=== PATIENT | female | born 1995 | race African-American/Black ===

== ENCOUNTER 2021-09-08 13:31 | Outpatient (CLI) | payer OTHER, SELFPAY ==
--- NOTE | ~2021-09-08 | XR_ITS ---
XR abdomen/kub 1V DATE: 09/08/2021 13:53 INDICATION: Abdominal pain. Constipation. TECHNIQUE: AP projection, 2 views COMPARISON: None FINDINGS: No bowel obstruction, visceromegaly or any significant abnormal calcification is noted. IMPRESSION: Negative Reviewed, dictated and finalized at [facility]. Reviewed, dictated and finalized at location A. IMPRESSION: Negative
== END 2021-09-08 13:32 | disposition home or self-care (01) ==
PROVIDERS: PCP Nurse Practitioner Family; Visit Provider Nurse Practitioner Family
DX: K59.00 Constipation, unspecified (principal)
CPT/HCPCS: 74018

== ENCOUNTER 2021-12-13 11:56 | Emergency (ER) | payer OTHER, SELFPAY ==
[2021-12-13 12:01] VITALS: BP 127/110; PULSE 150; RESP 32; TEMP 36.5; O2SAT 99
[2021-12-13 12:06] VITALS: BP 127/110; PULSE 150; RESP 32; TEMP 36.5; O2SAT 99
--- NOTE | 2021-12-13 12:37 | ED.GENADULT ---
HPI - General Adult General Chief complaint: Abdominal Pain Stated complaint: VOMITING/ABD PAIN/SOB/TIRED Time Seen by Provider: 12/13/21 12:22 Source: patient Mode of arrival: ambulatory Limitations: no limitations History of Present Illness HPI narrative: Patient presents today complaining of pain to her abdominal muscles after vomiting 3 x 2 days ago. Also complains of fatigue. States she is no longer nauseated and has not been vomiting since the 3 episodes 2 days ago. She has been taking fluids normally and voiding normal amounts. She has not really tried much food since the vomiting episodes. She has tried some ibuprofen for her abdominal muscle pain, without much relief. She denies that she has any additional pains. Pain increases when she moves or take deep breaths. Denies fever. Reports some constipation for the last couple of days, but has been taking Dulcolax with some small results this morning. Related Data Home Medications Medication Instructions Recorded Confirmed hydrochlorothiazide 25 mg tablet 1 tablet PO DAILY 12/13/21 12/13/21 norethindrone (contraceptive) 0.35 1 tablet PO DAILY 12/13/21 12/13/21 mg tablet Allergies Allergy/AdvReac Type Severity Reaction Status Date / Time No Known Allergies Allergy Verified 12/13/21 12:05 Review of Systems Review of Systems: CONSTITUTIONAL: Denies body aches, fever, chills, or sweats.+ Fatigue EYES: Denies visual changes, redness, or discharge. ENT: Denies rhinorrhea, congestion, sore throat, or otalgia. CARDIOVASCULAR: Denies chest pain, palpitations, or edema. RESPIRATORY: Denies cough or dyspnea. GASTROINTESTINAL: Denies abdominal pain, nausea, vomiting, or diarrhea.+ Abdominal muscle pain GENITOURINARY: Denies dysuria or hematuria. SKIN: Denies rash, itching, or wounds. MUSCULOSKELETAL: Denies back pain, joint pain, or myalgia. NEUROLOGIC: Denies headache, numbness, tingling, or weakness. PSYCH: Denies depression or anxiety. PMFSH Comments At time of signature, I have reviewed and agree with nursing past medical, surgical, social and family history unless otherwise noted. Please see nursing chart for further information. There is no relevant family history pertinent to the presenting complaint Exam Narrative: GENERAL: Mildly ill-appearing, well-nourished, and in mild pain distress with movement only HEAD: Normocephalic, atraumatic. EYES: EOMI. No redness or drainage. Conjunctivae normal. ENT: Mucous membranes pink and moist. NECK: Normal AROM. Supple. No lymphadenopathy. CHEST: No respiratory distress. Clear to auscultation. HEART: Regular rate and rhythm. No murmur appreciated. Normal peripheral pulses. ABDOMEN: Soft, nondistended, normal active bowel sounds.+generalized abdominal tenderness. No rebound or guarding. Pt localizes her most severe discomfort in the bilateral waist. Pain in abdomen with inspiration EXTREMITIES: Normal range of motion. No edema. SKIN: Warm, dry, no rash. Capillary refill normal. Normal skin turgor. NEURO: No focal deficits. Alert and oriented x3. Gait steady. PSYCH: Normal affect. No signs of depression or anxiety. Course Course Emergency Course: 1315- Patient states abdominal pain has improved after toradol. VS repeated by RN. HR continues to be elevated at 142. Now adds that she is very thirsty but has been drinking plenty. Level of Care: Express Care Visit Vital Signs Vital signs: Vital Signs Temperature 97.7 F 12/13/21 12:01 Pulse Rate 150 H 12/13/21 12:01 Respiratory Rate 32 H 12/13/21 12:01 Blood Pressure 127/110 H 12/13/21 12:01 Pulse Oximetry 99 12/13/21 12:01 Oxygen Delivery Room Air 12/13/21 12:01 Temperature 97.7 F 12/13/21 12:06 Pulse Rate 142 H 12/13/21 13:04 Respiratory Rate 18 12/13/21 13:04 Blood Pressure 145/97 H 12/13/21 13:04 Pulse Oximetry 99 12/13/21 13:04 Oxygen Delivery Room Air 12/13/21 13:04 Reviewed. Pt has been instructed to fo
[2021-12-13] MEDS: KETOROLAC (*BKC) 60 MG/2 ML VIAL IM (12:41)
[2021-12-13 13:04] VITALS: BP 145/97; PULSE 142; RESP 18; O2SAT 99
--- NOTE | 2021-12-13 13:13 | ECG_ITS ---
Measurements Intervals [place] Rate: 136 P: 30 [place]: 173 QRS: 80 QRSD: 86 T: -23 QT: 330 QTc: 498 Interpretive Statements SINUS TACHYCARDIA ST-T WAVE ABNORMALITY IN INFERIOR LEADS- CONSIDER ISCHEMIA ABNORMAL ECG Electronically Signed On 12-13-2021 17:20:24 CDT by Pavan Lang D.O.
[2021-12-13 14:23] LABS: Glucose Point of Care 233 mg/dl (65-105)
== END 2021-12-13 13:39 | disposition short-term general hospital (02) ==
PROVIDERS: Emergency Provider Nurse Practitioner; PCP Nurse Practitioner Family
DX: R10.9 Unspecified abdominal pain (principal); R00.0 Tachycardia, unspecified
CPT/HCPCS: 82948; 93005; 96372; 99213; G0463; J1885

== ENCOUNTER 2021-12-13 13:53 | Inpatient (IN) | payer OTHER, SELFPAY ==
[2021-12-13] VITALS (8 sets, daily range): BP systolic 112–167; BP diastolic 66–124; PULSE 114–142; RESP 16–38; TEMP 36.4; O2SAT 97–100
--- NOTE | ~2021-12-13 | US_ITS ---
US abdomen limited DATE: 12/16/2021 09:12 INDICATION: Pancreatitis. Evaluate for gallstones. TECHNIQUE: Real-time imaging of liver, pancreas, gallbladder COMPARISON: 12/15/2021 CT abdomen pelvis FINDINGS: No hepatic space-occupying mass lesion is evident. Normal hepatopedal portal venous flow di rection. Common bile duct measures 3.9 mm, normal. There is prominent shadowing from the gallbladder contents consistent with cholelithiasis. The pancreas is largely obscured. IMPRESSION: Cholelithiasis Reviewed, dictated and finalized at [facility]. Reviewed, dictated and finalized at location [facility]. IMPRESSION: Cholelithiasis
--- NOTE | ~2021-12-13 | CT_ITS ---
EXAMINATION: CT abdomen pelvis w con DATE: 12/13/2021 15:57 INDICATION: diffuse abd most noted in epigastric and RUQ TECHNIQUE: Computed tomography (CT) of the abdomen and pelvis was performed with 100 mL Omnipaque-300 intravenous contrast. Automated exposure control and iterative reconstruction technique were employe d. The dose-length product was 1677.92 mGy-cm. COMPARISON: None. FINDINGS: Lower thorax: Bibasilar atelectasis. Liver: Steatosis. Biliary/Gallbladder: Normal size gallbladder, without stone. Mucosal hyperemia extending into the ext rahepatic ducts, likely reactive. No bile duct dilation. Pancreas: Edematous pancreas, with lack of enhancement involving the majority of the pancreatic body and a large peripancreatic fluid collection that extends into the mesentery, lesser sac, alison hepati s, perihepatic and perisplenic spaces, left pararenal space, left paracolic gutter, and deep pelvic s pace. The splenic vein, confluence, and proximal portal vein are narrowed, without definite thrombus. Spleen: Normal. Adrenals:No mass. Kidneys: No mass, stone, or hydronephrosis. GI tract: No small or large bowel dilation. Normal appendix. Mesentery/Peritoneum: No free air or mass. Fluid as described above. Retroperitoneum: No mass. Fluid as described above. Pelvis: Pelvic organs are within normal limits. Fluid as described above. Soft Tissues: Soft tissues and body wall unremarkable. Bones: No acute osseous finding. IMPRESSION: Severe acute necrotizing pancreatitis. Reviewed, dictated and finalized at location [facility].
--- NOTE | ~2021-12-13 | CT_ITS ---
EXAMINATION: CT abdomen pelvis w con DATE: 12/15/2021 09:44 INDICATION: Pancreatitis TECHNIQUE: Computed tomography (CT) of the abdomen and pelvis was performed with 100 mL Omnipaque-300 intravenous contrast. Automated exposure control and iterative reconstruction technique were employe d. The dose-length product was 1561.21 mGy-cm. COMPARISON: None FINDINGS: Small bilateral posterior layering pleural effusions with associated compressive atelectasis in the b ilateral lower lobes. Cardiomegaly. No pericardial effusion. Liver, gallbladder, spleen, bilateral ad renal glands and kidneys are normal. Again seen is diffuse pancreatic edema with geographic region of absent parenchymal enhancement at the tail of the pancreas consistent with necrotic pancreatitis. Pe rsistent still nonorganized appearing acute peripancreatic fluid collection no evident abscesses, pse udocyst or walled off necrosis. Prominent likely reactive periportal lymphadenopathy. No evident thro mbosis of the splenic, superior mesenteric or portal veins. Additional small amount of ascites in the abdomen and pelvis. Bladder, uterus and bilateral adnexa are normal. There is edematous wall thicken ing of the splenic flexure and descending colon most likely reactive related to the adjacent acute pa ncreatitis although differential includes other nonspecific colitis. No bowel obstruction. Normal brianda endix. Bones are unremarkable. IMPRESSION: 1. No significant interval change in acute necrotic pancreatitis with radionecrosis at the body of th e pancreas and surrounding nonorganized appearing acute peripancreatic fluid collection. 2. Wall thickening at the splenic flexure and descending colon most likely reactive related to the ad jacent pancreatitis although differential would include other nonspecific colitis which could be infe ctious, inflammatory or ischemic etiology. 3. Small amount of more diffuse ascites and small bilateral pleural effusions. 4. Mild cardiomegaly. Reviewed, dictated and finalized at location A. IMPRESSION: 1. No significant interval change in acute necrotic pancreatitis with radionecr osis at the body of the pancreas and surrounding nonorganized appearing acute p eripancreatic fluid collection. 2. Wall thickening at the splenic flexure and descending colon most likely reac tive related to the adjacent pancreatitis although differential would include o ther nonspecific colitis which could be infectious, inflammatory or ischemic et iology. 3. Small amount of more diffuse ascites and small bilateral pleural effusions. 4. Mild cardiomegaly.
--- NOTE | ~2021-12-13 | CT_ITS ---
EXAMINATION: CTA chest PE protocol DATE: 12/14/2021 22:52 INDICATION: Shortness of breath TECHNIQUE: Computed tomography angiography (CTA) of the chest was performed with 100 mL Omnipaque-350 intravenous contrast timed to evaluate the pulmonary arteries. Coronal maximum intensity projection 3D-reconstructions were created by the technologist. The dose-length product (DLP) was 757.84 mGy-cm. Automated exposure control and iterative reconstruction technique were employed. COMPARISON: None. FINDINGS: The pulmonary arteries are well-opacified. No pulmonary embolism is identified. Respiratory motion artifact slightly limits the exam. There are small pleural effusions. There is passive depend ent atelectasis in the lungs. Areas of patchy airspace opacity are noted in the upper lobes. No pneum othorax. Cardiomegaly is noted. No pathologically enlarged thoracic lymph nodes are identified. There is a small volume of ascites in the upper abdomen. IMPRESSION: 1. No pulmonary embolus identified. 2. Small pleural effusions with atelectasis versus pneumonia in the lower lobes. 3. Cardiomegaly. Reviewed, dictated and finalized at location B. IMPRESSION: 1. No pulmonary embolus identified. 2. Small pleural effusions with atelectasis versus pneumonia in the lower lobes . 3. Cardiomegaly.
--- NOTE | ~2021-12-13 | XR_ITS ---
EXAMINATION: XR chest PICC line INDICATION: PICC insertion TECHNIQUE: Portable AP chest at 1156 hours COMPARISON: CT, 12/14/2021 FINDINGS: A right upper extremity PICC is followed to the midsuperior vena cava. There are small pleu ral effusions. Bibasilar airspace opacities persist without significant change. No pneumothorax is id entified. Cardiomegaly is noted. IMPRESSION: 1. Right upper extremity followed to the midsuperior vena cava. 2. Small pleural effusions. 3. Bibasilar airspace opacities, consistent with atelectasis versus pneumonia. Reviewed, dictated and finalized at location B.
--- NOTE | 2021-12-13 14:16 | ED.ABDPAIN ---
HPI - Abdominal Pain General Chief Complaint: Abdominal Pain <Kody Evans MD - Last Filed: 12/16/21 07:01> Stated Complaint: abd pain, fast HR <Kody Evans MD - Last Filed: 12/16/21 07:01> Time Seen by Provider: 12/13/21 14:04 <Kody Evans MD - Last Filed: 12/16/21 07:01> Source: patient <Kody Evans MD - Last Filed: 12/16/21 07:01> History of Present Illness HPI narrative: Patient presents with abdominal pain nausea vomiting and tachycardia. Patient ports she has had diffuse abdominal pain mostly in the epigastric area for the past few days associate with nausea and vomiting. She thought her abdominal pain is related to her vomiting is just muscle soreness. Denies any diarrhea or fevers. She denies any blood or bile in her excretions. She denies any urinary symptoms she does report increased thirst. She initially presented to an urgent care and was found to have a heart rate of the 150s so she came to the ER for further evaluation. <Kody Evans MD - Last Filed: 12/16/21 07:01> Related Data Home Medications: Home Medications Medication Instructions Recorded Confirmed hydrochlorothiazide 25 mg tablet 1 tablet PO DAILY 12/13/21 12/15/21 norethindrone (contraceptive) 0.35 1 tablet PO DAILY 12/13/21 12/15/21 mg tablet <Kody Evans MD - Last Filed: 12/16/21 07:01> Allergies/Adverse Reactions: Allergies Allergy/AdvReac Type Severity Reaction Status Date / Time No Known Allergies Allergy Verified 12/13/21 12:05 <Kody Evans MD - Last Filed: 12/16/21 07:01> Review of Systems Review of Systems: CONSTITUTIONAL: Denies fever, chills, or sweats. EYES: Denies visual changes, redness, or discharge. ENT: Denies rhinorrhea, congestion, sore throat, or otalgia. CARDIOVASCULAR: Denies chest pain, palpitations, or edema. RESPIRATORY: Denies cough or dyspnea. GASTROINTESTINAL: Abdominal pain with nausea and vomiting GENITOURINARY: Denies dysuria or hematuria. SKIN: Denies rash or itching. MUSCULOSKELETAL: Denies back pain, joint pain, or myalgia. NEUROLOGIC: Denies headache, numbness, dizziness, or weakness. PSYCHIATRIC: Denies anxiety or depression. <Kody Evans MD - Last Filed: 12/16/21 07:01> All systems reviewed & are unremarkable except as noted in HPI and below <Kody Evans MD - Last Filed: 12/16/21 07:01> PMFSH Past Medical History Medical History: Medical History Hypertension <Kody Evans MD - Last Filed: 12/16/21 07:01> Family History Family History: Family History Mother Heart disease Renal failure Hypertension Grandparent Hypertension History of TIAs <Kody Evans MD - Last Filed: 12/16/21 07:01> Social History Social History: Social History (Updated 12/15/21 @ 11:00 by SILAS Mcgill) Social History: Patient currently lives with her mother and her grandmother. She has no pets. Her mother Anita will be her surrogate. She wishes to be a full code. Smoking status: Never smoker Alcohol intake: never Substance use: current Substance use type: marijuana Other substance usage details: marijuana not often once every 2 months Last use: 11/09/21 Living arrangements: with family Additional living arrangements comments: Lives with her mother and grandmother Occupation/Education: occupation Additional occupation/education comments: [employer] in [place] Gender identity (if verbalized by the patient): Female Sexual Orientation (if Verbalized by the Patient): Straight or Heterosexual Spiritual care concerns: No Agree to blood products: Yes <Kody Evans MD - Last Filed: 12/16/21 07:01> Exam Narrative: GENERAL: Well-appearing, well-nourished, and in no acute distress. HEAD: Normocephalic, atraumatic. EYES: PERRLA and EOMI.
[2021-12-13] MEDS: SODIUM CHLORIDE 0.9% IV 1,000 ML 999 ML IV CONT ×3 (14:18→21:28)
[2021-12-13] MEDS: ONDANSETRON INJ 4 MG/2 ML VIAL IV PUSH (14:19)
[2021-12-13 14:25] LABS: Hematocrit 47.9 % (37.0-47.0); Hemoglobin 15.5 g/dL (12.0-15.0); Mean Corpuscular HGB Conc 32.4 g/dl (32-36); Mean Corpuscular Hemoglobin 25.8 pg (26-34); Mean Corpuscular Volume 79.7 fl (80-100); Mean Platelet Volume 9.6 fl (7.4-10.4); Platelet Count Result 392 k/mm3 (150-375); Red Blood Count 6.01 M/mm3 (4.2-5.4); Red Cell Distribution Width 13.7 % (11.5-14.5); White Blood Count 31.8 K/mm3 (4.5-10.0)
[2021-12-13 14:39] LABS: Alanine Aminotransferase 40 U/L (6-35); Albumin Level 3.9 g/dL (3.5-5.1); Alkaline Phosphatase 112 U/L (38-126); Anion Gap 11 mmol/L (8-16); Aspartate Amino Transferase 40 U/L (14-36); Bilirubin,Total 1.8 mg/dL (0.2-1.3); Blood Urea Nitrogen 16 mg/dL (7-17); Calcium 8.2 mg/dL (8.4-10.2); Carbon Dioxide 25 mmol/L (22-30); Chloride 95 mmol/L (98-107); Estimated CRCL calculation 75 ml/min; Estimated Glomerular Filt Rate > 60; Glucose 203 mg/dL (65-110); Potassium 2.7 mmol/L (3.4-5.0); Sodium 131 mmol/L (137-145)
[2021-12-13 14:40] LABS: Beta-Hydroxybutyrate/Acetoacetate 0.26 mmol/L (0.02-0.27)
--- NOTE | 2021-12-13 14:41 | ECG_ITS ---
Measurements Intervals [place] Rate: 112 P: 7 [place]: 130 QRS: 56 QRSD: 82 T: -19 QT: 353 QTc: 484 Interpretive Statements SINUS TACHYCARDIA BORDERLINE ST-T WAVE ABNORMALITY- INFERIOR LEADS BASELINE ARTIFACT- V6 ABNORMAL ECG Electronically Signed On 12-13-2021 17:24:29 CDT by Pavan Lang D.O.
[2021-12-13 15:00] LABS: Lipase 5444 U/L (23-300)
[2021-12-13 15:09] LABS: Band Neutrophils Percent 7 % (0-6); Lymphocytes Absolute Manual 1.27 K/mm3 (1.1-4.5); Monocytes Absolute Manual 3.18 K/mm3 (0.1-0.90); Monocytes Percent Manual 10 % (3-9); Neutrophils Absolute Manual 27.34 K/mm3 (1.7-7.2); Neutrophils Percent Manual 79 % (46-73); Total Cells Counted 100
[2021-12-13 15:10] LABS: Stomatocytes 1+ (NORMAL)
[2021-12-13] MEDS: KCL 20 MEQ/SW 100 ML 100 ML 50 MEQ IVPB (15:27)
[2021-12-13] MEDS: KETOROLAC 15 MG/ML VIAL (*BKC) IV PUSH (15:27)
[2021-12-13 16:14] LABS: SARS-CoV-2 RNA PCR Negative
[2021-12-13 16:16] LABS: Triglycerides 80 mg/dL (<150)
[2021-12-13] MEDS: SODIUM CHLORIDE 0.9% IV 2,000 ML 999 ML IV CONT (16:50)
[2021-12-13 16:54] LABS: Appearance Urine Slightly Cloudy (Clear); Bilirubin Urine 1+ (Negative); Color Urine Yellow (Yellow); Glucose Urine UA Negative (Negative); Ketones Urine Negative (Negative); Leukocyte Esterase Ur Negative LEU/UL (Negative); Nitrate Urine Negative (Negative); Protein Urine 2+ mg/dL (Negative); Specific Grav Ur 1.025 (1.001-1.035)
[2021-12-13 16:59] LABS: Add Urine Microscopic? YES; Blood Urine Trace-Intact (Negative); Mucus Urine Few /lpf; Squamous Epithelial Cell Urine Many /hpf (Few)
[2021-12-13 17:34] LABS: Magnesium 1.7 mg/dL (1.6-2.3); Phosphorus 3.7 mg/dL (2.5-4.5)
[2021-12-13] MEDS: MORPHINE SULFATE (*CRX) 4 MG/ML INJ IV PUSH (19:00)
[2021-12-13 20:20] LABS: Lactic Acid Reflex 2.3 mmol/L (0.7-2.0)
[2021-12-13 23:08] LABS: Reflex Lactic Acid Yes or No Add Lactic
[2021-12-14] VITALS (78 sets, daily range): BP systolic 120–153; BP diastolic 57–91; PULSE 87–135; RESP 12–46; TEMP 37–38.7; O2SAT 92–100
[2021-12-14] MEDS: SODIUM CHLORIDE 0.9% IV 1,000 ML 125 ML IV CONT ×3 (00:14→18:07)
[2021-12-14 00:40] LABS: Lactic Acid 1.6 mmol/L (0.7-2.0)
--- NOTE | 2021-12-14 00:51 | PC.NURSE ---
Spoke with Janki from [facility] transfer center. No beds at this time, will call back in 12 hours with update.
--- NOTE | 2021-12-14 05:24 | PC.NURSE ---
RN and EDP tech attempted morning lab draw, no success. This RN called phlebotomy who states they will come when available.
[2021-12-14] MEDS: hydroCHLOROthiazide 25 MG TABLET PO (13:34)
--- NOTE | 2021-12-14 15:42 | ECG_ITS ---
Measurements Intervals [place] Rate: 111 P: 6 [place]: 139 QRS: 36 QRSD: 103 T: 22 QT: 262 QTc: 356 Interpretive Statements SINUS TACHYCARDIA NONSPECIFIC T-WAVE ABNORMALITY- ANT/INF LEADS ABNORMAL ECG Electronically Signed On 12-16-2021 15:44:35 CDT by Pavan aLng D.O.
--- NOTE | 2021-12-14 15:47 | PC.NURSE ---
Nick Setter spoke with [facility] transfer center. still no beds available at this time. pt updated. no requests at this time. pt resting comfortably in hospital stretcher.
[2021-12-14 18:25] LABS: Basophils Percent Auto 0.2 % (0.2-1.2); Eosinophils Percent Auto 0.1 % (0-4.4); Hematocrit 35.4 % (37.0-47.0); Hemoglobin 11.4 g/dL (12.0-15.0); Immature Granulocyte Absolute 0.27 K/mm3 (0.00-0.031); Immature Granulocyte Percent A 1.4 % (0-0.5); Lymphocytes Absolute Auto 1.66 K/mm3 (0.9-3.2); Lymphocytes Percent Auto 8.4 % (18.3-44.2); Mean Corpuscular HGB Conc 32.2 g/dl (32-36); Mean Corpuscular Hemoglobin 26.2 pg (26-34); Mean Corpuscular Volume 81.4 fl (80-100); Mean Platelet Volume 9.7 fl (7.4-10.4); Monocytes Absolute Auto 1.1 K/mm3 (0.1-0.6); Monocytes Percent Auto 5.7 % (2.6-8.5); Neutrophils Absolute Auto 16.6 K/mm3 (1.3-6.7); Neutrophils Percent Auto 84.2 % (45.5-73.1); Platelet Count Result 244 k/mm3 (150-375); Red Blood Count 4.35 M/mm3 (4.2-5.4); Red Cell Distribution Width 13.9 % (11.5-14.5); White Blood Count 19.7 K/mm3 (4.5-10.0)
--- NOTE | 2021-12-14 18:32 | PC.NURSE ---
called u access line [phone], no bed yet.
[2021-12-14 18:49] LABS: Alanine Aminotransferase 25 U/L (6-35); Albumin Level 3.2 g/dL (3.5-5.1); Alkaline Phosphatase 85 U/L (38-126); Anion Gap 6 mmol/L (8-16); Aspartate Amino Transferase 28 U/L (14-36); Blood Urea Nitrogen 11 mg/dL (7-17); Calcium 7.4 mg/dL (8.4-10.2); Carbon Dioxide 26 mmol/L (22-30); Chloride 103 mmol/L (98-107); Estimated CRCL calculation 109 ml/min; Estimated Glomerular Filt Rate > 60; Glucose 103 mg/dL (65-110); Lipase 1353 U/L (23-300); Potassium 2.7 mmol/L (3.4-5.0); Sodium 135 mmol/L (137-145)
[2021-12-14] MEDS: KCL 40 MEQ/WATER 100 ML 100 ML 25 ML IVPB (19:50)
--- NOTE | 2021-12-14 22:25 | PC.NURSE ---
called [facility] transfer center to check on bed status. No bed available yet.
[2021-12-15] VITALS (37 sets, daily range): BP systolic 122–147; BP diastolic 69–83; PULSE 84–138; RESP 14–42; TEMP 36.8–38.3; O2SAT 90–100; BMI 47.3
[2021-12-15] MEDS: ONDANSETRON INJ 4 MG/2 ML VIAL IV PUSH ×2 (00:32→11:17)
[2021-12-15] MEDS: SODIUM CHLORIDE 0.9% IV 1,000 ML 125 ML IV CONT (05:18)
--- NOTE | 2021-12-15 05:28 | PC.NURSE ---
Spoke with [facility] transfer center. They are still working on getting a bed for this patient.
[2021-12-15 06:15] LABS: Hematocrit 33.9 % (37.0-47.0); Hemoglobin 10.7 g/dL (12.0-15.0); Mean Corpuscular HGB Conc 31.6 g/dl (32-36); Mean Corpuscular Hemoglobin 25.8 pg (26-34); Mean Corpuscular Volume 81.7 fl (80-100); Mean Platelet Volume 9.7 fl (7.4-10.4); Platelet Count Result 248 k/mm3 (150-375); Red Blood Count 4.15 M/mm3 (4.2-5.4); Red Cell Distribution Width 14.1 % (11.5-14.5); White Blood Count 20.1 K/mm3 (4.5-10.0)
[2021-12-15 06:30] LABS: Alanine Aminotransferase 22 U/L (6-35); Albumin Level 3.3 g/dL (3.5-5.1); Alkaline Phosphatase 84 U/L (38-126); Anion Gap 7 mmol/L (8-16); Aspartate Amino Transferase 28 U/L (14-36); Bilirubin,Total 0.8 mg/dL (0.2-1.3); Blood Urea Nitrogen 7 mg/dL (7-17); Calcium 7.5 mg/dL (8.4-10.2); Carbon Dioxide 25 mmol/L (22-30); Chloride 103 mmol/L (98-107); Estimated CRCL calculation 123 ml/min; Estimated Glomerular Filt Rate > 60; Glucose 98 mg/dL (65-110); Lipase 496 U/L (23-300); Potassium 2.6 mmol/L (3.4-5.0); Sodium 135 mmol/L (137-145)
--- NOTE | 2021-12-15 07:24 | PC.NURSE ---
Assumed care of pt. at this time. Report from BOBBI Blanton
--- NOTE | 2021-12-15 07:38 | PC.NURSE ---
Bed status check at [facility] Per Tianna at [facility] - No ICU beds waiting on discharges and transfers will update
[2021-12-15] MEDS: POTASSIUM CHLORIDE INJ 40 MEQ in SODIUM CHLORIDE 0.9% IV 500 ML 130 MEQ IVPB ×2 (07:56→15:51)
[2021-12-15] MEDS: LACTATED RINGERS 1,000 ML 150 ML IV CONT (07:57)
[2021-12-15] MEDS: MORPHINE SULFATE (*CRX) 4 MG/ML INJ IV PUSH (08:01)
[2021-12-15 08:47] LABS: Band Neutrophils Percent 13 % (0-6); Hypochromasia 1+ (NORMAL); Monocytes Percent Manual 4 % (3-9); Neutrophils Absolute Manual 18.69 K/mm3 (1.7-7.2); Neutrophils Percent Manual 80 % (46-73); Platelet Estimate Adequate (Adequate); Total Cells Counted 100
[2021-12-15 08:48] LABS: Anisocytosis 1+ (NORMAL)
[2021-12-15] MEDS: hydroCHLOROthiazide 25 MG TABLET PO (09:26)
[2021-12-15] MEDS: PIPERACILLIN/TAZOBACTAM SOD 4.5 GM in SODIUM CHLORIDE 0.9% IV 100 ML 200 ML IVPB (10:18)
--- NOTE | 2021-12-15 10:51 | PM.IMHP ---
H&P: HPI History of Present Illness Date/Time: 12/15/21 10:00 Chief Complaint: Abdominal pain accompanied with nausea and vomiting Narrative: Patient is a 26-year-old female with a past medical history of hypertension who presented to the ED with abdominal pain for the past few days. Patient stated that on Tuesday night she started to have abdominal pain and felt like she to use the bathroom however she then started to vomit. It is on Tuesday she was really weak and short of breath and could not stand and was trying to take a shower she was unable to function at that time. She did take 2 Dulcolax at home trying to have bowel movement thinking that would solve her pain however which is causing have diarrhea on Tuesday and her pain is still there. On Tuesday she did go to urgent care however urgent care center to the hospital because her heart rate was elevated in the 150s. She did have any chest pain however she said she did have some palpitations and she still heart rate was up. Currently she is resting comfortably. Patient stated that they gave her some morphine to help with the diarrhea but she stated that she still has the pain and feels like she still could go to the bathroom. She did state that she was urinating about every hour and that she always has a headache. She denies any visual or hearing changes, dizziness, abnormal swelling, fevers, sweats, chills. It appears the ED did contact [facility] who accepted the patient. Repeat abdomen CT showed acute on chronic pancreatitis with radionecrosis of the bottom of the pancreas, wall thickening of the splenic flexure and descending colon. Patient is being admitted to the hospital service under in patient's service waiting bed placement a tertiary center. Review of Systems Review of Systems: All systems reviewed & are unremarkable except as noted in HPI and below PMFSH Past Medical History Medical History Hypertension Family History Family History Mother Heart disease Renal failure Hypertension Grandparent Hypertension History of TIAs Social History Social History (Updated 12/15/21 @ 11:00 by SILAS Mcgill) Social History: Patient currently lives with her mother and her grandmother. She has no pets. Her mother Anita will be her surrogate. She wishes to be a full code. Smoking status: Never smoker Alcohol intake: never Substance use: current Substance use type: marijuana Other substance usage details: marijuana not often once every 2 months Last use: 11/09/21 Living arrangements: with family Additional living arrangements comments: Lives with her mother and grandmother Occupation/Education: occupation Additional occupation/education comments: [employer] in [place] Gender identity (if verbalized by the patient): Female Sexual Orientation (if Verbalized by the Patient): Straight or Heterosexual Spiritual care concerns: No Agree to blood products: Yes Meds Home Medications and Allergies Home Medications Medication Instructions Recorded Confirmed Type hydrochlorothiazide 25 mg tablet 1 tablet PO DAILY 12/13/21 12/15/21 History norethindrone (contraceptive) 0.35 1 tablet PO DAILY 12/13/21 12/15/21 History mg tablet Allergies Allergy/AdvReac Type Severity Reaction Status Date / Time No Known Allergies Allergy Verified 12/13/21 12:05 Vital Signs Vital Signs - 24 hr 12/14/21 10:57 12/14/21 12:27 12/14/21 15:36 Temperature Pulse Rate 112 H 111 H 115 H Respiratory Rate 27 H 17 25 H Blood Pressure 150/70 H 153/91 H 133/80 Pulse Oximetry 99 96 98 Oxygen Delivery Oxygen Flow Rate 12/14/21 18:10 12/14/21 10:58 12/14/21 12:51 Temperature Pulse Rate 107 H 118 H 99 Respiratory Rate 27 H 27 H 34 H Blood Pressure 140/81 150/70 H Pulse Oximetry 99 99 Oxygen Delivery Oxygen Fl
--- NOTE | 2021-12-15 14:55 | ADMGEN ---
This patient, Deepti De La Fuente, was admitted to [facility] Surg Room 311-01. Patient/family oriented to hospital policies and general routines including ID bracelet, bed and alarms, visiting hours, pain management, procedures, bathroom and other care routines, personal items, smoking policy, room service/diet, and visiting hours. Information on how to activate the Rapid Response Team has been discussed. Patient/Family are encouraged to report perceived risks to care and to ask questions if they do not understand what they are told or what they should do.
[2021-12-15] MEDS: MORPHINE SULFATE (*CRX) 2 MG/ML INJ IV PUSH (18:43)
--- NOTE | 2021-12-15 19:10 | PM.CNGS ---
Assessment and Plan Assessment and plan (1) Acute necrotizing pancreatitis: Code(s): K85.91 - Acute pancreatitis with uninfected necrosis, unspecified Status: Acute Assessment and Plan: This appears to be severe even though the patient seems to be improving over the last 48 hours. Today her lipase is down to 469 so this is going the right direction. However, because of the severe changes and possible necrotizing changes on her original CT done on 12/13/2021, I asked the ER MD When she 1st called to consult me, to repeat it and they did this morning. This shows unchanged significant edema and some areas of questionable perfusion to the body or tail the pancreas. (see report). There was significant edema throughout the area of the pancreas including some signs of inflammation of the wall of the colon anterior and next to the pancreas and spleen. Etiology is questionable but patient denies use of alcohol for least 1 week prior to developing the pain described above, and she did state that she has some Trisha's about the middle of November. Also, her CT scan does not show any gallbladder inflammation, bile duct dilation, or signs of gallstones. And as for side effects from drugs which is the may be the 3rd most common cause for pancreatitis, she is on hydrochlorothiazide which has been implicated in the past to possibly lead to pancreatic inflammation. Her triglycerides were checked in the ER 2 days ago and these are normal, however will do a lipid panel in the morning to be sure other blood lipids are not elevated. (2) Hypertension: Code(s): I10 - Essential (primary) hypertension Status: Acute Assessment and Plan: continue to monitor. (3) Tachycardia: Code(s): R00.0 - Tachycardia, unspecified Status: Acute Assessment and Plan: EKG okay and it appears to be a sinus tachycardia. This is most likely due to fluid shifts and her pancreatitis. (4) Leukocytosis (leucocytosis): Qualifiers: Leukocytosis type: unspecified Qualified Code(s): D72.829 - Elevated white blood cell count, unspecified Code(s): D72.829 - Elevated white blood cell count, unspecified Status: Acute Assessment and Plan: Possibly related to atelectasis leading to pneumonia. ( Now patient on antibiotics) (5) Pneumonia: Code(s): J18.9 - Pneumonia, unspecified organism Status: Acute Assessment and Plan: suspected by chest x-ray (see report). History of Present Illness Consult details Consult date: 12/15/21 Reason for consult: abdominal pain Requesting physician: Gary Her APN-C Narrative: The patient is a 26-year-old [facility] female with a past medical history of hypertension who presented to the ED with abdominal pain and some episodes of nausea and vomiting on 12/13 for the few days prior to admission.? Patient stated that on Tuesday night she started to have abdominal pain and felt like she needed to use the bathroom, however she then started to vomit also earlier on Tuesday in the mid day she felt epigastric discomfort and thought she was hungry. She tried eating a Nickolas cracker and then later had a hamburger fries and some asparagus. It was after this last meal that she really got sicker.? Tuesday about midnight is the 1st time that she vomited. It is on Tuesday she was really weak and short of breath and could not stand and was trying to take a shower but she was really unable to function at that time.? She did take 2 Dulcolax tabs at home trying to have a bowel movement thinking that would solve her pain. However, i did not help immediately but while she was in the ED yesterday, Thursday 12/14, she had between 3 and 6 loose stools.? On Tuesday she did go to urgent care however urgent care sent her to the hospital because her heart rate was elevated in the 150s.? She did not have any chest pain however she said she did have some palpitations and she still he
[2021-12-15] MEDS: KCL 40 MEQ/0.45% NS 1,000 ML 100 ML IV CONT (22:27)
[2021-12-16] VITALS (8 sets, daily range): BP systolic 100–150; BP diastolic 45–89; PULSE 97–114; RESP 16–34; TEMP 36–37.7; O2SAT 91–99
[2021-12-16] MEDS: MORPHINE SULFATE (*CRX) 4 MG/ML INJ IV PUSH (01:59)
[2021-12-16] MEDS: KCL 40 MEQ/0.45% NS 1,000 ML 100 ML IV CONT ×2 (05:53→18:56)
[2021-12-16 07:31] LABS: Basophils Absolute Auto 0.1 K/mm3 (0.0-0.1); Basophils Percent Auto 0.3 % (0.2-1.2); Eosinophils Absolute Auto 0.1 K/mm3 (0-0.3); Eosinophils Percent Auto 0.4 % (0-4.4); Hematocrit 30.3 % (37.0-47.0); Hemoglobin 9.5 g/dL (12.0-15.0); Immature Granulocyte Absolute 0.17 K/mm3 (0.00-0.031); Immature Granulocyte Percent A 1.1 % (0-0.5); Lymphocytes Percent Auto 10.5 % (18.3-44.2); Mean Corpuscular HGB Conc 31.4 g/dl (32-36); Mean Corpuscular Hemoglobin 25.7 pg (26-34); Mean Corpuscular Volume 81.9 fl (80-100); Mean Platelet Volume 10.2 fl (7.4-10.4); Monocytes Absolute Auto 1.6 K/mm3 (0.1-0.6); Monocytes Percent Auto 10.1 % (2.6-8.5); Neutrophils Absolute Auto 12.5 K/mm3 (1.3-6.7); Neutrophils Percent Auto 77.6 % (45.5-73.1); Platelet Count Result 286 k/mm3 (150-375); Red Cell Distribution Width 14.1 % (11.5-14.5); White Blood Count 16.2 K/mm3 (4.5-10.0)
[2021-12-16 07:45] LABS: Alanine Aminotransferase 17 U/L (6-35); Albumin Level 3.1 g/dL (3.5-5.1); Alkaline Phosphatase 80 U/L (38-126); Anion Gap 8 mmol/L (8-16); Aspartate Amino Transferase 24 U/L (14-36); Blood Urea Nitrogen 5 mg/dL (7-17); Calcium 7.5 mg/dL (8.4-10.2); Carbon Dioxide 25 mmol/L (22-30); Chloride 99 mmol/L (98-107); Cholesterol 103 mg/dL (0-200); Estimated CRCL calculation 151 ml/min; Estimated Glomerular Filt Rate > 60; Glucose 106 mg/dL (65-110); HDL Direct 16 mg/dL; Lipase 120 U/L (23-300); Magnesium 1.9 mg/dL (1.6-2.3); Potassium 2.7 mmol/L (3.4-5.0); Sodium 132 mmol/L (137-145); Triglycerides 97 mg/dL (<150)
--- NOTE | 2021-12-16 07:45 | P.PNIM_ITS ---
Progress Note: A&P Assessment and Plan (1) Acute necrotizing pancreatitis: Code(s): K85.91 - Acute pancreatitis with uninfected necrosis, unspecified Status: Acute Assessment and Plan: * CT the abdomen pelvis showed necrotizing pancreatitis at the body of the pancreas * Continue Zosyn day 2 * Lipase is 120 today was 1353 upon admission * NPO diet * KCL in 0.45NS at 100ml/hr an hour * Pain medications morphine 4 mg IV Q 4 p.r.n. * Zofran 4 mg IV Q 4 p.r.n. * Repeat CT of abdomen and pelvis showed no changes 12/14/21 * Ultrasound RUQ per general surgery * Protonix ordered BID * [facility] accepted patient awaiting bed placement (2) Hypertension: Code(s): I10 - Essential (primary) hypertension Status: Acute Assessment and Plan: * Current blood pressure 100/45 * Hold hydrochlorothiazide which will need to be stopped as this could be the reason for the pancreatitis * Hydralazine p.r.n. with parameters * Trend blood pressure * Adjust therapy as indicated (3) Anemia: Code(s): D64.9 - Anemia, unspecified Status: Acute Assessment and Plan: * H/H 9.5/30.3 * Anemia Labs ordered in the am * Consider supplementation if indicated * Trend H/H * Transfuse as indicated (4) Sepsis: Code(s): A41.9 - Sepsis, unspecified organism Status: Acute Assessment and Plan: * Sepsis criteria may leukocytosis of white count 20.1, fever of 101.6, respirations in the 30s, lactic acid 2.3 * Source of infection is necrotizing pancreatitis * Blood cultures ordered and still pending * Continue Zosyn * Trend vital signs * Trend labs * Seems to be resolving WBC trending down and is current 16.2 (5) Pneumonia: Code(s): J18.9 - Pneumonia, unspecified organism Status: Acute Assessment and Plan: * CTA shows PNA * Continue azithromycin * WBC trending down to 16.2 * Sputum culture ordered * Repeat chest xray tomorrow (6) Tachycardia: Code(s): R00.0 - Tachycardia, unspecified Status: Acute Assessment and Plan: * HR is low 97 * Fluid were given in the ed * 40KCL/0.45%NS continued at 100ml/hr * shelter monitor * Trend HR * Probably related to Dehydration (7) Diarrhea: Code(s): R19.7 - Diarrhea, unspecified Status: Acute Assessment and Plan: * Complaining of frequent diarrhea * Consider immodium for control Time Spent With Patient Time with patient: Greater than 35 minutes Subjective Date/time seen: 12/16/21744 Interval history: 12/16/21744 Patient states that she is doing okay today. She does have some pain in her left side. She does state that she is feeling better. Her biggest complaint is diarrhea. Probably the reason for her low potassium. Potassium is 2.7 again today. Fluids have K added at this point. Lipase is lower today 120. She is tolerating ice chips. WBC is 16.2 which is decreasing. She denies chest pain, shortness of breath, nausea, vomiting. Did discuss the case with Dr. Monzon. Plan is to order an ultrasound. Since her lipase is decreasing she is being started on clear liquids. 12/15/21? 10:00 Patient is a 26-year-old female with a past medical history of hypertension who presented to the ED with abdominal pain for the past few days.? Patient stated that on Tuesday nig
--- NOTE | 2021-12-16 07:45 | PM.IMPN ---
Progress Note: A&P Assessment and Plan (1) Acute necrotizing pancreatitis: Code(s): K85.91 - Acute pancreatitis with uninfected necrosis, unspecified Status: Acute Assessment and Plan: CT the abdomen pelvis showed necrotizing pancreatitis at the body of the pancreas Continue Zosyn day 2 Lipase is 120 today was 1353 upon admission NPO diet KCL in 0.45NS at 100ml/hr an hour Pain medications morphine 4 mg IV Q 4 p.r.n. Zofran 4 mg IV Q [address] of abdomen and pelvis showed no changes 12/14/21 Ultrasound RUQ per general surgery Protonix ordered BID [facility] accepted patient awaiting bed placement (2) Hypertension: Code(s): I10 - Essential (primary) hypertension Status: Acute Assessment and Plan: Current blood pressure 100/45 Hold hydrochlorothiazide which will need to be stopped as this could be the reason for the pancreatitis Hydralazine p.r.n. with parameters Trend blood pressure Adjust therapy as indicated (3) Anemia: Code(s): D64.9 - Anemia, unspecified Status: Acute Assessment and Plan: H/H 9.5/30.3 Anemia Labs ordered in the am Consider supplementation if indicated Trend H/H Transfuse as indicated (4) Sepsis: Code(s): A41.9 - Sepsis, unspecified organism Status: Acute Assessment and Plan: Sepsis criteria may leukocytosis of white count 20.1, fever of 101.6, respirations in the 30s, lactic acid 2.3 Source of infection is necrotizing pancreatitis Blood cultures ordered and still pending Continue Zosyn Trend vital signs Trend labs Seems to be resolving WBC trending down and is current 16.2 (5) Pneumonia: Code(s): J18.9 - Pneumonia, unspecified organism Status: Acute Assessment and Plan: CTA shows PNA Continue azithromycin WBC trending down to 16.2 Sputum culture ordered Repeat chest xray tomorrow (6) Tachycardia: Code(s): R00.0 - Tachycardia, unspecified Status: Acute Assessment and Plan: HR is low 97 Fluid were given in the ed 40KCL/0.45%NS continued at 100ml/hr quality assurance monitor chassis Trend HR Probably related to Dehydration (7) Diarrhea: Code(s): R19.7 - Diarrhea, unspecified Status: Acute Assessment and Plan: Complaining of frequent diarrhea Consider immodium for control Time Spent With Patient Time with patient: Greater than 35 minutes Subjective Date/time seen: 12/16/21744 Interval history: 12/16/21744 Patient states that she is doing okay today. She does have some pain in her left side. She does state that she is feeling better. Her biggest complaint is diarrhea. Probably the reason for her low potassium. Potassium is 2.7 again today. Fluids have K added at this point. Lipase is lower today 120. She is tolerating ice chips. WBC is 16.2 which is decreasing. She denies chest pain, shortness of breath, nausea, vomiting. Did discuss the case with Dr. Monzon. Plan is to order an ultrasound. Since her lipase is decreasing she is being started on clear liquids. 12/15/21? 10:00 Patient is a 26-year-old female with a past medical history of hypertension who presented to the ED with abdominal pain for the past few days.? Patient stated that on Tuesday night she started to have abdominal pain and felt like she to use the bathroom however she then started to vomit.? It is on Tuesday she was really weak and short of breath and could not stand and was trying to take a shower she was unable to function at that time.? She did take 2 Dulcolax at home trying to have bowel movement thinking that would solve her pain however which is causing have diarrhea on Tuesday and her pain is still there.? On Tuesday she did go to urgent care however urgent care center to the hospital because her heart rate was elevated in the 150s.? She did have any chest pain emilia
[2021-12-16 07:49] LABS: LDL Cholesterol Direct 61 mg/dL
[2021-12-16 08:33] LABS: Phosphorus 2.6 mg/dL (2.5-4.5)
[2021-12-16 08:49] LABS: Iron < 10 ug/dL (37-170)
[2021-12-16 09:00] LABS: Percent Iron Saturation 4 % (20-50)
[2021-12-16 09:02] LABS: Transferrin 138 mg/dL (206-381)
[2021-12-16 10:54] LABS: Folic Acid 9.4 ng/mL (2.76->20)
[2021-12-16] MEDS: LIDOCAINE HCL 1% LOCAL INJ 2 ML AMPUL 5 ML INFILTRATE (11:15)
[2021-12-16] MEDS: POTASSIUM CHLORIDE 20 MEQ TABLET 80 MEQ PO (12:18)
[2021-12-16] MEDS: POTASSIUM CHLORIDE INJ 40 MEQ in SODIUM CHLORIDE 0.9% IV 500 ML 75 MEQ IVPB (12:19)
[2021-12-16] MEDS: LOPERAMIDE HCL 2 MG CAPSULE PO (12:28)
[2021-12-16] MEDS: PANTOPRAZOLE SODIUM IV 40 MG VIAL IV PUSH ×2 (12:28→20:26)
--- NOTE | 2021-12-16 12:28 | PM.PNGS ---
Progress Note: A&P Assessment and Plan (1) Acute necrotizing pancreatitis: Code(s): K85.91 - Acute pancreatitis with uninfected necrosis, unspecified Status: Acute Assessment and Plan: Presented with necrotizing pancreatitis with a peripancreatic fluid collection that does not appear to be organized. CT abd/pelvis repeated yesterday without significant change. Continue to clinically improve. Lipase down to normal today. WBC trending down to 16K. Will start clear liquids. Continue IV fluids. RUQ US ordered today to evaluate for cholelithiasis as a cause, which did show gallstones. Discussed with Dr. Monzon, who will discuss with our colleagues to see if and when a cholecystectomy would be recommended. This is the most likely cause of her pancreatitis, although there was some concern of the HCTZ being a potential etiology for medication-induced pancreatitis. Hospitalist is going to switch her oral hypertensive and stop the HCTZ. Still awaiting bed placement at [facility]. Will have repeat labs in for tomorrow if she is not transferred today. (2) Hypertension: Code(s): I10 - Essential (primary) hypertension Status: Acute Assessment and Plan: HCTZ stopped. Hydralazine IV PRN for now. Management per Hospitalist. (3) Tachycardia: Code(s): R00.0 - Tachycardia, unspecified Status: Acute Assessment and Plan: (4) Pneumonia: Code(s): J18.9 - Pneumonia, unspecified organism Status: Acute Assessment and Plan: Imaging suggesting pneumonia. Currently on IV Azithromycin. Management per Hospitalist. (5) Diarrhea: Code(s): R19.7 - Diarrhea, unspecified Status: Acute Assessment and Plan: New complaint since being admitted. There is mention of wall thickening of the splenic flexure and descending colon that could be colitis or adjacent inflammation due to the pancreatitis. Given Imodium once today. WBC trending down. Continue to monitor. Plan I have discussed the patient's case and plan of care with Dr. Monzon. Subjective Subjective Date/Time Seen: 12/16/21 12:28 Patient reports: no new complaints, feels better, pain is less, tolerating liquids well, flatus, diarrhea and afebrile Interval history: This is a 26-year-old female who presented to the ER with complaints of abdominal pain and was found to have evidence of necrotizing pancreatitis through workup in the ED. initially, there was an attempt to transfer her to [facility] and she was boarded in the ER due to no bed availability. She has since been admitted for treatment and monitoring while awaiting bed at [facility]. Chart reviewed. Patient seen and examined. She reports feeling much better than when she had initially come into the ER. She reports no abdominal pain unless her abdomen is palpated or if she moves or bends. Her tenderness is primarily in the left upper quadrant. She denies any nausea this morning and no vomiting since being in the hospital. Last dose of Zofran was yesterday morning. She is complaining of diarrhea that started while in the ER. She reports 4 liquid bowel movements already this morning since midnight last night. She had 1 episode of slight stool incontinence when trying to make it to the bathroom. No other complaint at this time. She tolerated clear liquids this morning. Review of Systems Review of Systems: All systems reviewed & are unremarkable except as noted in HPI and below Exam Const: General: comfortable, no acute distress and awake Nutritional Appearance: obese morbidly obese Orientation/consciousness: patient oriented x3 Resp: Effort & Inspection: normal respiratory effort Auscultation: clear to auscultation bilaterally Cardio: Rate: tachycardic Rhythm: regular rhythm GI: Inspection: Pannus present and obesity GI Palp: Yes Soft to palpation, Yes Tenderness to palpation present (GI) (epigastric and LUQ), Yes Guarding due to palpation
[2021-12-16] MEDS: CENTRAL LINE FLUSH 10 ML IV PUSH (14:09)
--- NOTE | 2021-12-16 14:48 | WPDGICN ---
Assessment and Plan Assessment and plan (1) Acute necrotizing pancreatitis: Code(s): K85.91 - Acute pancreatitis with uninfected necrosis, unspecified Status: Acute Assessment and Plan: slowly improving repeat CT scan no new changes liquid diet for now could be due to cholelithiasis normalization of liver enzymes with normal size bile duct surgery on board transfer to tertiary center pending (2) Nausea & vomiting: Qualifiers: Vomiting type: unspecified Qualified Code(s): R11.2 - Nausea with vomiting, unspecified Code(s): R11.2 - Nausea with vomiting, unspecified Status: Acute Assessment and Plan: improved CL diet (3) Diarrhea: Code(s): R19.7 - Diarrhea, unspecified Status: Acute (4) Leukocytosis (leucocytosis): Qualifiers: Leukocytosis type: unspecified Qualified Code(s): D72.829 - Elevated white blood cell count, unspecified Code(s): D72.829 - Elevated white blood cell count, unspecified Status: Acute Assessment and Plan: probably stress response (5) Hypertension: Code(s): I10 - Essential (primary) hypertension Status: Acute (6) Morbid obesity: Code(s): E66.01 - Morbid (severe) obesity due to excess calories Status: Acute (7) Cholelithiasis: Code(s): K80.20 - Calculus of gallbladder without cholecystitis without obstruction Status: Acute GI Consult Note Consult date/time: 12/16/21 14:48 Reason for consult: pancreatitis HPI: Deepti De La Fuente is a 26 year old female with history of HTN and obesity who came to ER with new onset of epigastric abdominal pain with nausea and vomiting on 12/13. This started after she had something to eat. She came to ER, blood work consistent with pancreatitis and CT scan reviewed and showed severe acute necrotizing pancreatitis, no ductal biliary dilation. She had only minimal elevated liver enzymes but repeat labs showed normalization. She was to be transferred to tertiary hospital but no bed available, finally she was admitted to the hospital (she was in the ER for the first 2 days). In the meantime she has been feeling better with less nausea and overall improvement of pain. Repeat CT scan no significant interval change in acute necrotic pancreatitis with radionecrosis at the body of the pancreas and surrounding nonorganized appearing acute peripancreatic fluid collection. Lipase is trending down and tolerating liquid diet. TG level normal, denies alcohol abuse and never had pancreatitis. Ultrasound showed cholelithiasis. Review of Systems Review of Systems: All systems reviewed & are unremarkable except as noted in HPI and below (HPI) Constitutional: Constitutional: Reports as per HPI, Denies chills and Denies fever(s) Eyes: Eyes: Reports no additional eye complaints ENT: Reports Normal hearing present and Denies dizziness Cardiovascular: Cardiovascular: Reports no additional cardiovascular complaints, Denies chest pain and Denies irregular heart rhythm Respiratory: Respiratory: Reports no additional respiratory complaints Gastrointestinal: Gastrointestinal: Reports no additional gastrointestinal complaints Genitourinary: Genitourinary: Denies hematuria Musculoskeletal: Musculoskeletal: Denies back pain Integumentary/Breasts: Skin/Breast: Reports system reviewed and no additional complaints, except as docu Neurologic: Reports Normal hearing present, Denies Abnormal speech present, Denies confusion and Denies dizziness Psychiatric: Psychiatric: Reports no additional psychiatric complaints and Denies confusion Endocrine: Endocrine: Reports no additional endocrine complaints Hematologic/Lymphatic: Hematologic/Lymphatic: Denies easy bleeding and Denies easy bruising Allergic/Immunologic: Allergic/Immunologic: Reports no additional allergic/immunologic complaints [facility] [place] Past Medical History Medical History (Updated 12/16/21 @ 14:56 by Edpriya
[2021-12-16] MEDS: SALINE LOCK FLUSH 20 ML IV PUSH (17:13)
[2021-12-16 20:17] LABS: Alanine Aminotransferase 23 U/L (6-35); Albumin Level 3.5 g/dL (3.5-5.1); Alkaline Phosphatase 91 U/L (38-126); Anion Gap 3 mmol/L (8-16); Aspartate Amino Transferase 31 U/L (14-36); Bilirubin,Total 0.9 mg/dL (0.2-1.3); Blood Urea Nitrogen 3 mg/dL (7-17); Calcium 7.9 mg/dL (8.4-10.2); Carbon Dioxide 30 mmol/L (22-30); Chloride 101 mmol/L (98-107); Estimated CRCL calculation 131 ml/min; Estimated Glomerular Filt Rate > 60; Glucose 159 mg/dL (65-110); Potassium 2.8 mmol/L (3.4-5.0); Sodium 134 mmol/L (137-145)
[2021-12-16] MEDS: SALINE LOCK FLUSH 10 ML IV PUSH (20:26)
--- NOTE | 2021-12-16 20:36 | PC.NURSE ---
2030: Nurse Assessor called Thelma Plummer to report critical lab. No answer. Will call again in 15 minutes.
[2021-12-16] MEDS: KCL 40 MEQ/WATER 100 ML 100 ML 25 ML IVPB (22:08)
[2021-12-17] VITALS (11 sets, daily range): BP systolic 111–142; BP diastolic 57–89; PULSE 94–122; RESP 16–18; TEMP 36.2–38; O2SAT 96–100
[2021-12-17] MEDS: SALINE LOCK FLUSH 10 ML IV PUSH ×3 (05:56→20:30)
[2021-12-17 06:12] LABS: Basophils Absolute Auto 0.1 K/mm3 (0.0-0.1); Basophils Percent Auto 0.4 % (0.2-1.2); Eosinophils Absolute Auto 0.1 K/mm3 (0-0.3); Eosinophils Percent Auto 0.6 % (0-4.4); Hematocrit 28.8 % (37.0-47.0); Hemoglobin 9.3 g/dL (12.0-15.0); Immature Granulocyte Absolute 0.55 K/mm3 (0.00-0.031); Lymphocytes Absolute Auto 1.53 K/mm3 (0.9-3.2); Lymphocytes Percent Auto 11.2 % (18.3-44.2); Mean Corpuscular HGB Conc 32.3 g/dl (32-36); Mean Corpuscular Hemoglobin 26.1 pg (26-34); Mean Corpuscular Volume 80.9 fl (80-100); Monocytes Absolute Auto 1.7 K/mm3 (0.1-0.6); Monocytes Percent Auto 12.5 % (2.6-8.5); Neutrophils Absolute Auto 9.7 K/mm3 (1.3-6.7); Neutrophils Percent Auto 71.3 % (45.5-73.1); Platelet Count Result 276 k/mm3 (150-375); Red Blood Count 3.56 M/mm3 (4.2-5.4); White Blood Count 13.6 K/mm3 (4.5-10.0)
[2021-12-17 06:34] LABS: Alanine Aminotransferase 21 U/L (6-35); Albumin Level 3.2 g/dL (3.5-5.1); Alkaline Phosphatase 72 U/L (38-126); Anion Gap 2 mmol/L (8-16); Aspartate Amino Transferase 33 U/L (14-36); Bilirubin,Total 0.8 mg/dL (0.2-1.3); Blood Urea Nitrogen 2 mg/dL (7-17); Calcium 7.6 mg/dL (8.4-10.2); Carbon Dioxide 28 mmol/L (22-30); Chloride 103 mmol/L (98-107); Estimated CRCL calculation 177 ml/min; Estimated Glomerular Filt Rate > 60; Glucose 156 mg/dL (65-110); Lipase 113 U/L (23-300); Potassium 4.3 mmol/L (3.4-5.0); Sodium 133 mmol/L (137-145)
[2021-12-17] MEDS: PANTOPRAZOLE SODIUM IV 40 MG VIAL IV PUSH ×2 (08:31→20:29)
--- NOTE | 2021-12-17 09:30 | PM.PNGS ---
Progress Note: A&P Assessment and Plan (1) Acute necrotizing pancreatitis: Code(s): K85.91 - Acute pancreatitis with uninfected necrosis, unspecified Status: Acute Assessment and Plan: improving, WBC trending down, lipase normal, dave clears, will ADAT (2) Cholelithiasis: Code(s): K80.20 - Calculus of gallbladder without cholecystitis without obstruction Status: Acute Assessment and Plan: will need interval ze as outpt given severity of pancreatitis Subjective Subjective Date/Time Seen: 12/17/21 09:30 feels pretty good, dave clears, still c some diarrhea, minimal abd discomfort Review of Systems Review of Systems: All systems reviewed & are unremarkable except as noted in HPI and below Exam Const: General: cooperative, comfortable and no acute distress Resp: Auscultation: clear to auscultation bilaterally Cardio: Rate: regular rate Rhythm: regular rhythm GI: Inspection: normal to inspection and non-distended GI Palp: Yes abdominal tenderness, Yes Soft to palpation, Yes Tenderness to palpation present (GI), No Guarding due to palpation present (GI) and No Rigid due to palpation Objective Data Vital Signs Vital Signs: Vital Signs - 24 hr 12/16/21 12:00 12/16/21 12:00 12/16/21 16:00 Temperature 37.4 C Pulse Rate 103 H 104 H 114 H Respiratory Rate 30 H Blood Pressure 148/89 H Pulse Oximetry 93 Oxygen Delivery 12/16/21 16:00 12/16/21 19:43 12/16/21 20:00 Temperature 37.7 C H 36.7 C Pulse Rate 102 H 110 H Respiratory Rate 34 H 18 Blood Pressure 150/84 H 141/87 H Pulse Oximetry 99 98 Oxygen Delivery Room Air 12/16/21 23:42 12/17/21 03:46 12/16/21 20:00 Temperature 36.7 C 36.6 C Pulse Rate 100 101 H 109 H Respiratory Rate 18 18 Blood Pressure 138/64 129/66 Pulse Oximetry 96 99 Oxygen Delivery 12/17/21 00:00 12/17/21 04:00 12/17/21 08:00 Temperature Pulse Rate 98 102 H 96 Respiratory Rate Blood Pressure Pulse Oximetry Oxygen Delivery Intake/Output Intake/Output: Intake & Output 12/14/21 12/15/21 12/16/21 12/17/21 23:59 23:59 23:59 23:59 Intake Total 2300 2500 4050 400 Balance 2300 2500 4050 400 Meds/Results Medications: Active Medications Generic Name Dose Route Start Last Admin Trade Name Freq PRN Reason Stop Dose Admin Hydralazine HCl 10 mg 12/15/21 13:15 Hydralazine Hcl 20 Mg/Ml Vial IV PUSH Q8H PRN Blood Pressure - High Piperacillin/Tazobactam/Dextrose 3.375 gm in 50 mls @ 100 mls/hr 12/15/21 17:00 12/17/21 05:55 Zosyn 3.375 Gm/D5w 50ml Pm IVPB 100 mls/hr Q6HR KIARA Administration Azithromycin 500 mg in 250 mls @ 250 mls/hr 12/16/21 09:00 12/17/21 08:31 Zithromax IVPB 250 mls/hr Q24H KIARA Administration Potassium Chloride/Sodium Chloride 1,000 mls @ 100 mls/hr 12/15/21 19:00 12/17/21 02:00 Kcl 40 Meq/0.45% Ns IV CONT 100 mls/hr .Q10H KIARA Infusion Acetaminophen 1,000 mg in 100 mls @ 400 mls/hr 12/16/21 21:05 12/16/21 21:35 Ofirmev 1,000 Mg Ivpb IVPB 12/17/21 21:04 Infused Q6H PRN Infusion Pain Rated 1-3 Morphine Sulfate 4 mg 12/13/21 18:54 12/16/21 01:59 Morphine Sulfate (*Crx) 4 Mg/Ml Inj IV PUSH 4 mg Q4H PRN Administration Pain Rated 7-10 Morphine Sulfate 2 mg 12/15/21 18:16 12/15/21 18:43 Morphine Sulfate (*Crx) 2 Mg/Ml Inj IV PUSH 2 mg Q4H PRN Administration Pain Rated 4-6 Ondansetron HCl 4 mg 12/13/21 20:18 12/15/21 11:17 Ondansetron Inj 4 Mg/2 Ml Vial IV PUSH 4 mg Q4H PRN Administration Nausea Pantoprazole Sodium 40 mg 12/16/21 09:00 12/17/21 08:31 Pantoprazole Sodium Iv 40 Mg Vial IV PUSH 40 mg Q12HR KIARA Administration Sodium Chloride 10 ml 12/16/21 14:00 12/17/21 05:56 Saline Lock Flush IV PUSH 10 ml Q8HR KIARA Administration Sodium Chloride 10 ml 12/16/21 08:12 Saline Lock Flush IV PUSH PRN PRN Flush Sodium Chloride 20 ml
[2021-12-17] MEDS: KCL 40 MEQ/0.45% NS 1,000 ML 100 ML IV CONT ×2 (09:32→20:28)
--- NOTE | 2021-12-17 10:45 | PM.IMPN ---
Progress Note: A&P Assessment and Plan (1) Acute necrotizing pancreatitis: Code(s): K85.91 - Acute pancreatitis with uninfected necrosis, unspecified Status: Acute Assessment and Plan: CT the abdomen pelvis showed necrotizing pancreatitis at the body of the pancreas Continue Zosyn day 3 Lipase is 113 today was 1353 upon admission Diet advanced as tolerated KCL in 0.45NS at 100ml/hr an hour, probably can stop if eating well Pain medications morphine 4 mg IV Q 4 p.r.n. Zofran 4 mg IV Q [address] of abdomen and pelvis showed no changes 12/14/21 Ultrasound RUQ found cholelithiasis Protonix ordered BID [facility] accepted patient awaiting bed placement (2) Hypertension: Code(s): I10 - Essential (primary) hypertension Status: Acute Assessment and Plan: Current blood pressure 142/89 Hold hydrochlorothiazide which will need to be stopped as this could be the reason for the pancreatitis Hydralazine p.r.n. with parameters Trend blood pressure Adjust therapy as indicated Start amlodipine 5mg PO (3) Anemia: Code(s): D64.9 - Anemia, unspecified Status: Acute Assessment and Plan: H/H 9.3/28.8 Anemia Labs <10, TIBC 251, % Sat 4, Transferrin 138, Ferritin 285, Folate 9.4, B12 pending Start ferrous sulfate 324mg BID Consider supplementation if indicated Trend H/H Transfuse as indicated (4) Sepsis: Code(s): A41.9 - Sepsis, unspecified organism Status: Acute Assessment and Plan: Sepsis criteria may leukocytosis of white count 20.1, fever of 101.6, respirations in the 30s, lactic acid 2.3 Source of infection is necrotizing pancreatitis Blood cultures NGTD Continue Zosyn Trend vital signs Trend labs Seems to be resolving WBC trending down and is current 13.6 (5) Pneumonia: Code(s): J18.9 - Pneumonia, unspecified organism Status: Acute Assessment and Plan: CTA shows PNA Continue azithromycin WBC trending down to 13.6 Sputum culture ordered Chest xray bibasilar airspace opacities consistent with atelectasis vs PNA (6) Tachycardia: Code(s): R00.0 - Tachycardia, unspecified Status: Acute Assessment and Plan: HR is low 109 Fluid were given in the ed 40KCL/0.45%NS continued at 100ml/hr lunchroom monitor Trend HR Probably related to Dehydration (7) Diarrhea: Code(s): R19.7 - Diarrhea, unspecified Status: Acute Assessment and Plan: Complaining of frequent diarrhea Add Imodium once Time Spent With Patient Time with patient: Greater than 35 minutes Subjective Date/time seen: 12/17/21 10:45 Interval history: 12/17/21 1045 Patient states that she is doing well today. She does still have a stomach ache which he said is in the left lower quadrant which she also stated that was swollen. She is able to eat foods and she did tolerate solid food yesterday. She has been walking down the hallway and up in the chair. She still having on some diarrhea and the Imodium didn't help. We talked about her blood pressure and her iron deficiency anemia. Will start patient on amlodipine and ferrous sulfate. 12/16/21 0745 Patient states that she is doing okay today. She does have some pain in her left side. She does state that she is feeling better. Her biggest complaint is diarrhea. Probably the reason for her low potassium. Potassium is 2.7 again today. Fluids have K added at this point. Lipase is lower today 120. She is tolerating ice chips. WBC is 16.2 which is decreasing. She denies chest pain, shortness of breath, nausea, vomiting. Did discuss the case with Dr. Monzon. Plan is to order an ultrasound. Since her lipase is decreasing she is being started on clear liquids. 12/15/21? 10:00 Patient is a 26-year-old female with a past medical history of hypertension who presented
--- NOTE | 2021-12-17 10:45 | P.PNIM_ITS ---
Progress Note: A&P Assessment and Plan (1) Acute necrotizing pancreatitis: Code(s): K85.91 - Acute pancreatitis with uninfected necrosis, unspecified Status: Acute Assessment and Plan: * CT the abdomen pelvis showed necrotizing pancreatitis at the body of the pancreas * Continue Zosyn day 3 * Lipase is 113 today was 1353 upon admission * Diet advanced as tolerated * KCL in 0.45NS at 100ml/hr an hour, probably can stop if eating well * Pain medications morphine 4 mg IV Q 4 p.r.n. * Zofran 4 mg IV Q 4 p.r.n. * Repeat CT of abdomen and pelvis showed no changes 12/14/21 * Ultrasound RUQ found cholelithiasis * Protonix ordered BID * [facility] accepted patient awaiting bed placement (2) Hypertension: Code(s): I10 - Essential (primary) hypertension Status: Acute Assessment and Plan: * Current blood pressure 142/89 * Hold hydrochlorothiazide which will need to be stopped as this could be the reason for the pancreatitis * Hydralazine p.r.n. with parameters * Trend blood pressure * Adjust therapy as indicated * Start amlodipine 5mg PO (3) Anemia: Code(s): D64.9 - Anemia, unspecified Status: Acute Assessment and Plan: * H/H 9.3/28.8 * Anemia Labs <10, TIBC 251, % Sat 4, Transferrin 138, Ferritin 285, Folate 9.4, B12 pending * Start ferrous sulfate 324mg BID * Consider supplementation if indicated * Trend H/H * Transfuse as indicated (4) Sepsis: Code(s): A41.9 - Sepsis, unspecified organism Status: Acute Assessment and Plan: * Sepsis criteria may leukocytosis of white count 20.1, fever of 101.6, respirations in the 30s, lactic acid 2.3 * Source of infection is necrotizing pancreatitis * Blood cultures NGTD * Continue Zosyn * Trend vital signs * Trend labs * Seems to be resolving WBC trending down and is current 13.6 (5) Pneumonia: Code(s): J18.9 - Pneumonia, unspecified organism Status: Acute Assessment and Plan: * CTA shows PNA * Continue azithromycin * WBC trending down to 13.6 * Sputum culture ordered * Chest xray bibasilar airspace opacities consistent with atelectasis vs PNA (6) Tachycardia: Code(s): R00.0 - Tachycardia, unspecified Status: Acute Assessment and Plan: * HR is low 109 * Fluid were given in the ed * 40KCL/0.45%NS continued at 100ml/hr * residential monitor * Trend HR * Probably related to Dehydration (7) Diarrhea: Code(s): R19.7 - Diarrhea, unspecified Status: Acute Assessment and Plan: * Complaining of frequent diarrhea * Add Imodium once Time Spent With Patient Time with patient: Greater than 35 minutes Subjective Date/time seen: 12/17/21 10:45 Interval history: 12/17/21 1045 Patient states that she is doing well today. She does still have a stomach ache which he said is in the left lower quadrant which she also stated that was swollen. She is able to eat foods and she did tolerate solid food yesterday. She has been walking down the hallway and up in the chair. She still having on some diarrhea and the Imodium didn't help. We talked about her blood pressure and her iron deficiency anemia. Will start patient on amlodipine and ferrous sulfate. 12/16/21 [id number] Patient states that she is doing okay today. She does have some pain in her left side.
[2021-12-17] MEDS: amLODIPine BESYLATE 5 MG TABLET PO (12:36)
[2021-12-17] MEDS: LOPERAMIDE HCL 2 MG CAPSULE 4 MG PO (12:36)
--- NOTE | 2021-12-17 17:01 | WPDGIPROGNO ---
Progress Note: A&P Assessment and Plan (1) Acute necrotizing pancreatitis: Code(s): K85.91 - Acute pancreatitis with uninfected necrosis, unspecified Status: Acute Assessment and Plan: improving with medical treatment and tolerating diet hopefully home soon (2) Nausea & vomiting: Qualifiers: Vomiting type: unspecified Qualified Code(s): R11.2 - Nausea with vomiting, unspecified Code(s): R11.2 - Nausea with vomiting, unspecified Status: Acute Assessment and Plan: resolved advancing to low fat diet (3) Hypertension: Code(s): I10 - Essential (primary) hypertension Status: Acute Assessment and Plan: on med (4) Cholelithiasis: Code(s): K80.20 - Calculus of gallbladder without cholecystitis without obstruction Status: Acute Assessment and Plan: will need interval cholecystectomy as outpatient once pancreatitis resolves surgery on board (5) Morbid obesity: Code(s): E66.01 - Morbid (severe) obesity due to excess calories Status: Acute (6) Leukocytosis (leucocytosis): Qualifiers: Leukocytosis type: unspecified Qualified Code(s): D72.829 - Elevated white blood cell count, unspecified Code(s): D72.829 - Elevated white blood cell count, unspecified Status: Acute Subjective Date/time seen: 12/17/21 17:01 Interval history: feeling much netter and tolerating diet Review of Systems Review of Systems: All systems reviewed & are unremarkable except as noted in HPI and below Exam Const: General: comfortable, no acute distress and awake Nutritional Appearance: obese morbidly obese Orientation/consciousness: patient oriented x3 HENMT: General nose exam: Normal nares present Eyes: General: appearance normal, both eyes and all related structures Neck: Neck: supple Resp: Effort & Inspection: normal respiratory effort Auscultation: clear to auscultation bilaterally Cardio: Rhythm: regular rhythm GI: Inspection: Pannus present and obesity GI Palp: Yes Soft to palpation, No Guarding due to palpation present (GI) and No Rebound tenderness present Auscultation: normal bowel sounds Skin: General skin exam: normal color Neuro: General: moves all extremities and no focal motor deficits Extrem: General: normal to inspection Psych: Mental Status: mental status grossly normal Thought process: Normal thought process present Objective Data Vital Signs Vital Signs: Vital Signs - 24 hr 12/16/21 19:43 07/06/22 20:00 12/16/21 23:42 Temperature 98.1 F 98.1 F Pulse Rate 110 H 100 Respiratory Rate 18 18 Blood Pressure 141/87 H 138/64 Pulse Oximetry 98 96 Oxygen Delivery Room Air 12/17/21 03:46 12/16/21 20:00 12/17/21 00:00 Temperature 97.9 F Pulse Rate 101 H 109 H 98 Respiratory Rate 18 Blood Pressure 129/66 Pulse Oximetry 99 Oxygen Delivery 12/17/21 04:00 12/17/21 08:00 12/17/21 10:00 Temperature 97.2 F L Pulse Rate 102 H 96 109 H Respiratory Rate 16 Blood Pressure 142/89 H Pulse Oximetry 99 Oxygen Delivery 12/17/21 11:16 12/17/21 12:00 12/17/21 14:30 Temperature 98.7 F Pulse Rate 101 H 99 Respiratory Rate 16 Blood Pressure 128/67 Pulse Oximetry 96 100 Oxygen Delivery Room Air 12/17/21 16:00 Temperature Pulse Rate 94 Respiratory Rate Blood Pressure Pulse Oximetry Oxygen Delivery Intake/Output Intake/Output: Intake & Output 12/14/21 12/15/21 12/16/21 12/17/21 23:59 23:59 23:59 23:59 Intake Total 2300 2500 4050 1850 Balance 2300 2500 4050 1850 Meds/Results Medications: Active Medications Generic Name Dose Route Start Last Admin Trade Name Freq PRN Reason Stop Dose Admin Amlodipine Besylate 5 mg 12/17/21 11:45 12/17/21 12:36 Amlodipine Besylate 5 Mg Tablet [facility] [place] Ferrous Sulfate 324 mg 12/17/21 17:00 Ferrous Sulfate 324 Mg Tablet PO BIDWM [facility]
[2021-12-17] MEDS: FERROUS SULFATE 324 MG TABLET PO (17:07)
[2021-12-17] MEDS: guaiFENesin/DEXTROMETHORPHAN 10 ML UDC PO (17:07)
[2021-12-17] MEDS: ACETAMINOPHEN 325 MG TABLET 650 MG PO (21:59)
[2021-12-18] MEDS: BENZOCAINE/MENTHOL (*BKC) 18 EA LOZENGE 1 LOZENGE PO (00:59)
[2021-12-18 04:00] VITALS: BP 106/60; PULSE 107; RESP 16; TEMP 37.7; O2SAT 99
[2021-12-18] MEDS: SALINE LOCK FLUSH 10 ML IV PUSH (06:22)
[2021-12-18] MEDS: SALINE LOCK FLUSH 20 ML IV PUSH (06:22)
[2021-12-18] MEDS: KCL 40 MEQ/0.45% NS 1,000 ML 100 ML IV CONT (06:23)
[2021-12-18 06:47] LABS: Basophils Absolute Auto 0.1 K/mm3 (0.0-0.1); Basophils Percent Auto 0.4 % (0.2-1.2); Eosinophils Absolute Auto 0.2 K/mm3 (0-0.3); Eosinophils Percent Auto 1.4 % (0-4.4); Hematocrit 30.3 % (37.0-47.0); Hemoglobin 9.4 g/dL (12.0-15.0); Immature Granulocyte Absolute 1.08 K/mm3 (0.00-0.031); Lymphocytes Absolute Auto 1.86 K/mm3 (0.9-3.2); Lymphocytes Percent Auto 13.7 % (18.3-44.2); Mean Corpuscular Hemoglobin 25.6 pg (26-34); Mean Corpuscular Volume 82.6 fl (80-100); Mean Platelet Volume 10.2 fl (7.4-10.4); Monocytes Absolute Auto 1.5 K/mm3 (0.1-0.6); Monocytes Percent Auto 10.9 % (2.6-8.5); Neutrophils Absolute Auto 8.9 K/mm3 (1.3-6.7); Neutrophils Percent Auto 65.6 % (45.5-73.1); Platelet Count Result 302 k/mm3 (150-375); Red Blood Count 3.67 M/mm3 (4.2-5.4); Red Cell Distribution Width 14.6 % (11.5-14.5); White Blood Count 13.5 K/mm3 (4.5-10.0)
[2021-12-18 08:00] VITALS: BP 115/69; PULSE 107; RESP 18; TEMP 37.9; O2SAT 99
[2021-12-18 08:42] VITALS: TEMP 37.9
[2021-12-18] MEDS: PANTOPRAZOLE SODIUM IV 40 MG VIAL IV PUSH (08:42)
[2021-12-18] MEDS: ACETAMINOPHEN 325 MG TABLET 650 MG PO (08:42)
[2021-12-18] MEDS: FERROUS SULFATE 324 MG TABLET PO (08:42)
[2021-12-18] MEDS: amLODIPine BESYLATE 5 MG TABLET PO (08:42)
[2021-12-18] MEDS: guaiFENesin/DEXTROMETHORPHAN 10 ML UDC PO (08:42)
[2021-12-18] MEDS: LACTATED RINGERS 1,000 ML 999 ML IV CONT (09:39)
--- NOTE | 2021-12-18 10:00 | P.DS_ITS ---
DS: Admitting Diagnosis Discharge Date 12/18/21 1000 Admitting Diagnosis Necrotizing pancreatitis DS: Discharge Diagnosis Discharge Diagnosis (1) Acute necrotizing pancreatitis: Code(s): K85.91 - Acute pancreatitis with uninfected necrosis, unspecified Status: Acute Assessment and Plan: * CT the abdomen pelvis showed necrotizing pancreatitis at the body of the pancreas * Continue Zosyn day 3 * Lipase is 113 today was 1353 upon admission * Diet advanced as tolerated * KCL in 0.45NS at 100ml/hr an hour, probably can stop if eating well * Pain medications morphine 4 mg IV Q 4 p.r.n. * Zofran 4 mg IV Q 4 p.r.n. * Repeat CT of abdomen and pelvis showed no changes 12/14/21 * Ultrasound RUQ found cholelithiasis * Protonix ordered BID * [facility] accepted patient awaiting bed placement (2) Hypertension: Code(s): I10 - Essential (primary) hypertension Status: Acute Assessment and Plan: * Current blood pressure 142/89 * Hold hydrochlorothiazide which will need to be stopped as this could be the reason for the pancreatitis * Hydralazine p.r.n. with parameters * Trend blood pressure * Adjust therapy as indicated * Start amlodipine 5mg PO (3) Anemia: Code(s): D64.9 - Anemia, unspecified Status: Acute Assessment and Plan: * H/H 9.3/28.8 * Anemia Labs <10, TIBC 251, % Sat 4, Transferrin 138, Ferritin 285, Folate 9.4, B12 pending * Start ferrous sulfate 324mg BID * Consider supplementation if indicated * Trend H/H * Transfuse as indicated (4) Sepsis: Code(s): A41.9 - Sepsis, unspecified organism Status: Acute Assessment and Plan: * Sepsis criteria may leukocytosis of white count 20.1, fever of 101.6, respirations in the 30s, lactic acid 2.3 * Source of infection is necrotizing pancreatitis * Blood cultures NGTD * Continue Zosyn * Trend vital signs * Trend labs * Seems to be resolving WBC trending down and is current 13.6 (5) Pneumonia: Code(s): J18.9 - Pneumonia, unspecified organism Status: Acute Assessment and Plan: * CTA shows PNA * Continue azithromycin * WBC trending down to 13.6 * Sputum culture ordered * Chest xray bibasilar airspace opacities consistent with atelectasis vs PNA (6) Tachycardia: Code(s): R00.0 - Tachycardia, unspecified Status: Acute Assessment and Plan: * HR is low 109 * Fluid were given in the ed * 40KCL/0.45%NS continued at 100ml/hr * phototypesetting equipment monitor * Trend HR * Probably related to Dehydration (7) Diarrhea: Code(s): R19.7 - Diarrhea, unspecified Status: Acute Assessment and Plan: * Complaining of frequent diarrhea * Add Imodium once DS: Summary Hospital Course Hospital Course: Patient is a 26-year-old female with past medical history hypertension who presented to the ED with abdominal pain. Patient been having abdominal pain prior 2 days. When she came in CT of the abdomen and pelvis showed that she had necrotizing pancreatitis. Patient was started on IV fluids. White count was also elevated. Patient did report to urgent care however she was sent to the ED after they found her heart rate to be in the 150s. Lipase was also noted to be elevated at 13 53. Patient was started on IV Zosyn internal surgery was consulted. Right upper quadrant ultrasound showed chol
--- NOTE | 2021-12-18 10:00 | PM.DS ---
DS: Admitting Diagnosis Discharge Date 12/18/21 1000 Admitting Diagnosis Necrotizing pancreatitis DS: Discharge Diagnosis Discharge Diagnosis (1) Acute necrotizing pancreatitis: Code(s): K85.91 - Acute pancreatitis with uninfected necrosis, unspecified Status: Acute Assessment and Plan: CT the abdomen pelvis showed necrotizing pancreatitis at the body of the pancreas Continue Zosyn day 3 Lipase is 113 today was 1353 upon admission Diet advanced as tolerated KCL in 0.45NS at 100ml/hr an hour, probably can stop if eating well Pain medications morphine 4 mg IV Q 4 p.r.n. Zofran 4 mg IV Q [address] of abdomen and pelvis showed no changes 12/14/21 Ultrasound RUQ found cholelithiasis Protonix ordered BID [facility] accepted patient awaiting bed placement (2) Hypertension: Code(s): I10 - Essential (primary) hypertension Status: Acute Assessment and Plan: Current blood pressure 142/89 Hold hydrochlorothiazide which will need to be stopped as this could be the reason for the pancreatitis Hydralazine p.r.n. with parameters Trend blood pressure Adjust therapy as indicated Start amlodipine 5mg PO (3) Anemia: Code(s): D64.9 - Anemia, unspecified Status: Acute Assessment and Plan: H/H 9.3/28.8 Anemia Labs <10, TIBC 251, % Sat 4, Transferrin 138, Ferritin 285, Folate 9.4, B12 pending Start ferrous sulfate 324mg BID Consider supplementation if indicated Trend H/H Transfuse as indicated (4) Sepsis: Code(s): A41.9 - Sepsis, unspecified organism Status: Acute Assessment and Plan: Sepsis criteria may leukocytosis of white count 20.1, fever of 101.6, respirations in the 30s, lactic acid 2.3 Source of infection is necrotizing pancreatitis Blood cultures NGTD Continue Zosyn Trend vital signs Trend labs Seems to be resolving WBC trending down and is current 13.6 (5) Pneumonia: Code(s): J18.9 - Pneumonia, unspecified organism Status: Acute Assessment and Plan: CTA shows PNA Continue azithromycin WBC trending down to 13.6 Sputum culture ordered Chest xray bibasilar airspace opacities consistent with atelectasis vs PNA (6) Tachycardia: Code(s): R00.0 - Tachycardia, unspecified Status: Acute Assessment and Plan: HR is low 109 Fluid were given in the ed 40KCL/0.45%NS continued at 100ml/hr district wire chief Trend HR Probably related to Dehydration (7) Diarrhea: Code(s): R19.7 - Diarrhea, unspecified Status: Acute Assessment and Plan: Complaining of frequent diarrhea Add Imodium once DS: Summary Hospital Course Hospital Course: Patient is a 26-year-old female with past medical history hypertension who presented to the ED with abdominal pain. Patient been having abdominal pain prior 2 days. When she came in CT of the abdomen and pelvis showed that she had necrotizing pancreatitis. Patient was started on IV fluids. White count was also elevated. Patient did report to urgent care however she was sent to the ED after they found her heart rate to be in the 150s. Lipase was also noted to be elevated at 13 53. Patient was started on IV Zosyn internal surgery was consulted. Right upper quadrant ultrasound showed cholelithiasis GI was consulted for further evaluation. CT scan was also repeated and showed no changes. Labs have been on trending currently white blood cell count is 13.5. Anemia labs were also drawn and showed the patient was iron deficient. Ferrous sulfate was started. H&H was also in trend is currently 9.4/30.3. Patient was noted to have mild fever. IV fluids were given and were maintained to keep patient hydrated. Patient was also noted to have many bouts of diarrhea. Protonix was also ordered. Patient did take hydrochlorothiazide for hypertension however that was disc
[2021-12-18 10:04] LABS: Appearance Urine Clear (Clear); Bilirubin Urine Negative (Negative); Blood Urine Negative (Negative); Glucose Urine UA Negative (Negative); Ketones Urine Negative (Negative); Leukocyte Esterase Ur Negative LEU/UL (Negative); Nitrate Urine Negative (Negative); Protein Urine Negative (Negative); Specific Grav Ur 1.015 (1.001-1.035); Urobilinogen Urine 0.2 mg/dL (<2.0)
[2021-12-18 10:09] LABS: Add Urine Microscopic? NO; Color Urine Light Yellow (Yellow)
--- NOTE | 2021-12-18 10:30 | PM.PNGS ---
Progress Note: A&P Assessment and Plan (1) Acute necrotizing pancreatitis: Code(s): K85.91 - Acute pancreatitis with uninfected necrosis, unspecified Status: Acute Assessment and Plan: improved, enzymes normalized, exam benign, dave diet, ok to dc home from surgical standpoint (2) Cholelithiasis: Code(s): K80.20 - Calculus of gallbladder without cholecystitis without obstruction Status: Acute Assessment and Plan: plan for interval cholecystectomy as outpt, pt to f/u c Dr. Monzon in next few wks (3) Morbid obesity: Code(s): E66.01 - Morbid (severe) obesity due to excess calories Status: Acute Assessment and Plan: dietary and lifestyle modifications Subjective Subjective Date/Time Seen: 12/18/21 10:30 feels good, pain resolved, dave low fat diet Review of Systems Review of Systems: All systems reviewed & are unremarkable except as noted in HPI and below Exam Const: General: cooperative, comfortable and no acute distress Resp: Auscultation: clear to auscultation bilaterally Cardio: Rate: regular rate Rhythm: regular rhythm GI: Inspection: normal to inspection and non-distended GI Palp: No abdominal tenderness, Yes Soft to palpation and No Tenderness to palpation present (GI) Objective Data Vital Signs Vital Signs: Vital Signs - 24 hr 12/17/21 11:16 12/17/21 12:00 12/17/21 14:30 Temperature 37.1 C Pulse Rate 101 H 99 Respiratory Rate 16 Blood Pressure 128/67 Pulse Oximetry 96 100 Oxygen Delivery Room Air 12/17/21 16:00 12/17/21 20:00 12/17/21 23:38 Temperature 37.4 C 38.0 C H Pulse Rate 94 114 H 122 H Respiratory Rate 16 16 Blood Pressure 114/64 111/57 L Pulse Oximetry 98 96 Oxygen Delivery 12/17/21 20:00 12/18/21 04:00 12/18/21 08:00 Temperature 37.7 C H 37.9 C H Pulse Rate 107 H 107 H Respiratory Rate 16 18 Blood Pressure 106/60 115/69 Pulse Oximetry 99 99 Oxygen Delivery Room Air 12/18/21 08:42 Temperature 37.9 C H Pulse Rate Respiratory Rate Blood Pressure Pulse Oximetry Oxygen Delivery Intake/Output Intake/Output: Intake & Output 12/15/21 12/16/21 12/17/21 12/18/21 23:59 23:59 23:59 23:59 Intake Total 2500 4050 3595 1600 Balance 2500 4050 3595 1600 Meds/Results Medications: Active Medications Generic Name Dose Route Start Last Admin Trade Name Freq PRN Reason Stop Dose Admin Acetaminophen 650 mg 12/17/21 21:50 12/18/21 08:42 Acetaminophen 325 Mg Tablet PO 650 mg Q6H PRN Administration Mild Pain (1-3) or Fever Amlodipine Besylate 5 mg 12/17/21 11:45 12/18/21 08:42 Amlodipine Besylate 5 Mg Tablet PO 5 mg QAM KIARA Administration Benzocaine 1 lozenge 12/17/21 21:57 12/18/21 00:59 Benzocaine/Menthol (*Bkc) 18 Ea Lozenge PO 1 lozenge PRN PRN Administration Sore Throat Ferrous Sulfate 324 mg 12/17/21 17:00 12/18/21 08:42 Ferrous Sulfate 324 Mg Tablet PO 324 mg BIDWM KIARA Administration Guaifenesin/Dextromethorphan 10 ml 12/17/21 17:00 12/18/21 08:42 Guaifenesin/Dextromethorphan 10 Ml Udc PO 10 ml Q4H PRN Administration Cough Hydralazine HCl 10 mg 12/15/21 13:15 Hydralazine Hcl 20 Mg/Ml Vial IV PUSH Q8H PRN Blood Pressure - High Piperacillin/Tazobactam/Dextrose 3.375 gm in 50 mls @ 100 mls/hr 12/15/21 17:00 12/18/21 07:05 Zosyn 3.375 Gm/D5w 50ml Pm IVPB Infused Q6HR KIARA Infusion Azithromycin 500 mg in 250 mls @ 250 mls/hr 12/16/21 09:00 12/18/21 08:53 Zithromax IVPB 250 mls/hr Q24H KIARA Administration Potassium Chloride/Sodium Chloride 1,000 mls @ 100 mls/hr 12/15/21 19:00 12/18/21 06:23 Kcl 40 Meq/0.45% Ns IV CONT 100 mls/hr .Q10H KIARA Administration Morphine Sulfate 4 mg 12/13/21 18:54 12/16/21 01:59 Morphine Sulfate (*Crx) 4 Mg/Ml Inj IV PUSH 4 mg Q4H PRN Administration Pain Rated 7-10 Morphine Sulfate 2 mg 12/15/21 18:16 12/15/21 18:4
[2021-12-18 11:25] VITALS: BP 113/71; PULSE 92; RESP 18; TEMP 36.1; O2SAT 100
[2021-12-18 12:23] VITALS: BP 113/71; PULSE 92; RESP 18; TEMP 36.1; O2SAT 100
--- NOTE | 2021-12-18 12:50 | PC.NURSE ---
[employer] INFORMATION DELIVERY ANALYST making rounds will discharge pt, he is getting orders together now
== END 2021-12-18 14:11 | disposition home or self-care (01) | DRG 720 ==
LOC: ANHED 12-15 11:05 → ANH3MEDSUR 12-15 17:12 → ANHIMU 12-21 13:01
PROVIDERS: Emergency Medicine; Nurse Practitioner Family; Admitting Provider Chiropractor; Emergency Provider Emergency Medicine; PCP Nurse Practitioner Family; Visit Provider Nurse Practitioner
DX: A41.9 Sepsis, unspecified organism (principal); K85.92 Acute pancreatitis with infected necrosis, unspecified; J18.9 Pneumonia, unspecified organism; I10 Essential (primary) hypertension; R00.0 Tachycardia, unspecified; Z20.822 Contact with and (suspected) exposure to COVID-19; K80.20 Calculus of gallbladder without cholecystitis without obstruction; R19.7 Diarrhea, unspecified; E86.0 Dehydration; D50.9 Iron deficiency anemia, unspecified; E66.01 Morbid (severe) obesity due to excess calories; Z68.43 Body mass index [BMI] 50.0-59.9, adult
CPT/HCPCS: 36415; 36569; 71275; 74177; 76705; 80053; 80061; 81001; 81003; 82010; 82607; 82728; 82746; 83540; 83550; 83605; 83690; 83735; 84100; 84466; 84478; 85025; 87040; 87086; 87088; 93005; 96361; 96365; 96366; 96367; 96375; 99285; A9270; C1751; C9113; C9803; J0131; J0456; J1885; J2270; J2405; J2543; J3480; J7030; J7040; J7120; Q9967; U0003; U0005

== ENCOUNTER 2021-12-24 15:27 | Inpatient (IN) | payer OTHER, SELFPAY ==
--- NOTE | ~2021-12-24 | CT_ITS ---
EXAMINATION: CT abdomen pelvis w con DATE: 01/03/2022 13:37 INDICATION: panc TECHNIQUE: Computed tomography (CT) of the abdomen and pelvis was performed with 100 mL Omnipaque-300 intravenous contrast. Automated exposure control and iterative reconstruction technique were employe d. The dose-length product was 1430.97 mGy-cm. COMPARISON: 12/25/2021. FINDINGS: Lower thorax: Resolution of the left effusion and basilar atelectasis. Liver: Normal. Biliary/Gallbladder: Gallbladder is normal. No bile duct dilation. Pancreas: Multiple/multiloculated perihepatic fluid collections are slightly larger and more well-def ined. Small portions of normal pancreatic parenchyma at the head and possibly tail. Narrowing of the main portal vein and splenic vein, without intraluminal thrombus. Spleen: Mild bilaterally. Adrenals:No mass. Kidneys: Bilateral nonobstructive calculi. No renal mass or hydronephrosis. GI tract: No small or large bowel dilation. Normal appendix. Mesentery/Peritoneum: No ascites, mass, or free air. Mesenteric adenopathy. Retroperitoneum: No mass. Pelvis: Pelvic organs are within normal limits. Soft Tissues: Soft tissues and body wall unremarkable. Bones: No acute osseous finding. IMPRESSION: Evolving sequelae of acute pancreatitis and large acute necrotic collections. Reviewed, dictated and finalized at location K.
--- NOTE | ~2021-12-24 | CT_ITS ---
EXAMINATION: CT abdomen w con DATE: 12/25/2021 13:29 INDICATION: Acute pancreatitis. TECHNIQUE: Computed tomography (CT) of the abdomen was performed with 100 mL Omnipaque 300 intravenou s contrast. Automated exposure control and iterative reconstruction technique were employed. The dose -length product was 1016.93 mGy-cm. COMPARISON: CT abdomen and pelvis 12/15/2021 FINDINGS: The visualized portions of the lung bases demonstrate dependent atelectasis. There is a sma ll left pleural effusion. The heart size is normal. No pericardial effusion. The liver, gallbladder, spleen, adrenal glands, and kidneys are normal. There is nonenhancement of portions of the body and t ail of the pancreas. There is a peripherally enhancing acute necrotic collection around the pancreas measuring 12.3 x 4.9 cm. This finding represents interval organization of the previously seen finding s without significant change in distribution. There is narrowing of the splenic vein and portosplenic confluence. Gastric varices are noted. There is mild mesenteric lymphadenopathy, likely reactive. Th ere is no free intraperitoneal fluid. There is mild thoracolumbar spondylosis. IMPRESSION: 1. Acute necrotic pancreatitis with peripancreatic acute necrotic collection. 2. Small left pleural effusion. Reviewed, dictated and finalized at location A.
--- NOTE | ~2021-12-24 | US_ITS ---
EXAMINATION: US abdomen limited DATE: 12/25/2021 11:23 INDICATION: Cholelithiasis TECHNIQUE: Multiple grayscale and Doppler ultrasound images of the abdomen were obtained. COMPARISON: CT dated 12/15/2021 and ultrasound dated 12/16/2021 FINDINGS: There is a 3.3 x 3.3 cm mixed hypoechoic and anechoic structures in the region of the head of the moreland creas with differential including an acute necrotic collection or acute peripancreatic collection rel ated to acute pancreatitis or fluid and debris within the duodenum or duodenal diverticulum. The prox imal to mid inferior vena cava is normal. Liver has normal echogenicity and contour, with a smooth nava rface. No liver lesion identified. No intrahepatic biliary duct dilation suspected. Portal venous rohit w was seen in the hepatopetal, normal direction and has normal Doppler waveform. Wall likely shadow c omplex at the gallbladder fossa consistent with completely gallstone filled gallbladder. No evident t hickening of the visualized portion of the gallbladder wall. The common bile duct measures [address] which is normal. Sonographic Yi sign was reported as negative by the application software engineer. IMPRESSION: 1. 3.3 x 3.3 cm complex fluid collection in the region of the head of the pancreas with differential including an acute necrotic collection or acute peripancreatic collection related to acute pancreatit is or fluid and debris within the duodenum or duodenal diverticulum. 2. Cholelithiasis. No intra-axial hepatic biliary ductal dilation or findings to suggest acute cholec ystitis. Reviewed, dictated and finalized at location B. IMPRESSION: 1. 3.3 x 3.3 cm complex fluid collection in the region of the head of the pancr eas with differential including an acute necrotic collection or acute peripancr eatic collection related to acute pancreatitis or fluid and debris within the d uodenum or duodenal diverticulum. 2. Cholelithiasis. No intra-axial hepatic biliary ductal dilation or findings t o suggest acute cholecystitis.
--- NOTE | ~2021-12-24 | XR_ITS ---
XR chest PICC line DATE: 12/26/2021 12:44 INDICATION: PICC line placement TECHNIQUE: Portable AP chest on 12/26/2021 at 1232 hours COMPARISON: 12/16/2021 portable AP chest FINDINGS: Right upper extremity PIC catheter tip overlies the superior vena cava. Normal heart size. Diminished infiltrate in the left lower lung. Remaining lung garvey appear clear. Small left pleural effusion is suggested. No pneumothorax. IMPRESSION: Right upper stomach the catheter in superior vena cava Diminished left lower lobe infiltrate and/atelectasis since 12/16/2021 Reviewed, dictated and finalized at Location A. Reviewed, dictated and finalized at location A.
[2021-12-24 15:29] VITALS: BP 139/86; PULSE 111; RESP 16; TEMP 36.2; O2SAT 100
[2021-12-24 15:43] LABS: Basophils Percent Auto 0.5 % (0.2-1.2); Eosinophils Absolute Auto 0.2 K/mm3 (0-0.3); Eosinophils Percent Auto 1.9 % (0-4.4); Hematocrit 35.6 % (37.0-47.0); Immature Granulocyte Absolute 0.05 K/mm3 (0.00-0.031); Immature Granulocyte Percent A 0.6 % (0-0.5); Lymphocytes Absolute Auto 1.35 K/mm3 (0.9-3.2); Lymphocytes Percent Auto 16.2 % (18.3-44.2); Mean Corpuscular HGB Conc 30.9 g/dl (32-36); Mean Corpuscular Hemoglobin 25.5 pg (26-34); Mean Corpuscular Volume 82.4 fl (80-100); Mean Platelet Volume 8.9 fl (7.4-10.4); Monocytes Absolute Auto 0.5 K/mm3 (0.1-0.6); Monocytes Percent Auto 5.8 % (2.6-8.5); Neutrophils Absolute Auto 6.3 K/mm3 (1.3-6.7); Platelet Count Result 644 k/mm3 (150-375); Red Blood Count 4.32 M/mm3 (4.2-5.4); Red Cell Distribution Width 13.7 % (11.5-14.5); White Blood Count 8.3 K/mm3 (4.5-10.0)
[2021-12-24 15:52] LABS: Alanine Aminotransferase 14 U/L (6-35); Albumin Level 3.6 g/dL (3.5-5.1); Alkaline Phosphatase 79 U/L (38-126); Anion Gap 6 mmol/L (8-16); Aspartate Amino Transferase 24 U/L (14-36); Bilirubin,Total 0.4 mg/dL (0.2-1.3); Blood Urea Nitrogen 3 mg/dL (7-17); Calcium 8.8 mg/dL (8.4-10.2); Carbon Dioxide 29 mmol/L (22-30); Chloride 103 mmol/L (98-107); Estimated CRCL calculation 143 ml/min; Estimated Glomerular Filt Rate > 60; Glucose 137 mg/dL (65-110); Lipase 718 U/L (23-300); Potassium 3.6 mmol/L (3.4-5.0); Sodium 138 mmol/L (137-145)
[2021-12-24 15:56] LABS: Appearance Urine Slightly Cloudy (Clear); Bilirubin Urine Negative (Negative); Color Urine Yellow (Yellow); Glucose Urine UA Negative (Negative); Ketones Urine Negative (Negative); Leukocyte Esterase Ur Negative LEU/UL (Negative); Nitrate Urine Negative (Negative); Protein Urine Trace mg/dL (Negative); Specific Grav Ur 1.025 (1.001-1.035); Urobilinogen Urine 0.2 mg/dL (<2.0)
[2021-12-24 15:58] LABS: Bacteria Urine Trace /hpf; Mucus Urine Rare /lpf; Squamous Epithelial Cell Urine Few /hpf (Few)
[2021-12-24 15:59] LABS: Add Urine Microscopic? YES; Blood Urine Trace-Intact (Negative)
--- NOTE | 2021-12-24 17:02 | ED.ABDPAIN ---
HPI - Abdominal Pain General Chief Complaint: Abdominal Pain Stated Complaint: ABD pain Time Seen by Provider: 12/24/21 16:38 Source: patient, RN notes reviewed and old records reviewed Mode of arrival: ambulatory Limitations: no limitations History of Present Illness HPI narrative: This is a 26 year old female with history of pancreatitis who presents for evaluation of upper abdominal pain. She was admitted to hospital over 1 week ago with left flank pain, and she was found to have pancreatitis at that time. She was able to be discharged on Tuesday on low fat diet. She states she has been sticking with her diet, but she developed epigastric abdominal dinora n with back pain today. She has associated nausea but no vomiting. She states she did not have epigastric pain with her last episode of pancreatitis. She was told it was due to gallstone. She reports temperature was 99 f yesterday but he has been normal today. She has not taken any medication for pain. She rates her pain as 7/10. Related Data Home Medications Medication Instructions Recorded Confirmed norethindrone (contraceptive) 0.35 1 tablet PO DAILY 12/13/21 12/24/21 mg tablet Allergies Allergy/AdvReac Type Severity Reaction Status Date / Time lactose Allergy Abdominal Verified 12/16/21 17:34 Pain hydrochlorothiazide AdvReac Other Verified 12/18/21 12:49 Review of Systems Review of Systems: All systems reviewed & are unremarkable except as noted in HPI and below Constitutional: Constitutional: Denies chills, Denies fatigue and Denies fever(s) Cardiovascular: Cardiovascular: Denies chest pain Gastrointestinal: Gastrointestinal: Reports abdominal pain, Denies diarrhea and Reports nausea Genitourinary: Genitourinary: Denies hematuria, Denies nocturia and Reports flank pain Musculoskeletal: Musculoskeletal: Reports back pain [facility] Past Medical History Medical History Cholelithiasis Hypertension Morbid obesity Family History Family History Mother Heart disease Renal failure Hypertension Grandparent Hypertension History of TIAs Social History Social History Social History: Patient currently lives with her mother and her grandmother. She has no pets. Her mother Anita will be her surrogate. She wishes to be a full code. Smoking status: Never smoker Second hand tobacco smoke exposure: No Alcohol intake: current Drinks per week: 1 Substance use: current Substance use type: marijuana Other substance usage details: marijuana not often once every 2 months Last use: 11/09/21 Additional living arrangements comments: Lives with her mother and grandmother Additional occupation/education comments: [employer] in [place] Gender identity (if verbalized by the patient): Female Sexual Orientation (if Verbalized by the Patient): Straight or Heterosexual Spiritual care concerns: No Agree to blood products: Yes Exam Const: General: no acute distress and alert Nutritional Appearance: obese Orientation/consciousness: patient oriented x3 Limitations: no limitations HENMT: Head: normal to inspection Face and sinus: normal facial exam Eyes: EOM: EOMs intact bilaterally Chest: Chest palpation & inspection: normal inspection of the chest Resp: Effort & Inspection: normal respiratory effort Auscultation: clear to auscultation bilaterally and breath sounds present Cardio: Rate: regular rate Rhythm: regular rhythm Heart sounds: no murmurs GI: GI Palp: Yes Soft to palpation and Yes Tenderness to palpation present (GI) (RUQ, epigastric, LUQ) Back/Spine/Pelvis: Back: no CVA tenderness Skin: General skin exam: normal color Rashes: no rashes Wounds: no wounds Neuro: General: patient oriented x3, moves all extremities and
[2021-12-24] MEDS: ONDANSETRON INJ 4 MG/2 ML VIAL IV PUSH (17:31)
[2021-12-24] MEDS: MORPHINE SULFATE (*CRX) 4 MG/ML INJ IV PUSH (17:33)
[2021-12-24] MEDS: SODIUM CHLORIDE 0.9% IV 1,000 ML 999 ML IV CONT (17:37)
--- NOTE | 2021-12-24 18:36 | PM.IMHP ---
H&P: HPI History of Present Illness Date/Time: 12/24/21 18:30 Chief Complaint: Abdominal Pain Narrative: This very pleasant 26 year old female patient with significant PMH of morbid obesity, Recent Pancreatitis Hospitalization, Cholelithiasis without Cholecystitis, HTN, and chronic anemia presents to the ER today with complaints of having abdominal pain after being discharged from the hospital on 12/18/21 when she was treated for acute necrotizing pancreatitis at that time. Her initially elevated Lipase had returned to normal at the time of discharge and it was 113. She had developed a fever days before her discharge and she was started on abx. Cholelithiasis was identified and the patient was advised to follow up with Dr. Monzon in a couple of weeks. She has an appointment on Tuesday to see him. She had CT scans of the abdomen and pelvis both on 12/13/21 and also on 12/15/21 that both indicated Pancreatitis without much change. She then had an US of the Abdomen on that demonstrated Cholelithiasis without Cholecystitis. Her Triglycerides were checked on 12/13/21 and 12/16/21 and both times they were normal. The patient denies any alcohol use whatsoever. She was instructed to maintain a low fat diet as an outpatient for management and to increase her water intake. She endorses that she has increased her water intake and she has also been eating very low fat. She has had low grade fevers in the 99's daily since being discharged from the hospital. She reportedly woke up today and had increasing pain in her abdomen that started Epigastric and spread to the LUQ. The pain is a constant ache of varying degrees. Nothing makes better or worse that she can identify today. Labs were checked upon re-presentation to the ER and her Lipase is elevated again at 718 as compared to the level at discharge of 113 now 6 days ago. ER physician spoke with Dr. Ghotra who agrees to either see as outpatient or she could be admitted for hydration and pain control. No further imaging was performed today as she has had two CT scans in the past week. Will defer to GI to re-image or not as she has had a lot of radiation exposure. At the time of my assessment, the pt,. has abdominal pain that starts in the epigastric region and spreads to the LUQ. She is tender to palpation and complains of various aches and pains in her neck and back, but believes it is from how she slept. She has no CP, Dyspnea, and she has not vomited or had diarrhea, but she does remain nauseated at times. She has no urinary urgency, burning, frequency or hematuria. She is agreeable to observation admission for IV Hydration and to be kept NPO. Review of Systems Review of Systems: All systems reviewed & are unremarkable except as noted in HPI and below PMFSH Past Medical History Medical History Cholelithiasis Hypertension Morbid obesity Family History Family History Mother Heart disease Renal failure Hypertension Grandparent Hypertension History of TIAs Social History Social History Social History: Patient currently lives with her mother and her grandmother. She has no pets. Her mother Anita will be her surrogate. She wishes to be a full code. Smoking status: Never smoker Alcohol intake: never Substance use: current Substance use type: marijuana Other substance usage details: marijuana not often once every 2 months Last use: 11/09/21 Additional living arrangements comments: Lives with her mother and grandmother Additional occupation/education comments: [employer] in [place] Gender identity (if verbalized by the patient): Female Sexual Orientation (if Verbalized by the Patient): Straight or Heterosexual Spiritual care concerns: No Agree to blood products: Yes Meds Home Medications and All
[2021-12-24 19:17] VITALS: BP 137/83; PULSE 98; RESP 18; O2SAT 100
[2021-12-24 19:29] LABS: SARS-CoV-2 RNA PCR Negative
[2021-12-24 19:30] VITALS: BP 120/64; PULSE 108; RESP 18; TEMP 36.6; O2SAT 100; BMI 48.5
--- NOTE | 2021-12-24 19:55 | ADMGEN ---
This patient, Deepti De La Fuente, was admitted to [facility] Surg Room 312-01. Patient/family oriented to hospital policies and general routines including ID bracelet, bed and alarms, visiting hours, pain management, procedures, bathroom and other care routines, personal items, smoking policy, room service/diet, and visiting hours. Information on how to activate the Rapid Response Team has been discussed. Patient/Family are encouraged to report perceived risks to care and to ask questions if they do not understand what they are told or what they should do.
[2021-12-24] MEDS: SODIUM CHLORIDE 0.9% IV 1,000 ML 125 ML IV CONT (20:10)
[2021-12-24] MEDS: HYDROmorphone HCL INJ (*CRX) 1 MG/ML SYR 0.5 MG IV PUSH (21:32)
[2021-12-24 21:38] VITALS: BP 131/68; PULSE 108; RESP 18; TEMP 37; O2SAT 100
[2021-12-25] MEDS: HYDROmorphone HCL INJ (*CRX) 1 MG/ML SYR 0.5 MG IV PUSH ×3 (01:39→22:23)
[2021-12-25] MEDS: SODIUM CHLORIDE 0.9% IV 1,000 ML 125 ML IV CONT ×2 (04:00→18:20)
[2021-12-25 05:31] VITALS: BP 129/67; PULSE 102; RESP 20; TEMP 37.2; O2SAT 96
[2021-12-25 06:49] LABS: Alanine Aminotransferase 13 U/L (6-35); Albumin Level 3.2 g/dL (3.5-5.1); Alkaline Phosphatase 69 U/L (38-126); Anion Gap 6 mmol/L (8-16); Aspartate Amino Transferase 23 U/L (14-36); Bilirubin,Total 0.5 mg/dL (0.2-1.3); Blood Urea Nitrogen 3 mg/dL (7-17); Calcium 8.5 mg/dL (8.4-10.2); Carbon Dioxide 27 mmol/L (22-30); Chloride 104 mmol/L (98-107); Estimated CRCL calculation 126 ml/min; Estimated Glomerular Filt Rate > 60; Glucose 111 mg/dL (65-110); Lipase 572 U/L (23-300); Potassium 3.5 mmol/L (3.4-5.0); Sodium 137 mmol/L (137-145)
[2021-12-25 07:12] LABS: Basophils Percent Auto 0.5 % (0.2-1.2); Eosinophils Absolute Auto 0.1 K/mm3 (0-0.3); Eosinophils Percent Auto 1.5 % (0-4.4); Hematocrit 30.2 % (37.0-47.0); Hemoglobin 9.3 g/dL (12.0-15.0); Immature Granulocyte Absolute 0.04 K/mm3 (0.00-0.031); Immature Granulocyte Percent A 0.5 % (0-0.5); Lymphocytes Percent Auto 16.7 % (18.3-44.2); Mean Corpuscular HGB Conc 30.8 g/dl (32-36); Mean Corpuscular Hemoglobin 25.4 pg (26-34); Mean Corpuscular Volume 82.5 fl (80-100); Mean Platelet Volume 9.1 fl (7.4-10.4); Monocytes Absolute Auto 0.8 K/mm3 (0.1-0.6); Monocytes Percent Auto 9.9 % (2.6-8.5); Neutrophils Percent Auto 70.9 % (45.5-73.1); Platelet Count Result 617 k/mm3 (150-375); Red Blood Count 3.66 M/mm3 (4.2-5.4); Red Cell Distribution Width 13.8 % (11.5-14.5); White Blood Count 8.4 K/mm3 (4.5-10.0)
[2021-12-25 08:00] VITALS: PULSE 102; RESP 20; O2SAT 96
[2021-12-25] MEDS: ENOXAPARIN 40 MG/0.4 ML SYRINGE SUB-Q (09:20)
[2021-12-25] MEDS: PANTOPRAZOLE SODIUM IV 40 MG VIAL IV PUSH (09:20)
--- NOTE | 2021-12-25 11:08 | PM.CNGS ---
Assessment and Plan Assessment and plan (1) Acute pancreatitis: Code(s): K85.90 - Acute pancreatitis without necrosis or infection, unspecified Status: Acute Assessment and Plan: (noted at 11 AM) Appears to have recurrent symptoms and again elevation of lipase. Recommend doing a CT abdomen with contrast to compare how the severe pancretaic changes seen previouslyare now. (D/w Dr Rowley in radiology). 2341: I have gotten to review the report on this patient's CT of the abdomen with contrast. It reveals probable gradual formation of a pseudocyst or perhaps an area of necrosis of the pancreas. In view of this recurrent apparent severe pancreatitis with pain but no signs of current infection would recommend placement of a PICC line and then TPN in keeping the patient NPO. I believe she would be best cared for in a tertiary care center where there is a hepatobiliary surgeon to follow her and decide whether not she needs intervention surgically and therefore have all the tools prepared to do that. Then if that is needed she could have a laparoscopic or open cholecystectomy at the time that intervention is done for the pancreas. Relate this to the hospitalist, Dr. Jett in the morning and see they agree to transfer to a higher level of care. DJ (2) Cholelithiasis: Code(s): K80.20 - Calculus of gallbladder without cholecystitis without obstruction Status: Acute History of Present Illness Consult details Consult date: 12/26/21 Reason for consult: other (pancreatitis c known Cholelithiasis) Narrative: This a 26 year old Black female patient well known to me from her last visit here at [place] with a significant PMH of morbid obesity, recent Pancreatitis, recently discovered Cholelithiasis without Cholecystitis when ultrasound was done trying to look for the reason for her pancreatitis. She also has HTN, and chronic anemia. She presented back to the [place] ER today with complaints of having abdominal pain after being discharged from the hospital on 12/18/21 when she was treated for acute necrotizing pancreatitis at that time. Her initially elevated Lipase had returned to normal at the time of discharge and it was 113. She had developed a fever days before her discharge and she was started on abx. at that time it was felt she may have some element of early pneumonia also. Cholelithiasis was identified by an ultrasound done during that admission and the patient was advised to follow up with Dr. Monzon in a couple of weeks. was also strongly encouraged to stay on a no or low-fat diet to minimize chances of storing upper gallbladder. She has an appointment scheduled for next Tuesday to see me. She had CT scans of the abdomen and pelvis both on 12/13/21 and also on 12/15/21 that indicated Pancreatitis without much change on the 2nd one. She then had an US of the Abdomen on that demonstrated Cholelithiasis without Cholecystitis. this was done because prior to that no definite understandable etiology was present for her pancreatitis. Her Triglycerides were checked on 12/13/21 and 12/16/21 and both times they were normal. The patient had been on hydrochlorothiazide for her hypertension which is a known possible drug that has side effects that can cause pancreatitis. Therefore she was sent home on a different medication. The patient denies any alcohol use whatsoever , but told me last visit that it had been about 2 weeks prior she had had had a [place] at a [employer]. At the time of her discharge last week she was instructed to maintain a low fat diet as an outpatient for management and to increase her water intake. is also sent home on Augmentin 875/125 for 7 days. She endorses that she has increased her water intake and she has also been eating very low fat. She has had low grade fevers in the 99's daily since being discharged from the hospital. She reportedly woke up today and had increasing pain in her abdo
--- NOTE | 2021-12-25 13:52 | PM.IMPN ---
Progress Note: A&P Assessment and Plan (1) Acute pancreatitis: Code(s): K85.90 - Acute pancreatitis without necrosis or infection, unspecified Status: Acute Assessment and Plan: -recurrent, had recent admission for same -lipase was normal on discharge 12/18/21, now elevated again -completed Augmentin course started on 12/18/21 -NPO, IVF, pain control, anti emetics -RUQ US and repeat CT w/ contrast -GI and general surgery consult placed (2) Cholelithiasis: Code(s): K80.20 - Calculus of gallbladder without cholecystitis without obstruction Status: Acute Assessment and Plan: -general surgery consulted -RUQ US and Ct abd pelv pending -LFTs and bili WNL -prior imaging during last admission showed cholelithiasis without cholecystitis -had f/u appt scheduled next week with surgery -additional plan as above (3) Morbid obesity: Code(s): E66.01 - Morbid (severe) obesity due to excess calories Status: Acute Assessment and Plan: -Pt to consider lifestyle changes as an outpatient -Must maintain a low fat diet not only for weight management, but also for prevention of recurrent Pancreatitis (4) Hypertension: Code(s): I10 - Essential (primary) hypertension Status: Acute Assessment and Plan: - Started on Amlodipine 5 mg po daily at her last admission. - BP stable at 129/67 - Will continue her Amlodipine home dose when no longer NPO (5) Chronic anemia: Code(s): D64.9 - Anemia, unspecified Status: Acute Assessment and Plan: -Pt found to be anemic on last admission, and was started on Iron supplementation -Hgb has increased from 9.4-->11.0 over the past 6 days and she appears stable with her CBC and RBC indices -Continue home iron supplementation (6) Elevated platelet count: Code(s): R79.89 - Other specified abnormal findings of blood chemistry Status: Acute Assessment and Plan: -Thromycythemia vs. Thrombocytosis vs. Hemoconcentration -Platelets normal at previous hospitalization. Now are elevated at 644. -Last CT performed on 12/15/21 shows no thrombosis of the splenic, portal or SMA veins. -Pt. has no known personal history and no known family history of any blood clotting disorders. -Hydrated overnight, slight decreased to 617 today -recheck CBC tomorrow, consider heme consult if no continued improvement Subjective Date/time seen: 12/25/21 13:52 Interval history: 26 year old female patient with significant PMH of morbid obesity, Recent Pancreatitis Hospitalization, Cholelithiasis without Cholecystitis, HTN, and chronic anemia, who was again admitted for abdominal pain. She is feeling better right now. Still having abdominal pain across her upper abdomen which she describes as achey. Some nausea but it is improved. No diarhea. No urinary changes. No cp/sob. Review of Systems Review of Systems: All systems reviewed & are unremarkable except as noted in HPI and below Exam Narrative: General: No acute distress, non toxic appearing, morbidly obese Eyes: PERRL, no scleral icterus HEENT: NCAT, external ears normal, MMM Respiratory: No respiratory distress, Lungs CTA bilaterally, no wheezing Cardiovascular: RRR, no murmur Abdominal: Soft, non distended, mild ttp epigastric/bi upper quadrants, no rebound or guarding Musculoskeletal: Moves all 4 extremities, no edema Neurological: A/Ox3, speech clear, no facial asymmetry Skin: Warm, dry, no rashes Psychiatric: Normal affect, normal mood Objective Data Vital Signs Vital Signs: Vital Signs - 24 hr 12/24/21 15:29 12/24/21 19:17 12/24/21 19:30 Temperature 97.1 F L 97.9 F Pulse Rate 111 H 98 108 H Respiratory Rate 16 18 18 Blood Pressure 139/86 137/83 120/64 Pulse Oximetry 100 100 100 Oxygen Delivery Room Air 12/24/21 20:00 12/24/21 21:38 12/25/21 05:31 Temperature 98.6 F 98.9 F Pulse Rate 1
[2021-12-25 14:00] VITALS: BP 133/75; PULSE 91; RESP 19; TEMP 35.9; O2SAT 97
--- NOTE | 2021-12-25 14:09 | WPDGICN ---
Assessment and Plan Assessment and plan (1) Acute pancreatitis: Code(s): K85.90 - Acute pancreatitis without necrosis or infection, unspecified Status: Acute Assessment and Plan: CT scan pending probably evolving necrotizing pancreatitis or pseudocyst but normal bile duct size and also liver enzymes supportive care, npo status for now pain control (2) Cholelithiasis: Code(s): K80.20 - Calculus of gallbladder without cholecystitis without obstruction Status: Acute Assessment and Plan: surgery on board (3) Acute necrotizing pancreatitis: Code(s): K85.91 - Acute pancreatitis with uninfected necrosis, unspecified Status: Acute Assessment and Plan: supportive care follow clinical course (4) Hypertension: Code(s): I10 - Essential (primary) hypertension Status: Acute (5) Morbid obesity: Code(s): E66.01 - Morbid (severe) obesity due to excess calories Status: Acute GI Consult Note Consult date/time: 12/25/21 14:09 Reason for consult: pancreatitis HPI: Deepti De La Fuente is a 26 year old female with history of HTN and morbid obesity with recent hospitalization after she has pancreatitis, CT scan showed severe acute necrotizing pancreatitis, no ductal biliary dilation with normalization of liver enzyms, ultrasound revealed cholelithiasis. She went home and pain resolved but yesterday again with more upper abdominal pain and bloating, also nausea, denies fever. She took tylenol. Denies alcohol intake. She had normal liver enzymes, lipase 700's. Pain now is better after medication. Abdominal ultrasound showed 3.3 x 3.3 cm complex fluid collection in the region of the head of the pancreas with differential including an acute necrotic collection or acute peripancreatic collection with normal bile duct size. CT scan just completed. She is feeling better now. Review of Systems Review of Systems: All systems reviewed & are unremarkable except as noted in HPI and below (HPI) Constitutional: Constitutional: Reports as per HPI, Denies chills and Denies fever(s) Eyes: Eyes: Reports no additional eye complaints ENT: Reports Normal hearing present and Denies dizziness Cardiovascular: Cardiovascular: Reports no additional cardiovascular complaints, Denies chest pain and Denies irregular heart rhythm Respiratory: Respiratory: Reports no additional respiratory complaints Gastrointestinal: Gastrointestinal: Reports no additional gastrointestinal complaints Genitourinary: Genitourinary: Denies hematuria Musculoskeletal: Musculoskeletal: Denies back pain Integumentary/Breasts: Skin/Breast: Reports system reviewed and no additional complaints, except as docu Neurologic: Reports Normal hearing present, Denies Abnormal speech present, Denies confusion and Denies dizziness Psychiatric: Psychiatric: Reports no additional psychiatric complaints and Denies confusion Endocrine: Endocrine: Reports no additional endocrine complaints Hematologic/Lymphatic: Hematologic/Lymphatic: Denies easy bleeding and Denies easy bruising Allergic/Immunologic: Allergic/Immunologic: Reports no additional allergic/immunologic complaints PMF Past Medical History Medical History Cholelithiasis Hypertension Morbid obesity Family History Family History Mother Heart disease Renal failure Hypertension Grandparent Hypertension History of TIAs Social History Social History Social History: Patient currently lives with her mother and her grandmother. She has no pets. Her mother Anita will be her surrogate. She wishes to be a full code. Smoking status: Never smoker Second hand tobacco smoke exposure: No Alcohol intake: current Drinks per week: 1 Substance use: current Substance use t
[2021-12-25 21:48] VITALS: BP 112/70; PULSE 77; RESP 18; TEMP 36.6; O2SAT 100
[2021-12-26] MEDS: SODIUM CHLORIDE 0.9% IV 1,000 ML 125 ML IV CONT ×3 (00:07→16:19)
[2021-12-26] MEDS: HYDROmorphone HCL INJ (*CRX) 1 MG/ML SYR 0.5 MG IV PUSH ×2 (02:33→08:41)
[2021-12-26 06:00] VITALS: BP 122/70; PULSE 85; RESP 16; TEMP 36.2; O2SAT 100
[2021-12-26 07:29] LABS: Basophils Absolute Auto 0.1 K/mm3 (0.0-0.1); Basophils Percent Auto 0.9 % (0.2-1.2); Eosinophils Absolute Auto 0.1 K/mm3 (0-0.3); Eosinophils Percent Auto 1.8 % (0-4.4); Hematocrit 29.3 % (37.0-47.0); Immature Granulocyte Absolute 0.02 K/mm3 (0.00-0.031); Immature Granulocyte Percent A 0.4 % (0-0.5); Lymphocytes Absolute Auto 1.16 K/mm3 (0.9-3.2); Lymphocytes Percent Auto 20.4 % (18.3-44.2); Mean Corpuscular HGB Conc 30.7 g/dl (32-36); Mean Corpuscular Hemoglobin 25.5 pg (26-34); Mean Platelet Volume 9.1 fl (7.4-10.4); Monocytes Absolute Auto 0.5 K/mm3 (0.1-0.6); Monocytes Percent Auto 9.1 % (2.6-8.5); Neutrophils Absolute Auto 3.8 K/mm3 (1.3-6.7); Neutrophils Percent Auto 67.4 % (45.5-73.1); Platelet Count Result 572 k/mm3 (150-375); Red Blood Count 3.53 M/mm3 (4.2-5.4); Red Cell Distribution Width 13.7 % (11.5-14.5); White Blood Count 5.7 K/mm3 (4.5-10.0)
[2021-12-26 07:48] LABS: Alanine Aminotransferase 14 U/L (6-35); Albumin Level 3.4 g/dL (3.5-5.1); Alkaline Phosphatase 69 U/L (38-126); Anion Gap 6 mmol/L (8-16); Aspartate Amino Transferase 29 U/L (14-36); Bilirubin,Total 0.4 mg/dL (0.2-1.3); Blood Urea Nitrogen 2 mg/dL (7-17); Calcium 8.4 mg/dL (8.4-10.2); Carbon Dioxide 28 mmol/L (22-30); Chloride 102 mmol/L (98-107); Estimated CRCL calculation 145 ml/min; Estimated Glomerular Filt Rate > 60; Glucose 84 mg/dL (65-110); Lipase 390 U/L (23-300); Potassium 3.3 mmol/L (3.4-5.0); Sodium 136 mmol/L (137-145)
--- NOTE | 2021-12-26 08:25 | WPDGIPROGNO ---
Progress Note: A&P Assessment and Plan (1) Acute necrotizing pancreatitis: Code(s): K85.91 - Acute pancreatitis with uninfected necrosis, unspecified Status: Acute Assessment and Plan: Patient with necrotizing pancreatitis on imaging studies. She appears to be improving. White count has decreased to normal. Lipase now 390. I would be very slowed initiate diet and advance slowly. Continued supportive care for now. At some point when stable she will need cholecystectomy. Surgery is on the case and following her as well. For surgery for gallstones. Continue IV fluids and supportive care for now. (2) Cholelithiasis: Code(s): K80.20 - Calculus of gallbladder without cholecystitis without obstruction Status: Acute Assessment and Plan: Gallstones appear to be etiology of recent pancreatitis. Surgery on the case. (3) Hypertension: Code(s): I10 - Essential (primary) hypertension Status: Acute Subjective Date/time seen: 12/26/21 08:25 I am covering for Dr. Jett today. Patient seen in follow-up. She reports feeling better today. Denies any significant pain. No nausea vomiting. No recent BM. Review of Systems Review of Systems: Review of systems noncontributory. Exam Narrative: Physical exam reveals patient be alert. Vital signs are stable. She is afebrile. HEENT exam reveals no icterus. Lungs are clear to auscultation. Heart without murmur. Abdomen bowel sounds are present soft nontender with no organomegaly. She is modestly obese. Extremities are without clubbing cyanosis or edema. Objective Data Vital Signs Vital Signs: Vital Signs - 24 hr 12/25/21 14:00 12/25/21 21:48 12/26/21 06:00 Temperature 96.7 F L 97.9 F 97.2 F L Pulse Rate 91 77 85 Respiratory Rate 19 18 16 Blood Pressure 133/75 112/70 122/70 Pulse Oximetry 97 100 100 Intake/Output Intake/Output: Intake & Output 12/23/21 12/24/21 12/25/21 12/26/21 23:59 23:59 23:59 23:59 Intake Total 1000 2000 1000 Output Total 650 300 Balance 1000 1350 700 Meds/Results Medications: Active Medications Generic Name Dose Route Start Last Admin Trade Name Freq PRN Reason Stop Dose Admin Enoxaparin Sodium 40 mg 12/25/21 09:00 12/25/21 09:20 Enoxaparin 40 Mg/0.4 Ml Syringe SUB-Q 40 mg DAILY KIARA Administration Hydromorphone HCl 0.5 mg 12/24/21 18:10 12/26/21 02:33 Hydromorphone Hcl Inj (*Crx) 1 Mg/Ml Syr IV PUSH 0.5 mg Q4H PRN Administration Pain Rated 7-10 Sodium Chloride 1,000 mls @ 125 mls/hr 12/24/21 18:10 12/26/21 00:07 Normal Saline Iv IV CONT 125 mls/hr .Q8H KIARA Administration Ondansetron HCl 4 mg 12/24/21 18:10 Ondansetron Inj 4 Mg/2 Ml Vial IV PUSH Q4H PRN Nausea Pantoprazole Sodium 40 mg 12/25/21 09:00 12/25/21 09:20 Pantoprazole Sodium Iv 40 Mg Vial IV PUSH 40 mg QAM KIARA Administration Radiology Results: ITS Impressions Abdomen Ultrasound 12/25/21 11:36 IMPRESSION: 1. 3.3 x 3.3 cm complex fluid collection in the region of the head of the pancreas with differential including an acute necrotic collection or acute peripancreatic collection related to acute pancreatitis or fluid and debris within the duodenum or duodenal diverticulum. 2. Cholelithiasis. No intra-axial hepatic biliary ductal dilation or findings to suggest acute cholecystitis. Abdomen CT 12/25/21 13:32 IMPRESSION: 1. Acute necrotic pancreatitis with peripancreatic acute necrotic collection. 2. Small left pleural effusion. Labs Labs: Laboratory Results - last 24 hr 12/26/21 12/26/21 06:00 06:00 WBC 5.7 RBC 3.53 L Hgb 9.0 L Hct 29.3 L MCV 83.0 MCH 25.5 L MCHC 30.7 L RDW 13.7 Plt Count 572 H MPV 9.1 Immature Gran % (Auto) 0.4 Neut % (Auto) 67.4 Lymph % (Auto) 20.4 [place] % (Auto) 9.1 H Eos % (Auto) 1.8 Baso % (Auto) 0.9 Lymph # (Auto) 1.16 [place] # (Auto) 0.5 Eo
[2021-12-26] MEDS: PANTOPRAZOLE SODIUM IV 40 MG VIAL IV PUSH (08:41)
[2021-12-26] MEDS: ENOXAPARIN 40 MG/0.4 ML SYRINGE SUB-Q (08:41)
--- NOTE | 2021-12-26 11:02 | PM.IMPN ---
Progress Note: A&P Assessment and Plan (1) Acute pancreatitis: Code(s): K85.90 - Acute pancreatitis without necrosis or infection, unspecified Status: Acute Assessment and Plan: -recurrent, had recent admission for same -lipase was normal on discharge 12/18/21, now elevated again -completed Augmentin course started on 12/18/21 -NPO, IVF, pain control, anti emetics -RUQ US and repeat CT w/ contrast -GI and general surgery consult placed 12/26: Imaging shows pseudocyst versus necrotic collection of fluid, started on Primaxin, transfer to facility with hepatobiliary support pending, maintain NPO, IV fluids, PICC line being placed for TPN (2) Cholelithiasis: Code(s): K80.20 - Calculus of gallbladder without cholecystitis without obstruction Status: Acute Assessment and Plan: -general surgery consulted -RUQ US and Ct abd pelv pending -LFTs and bili WNL -prior imaging during last admission showed cholelithiasis without cholecystitis -had f/u appt scheduled next week with surgery -additional plan as above (3) Morbid obesity: Code(s): E66.01 - Morbid (severe) obesity due to excess calories Status: Acute (4) Hypertension: Code(s): I10 - Essential (primary) hypertension Status: Acute Assessment and Plan: Amlodipine held while NPO, blood pressure stable (5) Chronic anemia: Code(s): D64.9 - Anemia, unspecified Status: Acute Assessment and Plan: -Pt found to be anemic on last admission, and was started on Iron supplementation -Hgb has increased from 9.4-->11.0 over the past 6 days and she appears stable with her CBC and RBC indices -Continue home iron supplementation (6) Elevated platelet count: Code(s): R79.89 - Other specified abnormal findings of blood chemistry Status: Acute Assessment and Plan: Suspect elevated platelets are reactive, trending down Subjective Date/time seen: 12/26/21 11:02 Interval history: Some abdominal tenderness reported. No overnight events noted. No chest pain or shortness of breath. No nausea, vomiting or diarrhea. No fevers or chills. Review of Systems Review of Systems: All systems reviewed & are unremarkable except as noted in HPI and below Exam Narrative: General: No acute distress, alert and oriented per baseline HEENT: Atraumatic, normocephalic, mucous membranes moist CV: Regular rate and rhythm, S1, S2 no murmurs rubs or gallops noted Lungs: Clear to auscultation bilaterally, no rales or crackles noted, no wheezes, good air entry Abdomen: Soft, somewhat tender in the epigastric and right upper quadrant areas, no rebounding or guarding Extremities: Normal to inspection Skin: No rashes noted, no lesions or wounds seen Psych: Euthymic, normal affect Neuro: Cranial nerves 2-12 grossly intact, strength +5/5 upper and lower extremities bilaterally Objective Data Vital Signs Vital Signs: Vital Signs - 24 hr 12/25/21 14:00 12/25/21 21:48 12/26/21 06:00 Temperature 96.7 F L 97.9 F 97.2 F L Pulse Rate 91 77 85 Respiratory Rate 19 18 16 Blood Pressure 133/75 112/70 122/70 Pulse Oximetry 97 100 100 Oxygen Delivery 12/26/21 09:15 Temperature Pulse Rate Respiratory Rate Blood Pressure Pulse Oximetry Oxygen Delivery Room Air Intake/Output Intake/Output: Intake & Output 12/23/21 12/24/21 12/25/21 12/26/21 23:59 23:59 23:59 23:59 Intake Total 1000 2000 2000 Output Total 650 300 Balance 1000 1350 1700 Meds/Results Medications: Active Medications Generic Name Dose Route Start Last Admin Trade Name Freq PRN Reason Stop Dose Admin Enoxaparin Sodium 40 mg 12/25/21 09:00 12/26/21 08:41 Enoxaparin 40 Mg/0.4 Ml Syringe SUB-Q 40 mg DAILY KIARA Administration Hydromorphone HCl 0.5 mg 12/24/21 18:10 12/26/21 08:41 Hydromorphone Hcl Inj (*Crx) 1 Mg/Ml Syr IV PUSH 0.5 mg Q4H PRN Administr
--- NOTE | 2021-12-26 11:09 | PM.PNGS ---
Progress Note: A&P Assessment and Plan (1) Acute pancreatitis: Code(s): K85.90 - Acute pancreatitis without necrosis or infection, unspecified Status: Acute Assessment and Plan: Today patient symptomatically is slightly better but she has been NPO. She is still needing to take some pain medicine periodically. Denies nausea or vomiting overnight. Has had 1 bowel movement since arriving in the hospital this time. ? I have gotten to review the report on this patient's CT of the abdomen with contrast.? It reveals probable gradual formation of a pseudocyst or perhaps an area of necrosis of the pancreas.? In view of this recurrent apparent severe pancreatitis with pain but no signs of current infection would recommend placement of a PICC line and then TPN in keeping the patient NPO.? (will start PPN, Clinimix through current IV until PICC line can be obtained) I believe she would be best cared for in a tertiary care center where there is a hepatobiliary surgeon to follow her and decide whether not she needs intervention surgically for this abnormal pancreas and therefore have all the tools prepared to do that.? Then if that is needed she could have a laparoscopic or open cholecystectomy at the time that intervention is done for the pancreas.? ? I elated this to the hospitalist, this morning and will see if they agree to transfer to a higher level of care.?? For now until transfer continue NPO status with parental nutrition and antibiotics to try to prevent infection of this area of necrosis in the pancreas which can be a very severe problem.. Subjective Subjective Date/Time Seen: 12/26/21 11:09 Patient reports: still having pain (5/10 in the upper mid abdomen), bowel movement (1-2 since entering the hospital) and afebrile Review of Systems Review of Systems: All systems reviewed & are unremarkable except as noted in HPI and below Constitutional: Constitutional: Reports as per HPI, Denies chills and Denies fever(s) Cardiovascular: Cardiovascular: Denies chest pain and Denies dyspnea Respiratory: Respiratory: Reports no additional respiratory complaints and Denies dyspnea Gastrointestinal: Gastrointestinal: Reports as per HPI and Denies bloating Musculoskeletal: Musculoskeletal: Reports no additional musculoskeletal complaints Neurologic: Denies memory loss Psychiatric: Psychiatric: Denies anxiety and Denies memory loss Exam Const: General: cooperative, alert and awake Orientation/consciousness: patient oriented x3 HENMT: Head: normal to inspection Mouth: Yes moist mucous membranes Eyes: Sclera: sclerae normal Pupils: Equal, round and reactive pupils present Neck: Neck: normal visual inspection and no JVD Chest: Chest palpation & inspection: normal inspection of the chest Resp: Effort & Inspection: normal respiratory effort Auscultation: clear to auscultation bilaterally Cardio: Jugular venous distension: no JVD Rate: regular rate GI: Inspection: normal to inspection, Pannus present and no visible herniation GI Palp: Yes abdominal tenderness (Mainly above the level of the umbilicus), Yes Firmness to palpation present (GI) and No Hernia present Percussion: Yes other (Mild tenderness upper abdomen) Auscultation: normal bowel sounds Rectal Exam: deferred Neuro: General: patient oriented x3 Cranial nerves: Yes Equal, round and reactive pupils present Objective Data Vital Signs Vital Signs: Vital Signs - 24 hr 12/25/21 14:00 12/25/21 21:48 12/26/21 06:00 Temperature 35.9 C L 36.6 C 36.2 C L Pulse Rate 91 77 85 Respiratory Rate 19 18 16 Blood Pressure 133/75 112/70 122/70 Pulse Oximetry 97 100 100 Oxygen Delivery 12/26/21 09:15 Temperature Pulse Rate Respiratory Rate Blood Pressure Pulse Oximetry Oxygen Delivery Room Air Intake/Output Intake/Output: Intake & Output 12/23/21 12/24/21 12/25/21 12/26/21 23:59 23:59 23:59 23:59 Intake Total 1000 1999
[2021-12-26 13:14] LABS: Glucose Point of Care 71 mg/dl (65-105)
[2021-12-26 13:37] LABS: Basophils Absolute Auto 0.1 K/mm3 (0.0-0.1); Basophils Percent Auto 0.7 % (0.2-1.2); Eosinophils Absolute Auto 0.1 K/mm3 (0-0.3); Eosinophils Percent Auto 1.3 % (0-4.4); Hematocrit 30.2 % (37.0-47.0); Hemoglobin 9.7 g/dL (12.0-15.0); Immature Granulocyte Absolute 0.04 K/mm3 (0.00-0.031); Immature Granulocyte Percent A 0.5 % (0-0.5); Lymphocytes Absolute Auto 1.74 K/mm3 (0.9-3.2); Lymphocytes Percent Auto 23.4 % (18.3-44.2); Mean Corpuscular HGB Conc 32.1 g/dl (32-36); Mean Corpuscular Hemoglobin 25.8 pg (26-34); Mean Corpuscular Volume 80.3 fl (80-100); Mean Platelet Volume 8.9 fl (7.4-10.4); Monocytes Absolute Auto 0.6 K/mm3 (0.1-0.6); Monocytes Percent Auto 7.5 % (2.6-8.5); Neutrophils Absolute Auto 4.9 K/mm3 (1.3-6.7); Neutrophils Percent Auto 66.6 % (45.5-73.1); Platelet Count Result 602 k/mm3 (150-375); Red Blood Count 3.76 M/mm3 (4.2-5.4); Red Cell Distribution Width 13.5 % (11.5-14.5); White Blood Count 7.4 K/mm3 (4.5-10.0)
[2021-12-26 13:48] LABS: Alanine Aminotransferase 13 U/L (6-35); Alkaline Phosphatase 42 U/L (38-126); Anion Gap 8 mmol/L (8-16); Aspartate Amino Transferase 24 U/L (14-36); Bilirubin,Total 0.5 mg/dL (0.2-1.3); Blood Urea Nitrogen 2 mg/dL (7-17); Calcium 7.2 mg/dL (8.4-10.2); Carbon Dioxide 22 mmol/L (22-30); Chloride 109 mmol/L (98-107); Estimated CRCL calculation 171 ml/min; Estimated Glomerular Filt Rate > 60; Glucose 70 mg/dL (65-110); Magnesium 1.6 mg/dL (1.6-2.3); Potassium 3.2 mmol/L (3.4-5.0); Sodium 139 mmol/L (137-145)
[2021-12-26 13:49] LABS: Partial Thromboplastin Time 29.7 SECONDS (22.3-36.8)
[2021-12-26 13:55] LABS: Transferrin 143 mg/dL (206-381)
[2021-12-26 14:00] VITALS: BP 122/93; PULSE 78; RESP 18; TEMP 36.3; O2SAT 99
[2021-12-26] MEDS: AMINO ACIDS 5%/D15W/E-LYTES/CA 2,000 ML with MULTIVITAMINS-12 INJ VIAL 1 2.5 ML, MULTIV... 40 ML IV CONT (15:32)
[2021-12-26] MEDS: FAT EMULSIONS IV 20% 250 ML 20.83 ML IVPB (15:33)
[2021-12-26] MEDS: CENTRAL LINE FLUSH 10 ML IV PUSH ×2 (15:33→22:35)
[2021-12-26 18:28] LABS: Glucose Point of Care 103 mg/dl (65-105)
[2021-12-26 21:40] VITALS: BP 126/64; PULSE 68; RESP 16; TEMP 36.1; O2SAT 100
[2021-12-27 02:08] LABS: Glucose Point of Care 125 mg/dl (65-105)
[2021-12-27] MEDS: SODIUM CHLORIDE 0.9% IV 1,000 ML 125 ML IV CONT ×2 (02:34→12:20)
[2021-12-27] MEDS: ONDANSETRON INJ 4 MG/2 ML VIAL IV PUSH ×3 (04:07→15:33)
[2021-12-27 05:51] VITALS: BP 137/88; PULSE 79; RESP 16; TEMP 36.4; O2SAT 100
[2021-12-27] MEDS: CENTRAL LINE FLUSH 10 ML IV PUSH ×3 (06:28→21:59)
[2021-12-27 06:51] LABS: Anion Gap 5 mmol/L (8-16); Blood Urea Nitrogen 3 mg/dL (7-17); Calcium 8.3 mg/dL (8.4-10.2); Carbon Dioxide 28 mmol/L (22-30); Chloride 103 mmol/L (98-107); Estimated CRCL calculation 171 ml/min; Estimated Glomerular Filt Rate > 60; Glucose 143 mg/dL (65-110); Phosphorus 4.6 mg/dL (2.5-4.5); Potassium 3.9 mmol/L (3.4-5.0); Sodium 136 mmol/L (137-145)
--- NOTE | 2021-12-27 07:55 | PM.IMPN ---
Progress Note: A&P Assessment and Plan (1) Acute pancreatitis: Code(s): K85.90 - Acute pancreatitis without necrosis or infection, unspecified Status: Acute Assessment and Plan: Recurrent, had recent admission for same Lipase was normal on discharge 12/18/21, now elevated again completed Augmentin course started on 12/18/21 NPO, IVF, pain control, anti emetics 12/26: Imaging shows pseudocyst versus necrotic collection of fluid, started on Primaxin, transfer to facility with hepatobiliary support pending, maintain NPO, IV fluids, PICC line being placed for TPN 12/27: No change, awaiting bed at [facility], accepted by GI and hospital team there. (2) Cholelithiasis: Code(s): K80.20 - Calculus of gallbladder without cholecystitis without obstruction Status: Acute Assessment and Plan: Cholelithiasis is present without symptoms of cholecystitis, appreciate surgery consultation, suspect this is contributing to patient's pancreatitis, patient will need to have her gallbladder removed to prevent recurrences, currently there are no signs of choledocholithiasis, however (3) Morbid obesity: Code(s): E66.01 - Morbid (severe) obesity due to excess calories Status: Acute (4) Hypertension: Code(s): I10 - Essential (primary) hypertension Status: Acute Assessment and Plan: Amlodipine held while NPO, blood pressure stable (5) Chronic anemia: Code(s): D64.9 - Anemia, unspecified Status: Acute Assessment and Plan: Pt found to be anemic on last admission, and was started on Iron supplementation Hgb has increased from 9.4-->11.0 over the past 6 days and she appears stable with her CBC and RBC indices Continue home iron supplementation (6) Elevated platelet count: Code(s): R79.89 - Other specified abnormal findings of blood chemistry Status: Acute Assessment and Plan: Suspect elevated platelets are reactive, monitor (7) Hypokalemia: Code(s): E87.6 - Hypokalemia Status: Acute Assessment and Plan: Replace with 40 mEq IVPB, recheck tomorrow Subjective Date/time seen: 12/27/21 07:55 Interval history: Patient does complain of frequent urination requesting to have her IV fluids decreased a bit if possible. She also states she is having hard time sleeping here due to all the noises and requested a sleeping aid for tonight. No overnight events noted. No chest pain or shortness of breath. No nausea, vomiting or diarrhea. No fevers or chills. Symptoms seem somewhat improved from yesterday. Review of Systems Review of Systems: 12 point review of systems was assessed and was negative except as noted in the HPI Exam Narrative: General: No acute distress, alert and oriented per baseline HEENT: Atraumatic, normocephalic, mucous membranes moist CV: Regular rate and rhythm, S1, S2 no murmurs rubs or gallops noted Lungs: Clear to auscultation bilaterally, no rales or crackles noted, no wheezes, good air entry Abdomen: Soft, somewhat tender in the epigastric and right upper quadrant areas, no rebounding or guarding Extremities: Normal to inspection Skin: No rashes noted, no lesions or wounds seen Psych: Euthymic, normal affect Neuro: Cranial nerves 2-12 grossly intact, strength +5/5 upper and lower extremities bilaterally Objective Data Vital Signs Vital Signs: Vital Signs - 24 hr 12/26/21 09:15 12/26/21 14:00 12/26/21 21:40 Temperature 97.4 F L 96.9 F L Pulse Rate 78 68 Respiratory Rate 18 16 Blood Pressure 122/93 H 126/64 Pulse Oximetry 99 100 Oxygen Delivery Room Air 12/27/21 05:51 Temperature 97.6 F Pulse Rate 79 Respiratory Rate 16 Blood Pressure 137/88 Pulse Oximetry 100 Oxygen Delivery Intake/Output Intake/Output: Intake & Output 12/24/21 12/25/21 12/26/21 12/27/21 23:59 23:59 23:59 23:59 Intake Total 1000 2000 3300 1100 Output
--- NOTE | 2021-12-27 08:38 | WPDGIPROGNO ---
Progress Note: A&P Assessment and Plan (1) Acute necrotizing pancreatitis: Code(s): K85.91 - Acute pancreatitis with uninfected necrosis, unspecified Status: Acute Assessment and Plan: Patient with acute necrotizing pancreatitis. Appears to be on the basis of gallstones. At present only mild left upper quadrant abdominal pain. Lipase is improving down to 390 yesterday. Would recommend continuing pain control as necessary. we will continue NPO status for now and gradually reintroduce diet. Cholecystectomy is advised after resolution pancreatitis. Surgery is on case and following with us. (2) Chronic anemia: Code(s): D64.9 - Anemia, unspecified Status: Acute Assessment and Plan: Chronic anemia identified. No signs of GI blood loss. (3) Cholelithiasis: Code(s): K80.20 - Calculus of gallbladder without cholecystitis without obstruction Status: Acute Assessment and Plan: Gallstones evident. Appear to be etiology recent pancreatitis. (4) Morbid obesity: Code(s): E66.01 - Morbid (severe) obesity due to excess calories Status: Acute Assessment and Plan: Patient is obese. Long-term weight loss is advised Subjective Date/time seen: 12/27/21 08:[address] Jett is absence. Patient alert comfortable this morning. notes frequent urination. Has some mild left upper quadrant discomfort. Review of Systems Review of Systems: Review of systems noncontributory. Exam Narrative: Physical exam reveals patient be alert. Vital signs are stable. HEENT exam reveals no icterus. Lungs are clear to auscultation and percussion. Heart is without murmur or extra sounds. Abdomen is obese. Bowel sounds are present soft mild left upper quadrant discomfort. Extremities are without clubbing cyanosis or edema. Objective Data Vital Signs Vital Signs: Vital Signs - 24 hr 12/26/21 09:15 12/26/21 14:00 12/26/21 21:40 Temperature 97.4 F L 96.9 F L Pulse Rate 78 68 Respiratory Rate 18 16 Blood Pressure 122/93 H 126/64 Pulse Oximetry 99 100 Oxygen Delivery Room Air 12/27/21 05:51 Temperature 97.6 F Pulse Rate 79 Respiratory Rate 16 Blood Pressure 137/88 Pulse Oximetry 100 Oxygen Delivery Intake/Output Intake/Output: Intake & Output 12/24/21 12/25/21 12/26/21 12/27/21 23:59 23:59 23:59 23:59 Intake Total 1000 2000 3300 1100 Output Total 650 3600 Balance 1000 1350 -300 1100 Meds/Results Medications: Active Medications Generic Name Dose Route Start Last Admin Trade Name Freq PRN Reason Stop Dose Admin Dextrose 12.5 gm 12/26/21 11:34 Dextrose 50% 25 Gm/50 Ml Syringe IV PUSH PRN PRN Hypoglycemia Protocol Enoxaparin Sodium 40 mg 12/25/21 09:00 12/26/21 08:41 Enoxaparin 40 Mg/0.4 Ml Syringe SUB-Q 40 mg DAILY KIARA Administration Glucagon 1 mg 12/26/21 11:34 Glucagon For Inj 1 Mg Vial IM PRN PRN Hypoglycemia Protocol Glucose 15 gm 12/26/21 11:34 Glucose Oral Gel 15 Gm Of Glucse In 37.5 Gm Tube PO PRN PRN Hypoglycemia Protocol Hydromorphone HCl 0.5 mg 12/24/21 18:10 12/26/21 08:41 Hydromorphone Hcl Inj (*Crx) 1 Mg/Ml Syr IV PUSH 0.5 mg Q4H PRN Administration Pain Rated 7-10 Sodium Chloride 1,000 mls @ 125 mls/hr 12/24/21 18:10 12/27/21 02:34 Normal Saline Iv IV CONT 125 mls/hr .Q8H KIARA Administration Imipenem/Cilastatin Sodium 500 mg in 100 mls @ 300 mls/hr 12/26/21 12:00 12/27/21 06:28 Primaxin 500 Mg/Ns 100 Ml IVPB 100 mls/hr Q6HR KIARA Administration Dextrose 1,000 mls @ 50 mls/hr 12/26/21 14:23 Dextrose 10% IV CONT .Q20H PRN if PN is interrupted Multivitamins 2.5 ml/ 2,005 mls @ 40 mls/hr 12/26/21 15:00 12/26/21 15:32 Multivitamins 2.5 ml/ Amino IV CONT 40 mls/hr Acids/Electrolytes/Dextrose .Q24H KIARA Administration Protocol Fat Emulsion Intravenous 250 m
[2021-12-27 08:41] LABS: Glucose Point of Care 143 mg/dl (65-105)
[2021-12-27] MEDS: POTASSIUM CHLORIDE INJ 40 MEQ in SODIUM CHLORIDE 0.9% IV 500 ML 130 MEQ IVPB (08:43)
[2021-12-27] MEDS: PANTOPRAZOLE SODIUM IV 40 MG VIAL IV PUSH (08:43)
[2021-12-27] MEDS: ENOXAPARIN 40 MG/0.4 ML SYRINGE SUB-Q (08:43)
[2021-12-27 09:31] LABS: Lactate Dehydrogenase 674 U/L (313-618); Lactic Acid Reflex 0.9 mmol/L (0.7-2.0)
[2021-12-27 09:40] LABS: Lipase 331 U/L (23-300)
[2021-12-27 09:47] LABS: CRP 12.4 mg/dL (<1.0)
[2021-12-27 10:17] LABS: Procalcitonin 0.1 ng/mL
[2021-12-27 11:41] LABS: Glucose Point of Care 118 mg/dl (65-105)
[2021-12-27 14:00] VITALS: BP 135/78; PULSE 80; RESP 18; TEMP 35.6; O2SAT 99
[2021-12-27 14:00] LABS: Triglycerides 110 mg/dL (<150)
[2021-12-27] MEDS: AMINO ACIDS 5%/D15W/E-LYTES/CA 2,000 ML with MULTIVITAMINS-12 INJ VIAL 1 2.5 ML, MULTIV... 40 ML IV CONT (15:31)
[2021-12-27] MEDS: FAT EMULSIONS IV 20% 250 ML 20.83 ML IVPB (15:31)
[2021-12-27 16:31] LABS: Glucose Point of Care 114 mg/dl (65-105)
--- NOTE | 2021-12-27 17:51 | PM.PNGS ---
Progress Note: A&P Assessment and Plan (1) Acute pancreatitis: Code(s): K85.90 - Acute pancreatitis without necrosis or infection, unspecified Status: Acute Assessment and Plan: Today patient symptomatically is significantly better but she has been NPO. (on bowel rest on purpose). She is still needing to take some pain medicine periodically. Denies nausea or vomiting overnight. Has had 1 bowel movement since arriving in the hospital this time. ? I have gotten to review the report on this patient's CT of the abdomen with contrast.? It reveals probable gradual formation of a pseudocyst or perhaps an area of necrosis of the pancreas.? In view of this recurrent apparent severe pancreatitis with pain but no signs of current infection would recommend placement of a PICC line and then TPN in keeping the patient NPO.? have now started TPN ( Clinimix ) through PICC line which was placed yesterday. I believe she would be best cared for in a tertiary care center where there is a hepatobiliary surgeon to follow her and decide whether not she needs intervention surgically for this abnormal pancreas and therefore have all the tools prepared to do that.? Then if that is needed she could have a laparoscopic or open cholecystectomy at the time that intervention is done for the pancreas.? ? I have related this to the hospitalist, & Dr.Fedder hanson they agree to transfer to a higher level of care.? ( discussed with Dr. Reinaldo guzman today and she had called saying [facility] again to see if there was a bed this morning there was not). Patient's lipase still around 331 today.? For now until transfer continue NPO status with parental nutrition and antibiotics to try to prevent infection of this area of necrosis in the pancreas which can be a very severe problem.. (2) Morbid obesity: Code(s): E66.01 - Morbid (severe) obesity due to excess calories Status: Acute Assessment and Plan: This contributes to making her a difficult surgery and patient for treatment of a pancreatitis (3) Chronic anemia: Code(s): D64.9 - Anemia, unspecified Status: Acute Assessment and Plan: unknown etiology (4) Hypertension: Code(s): I10 - Essential (primary) hypertension Status: Acute Assessment and Plan: as per hospitalist. Subjective Subjective Date/Time Seen: 12/27/21 09:51 Patient reports: feels better, still having pain ( mainly left subcostal), pain is less and other ( poor sleep) Interval history: no real nausea today but she understands why we were not advancing her diet. (Need bowel rest) Review of Systems Review of Systems: All systems reviewed & are unremarkable except as noted in HPI and below Constitutional: Constitutional: Reports as per HPI, Denies chills and Denies fever(s) Cardiovascular: Cardiovascular: Denies chest pain and Denies dyspnea Respiratory: Respiratory: Reports no additional respiratory complaints and Denies dyspnea Gastrointestinal: Gastrointestinal: Reports as per HPI and Denies bloating Musculoskeletal: Musculoskeletal: Reports no additional musculoskeletal complaints Neurologic: Denies memory loss Psychiatric: Psychiatric: Denies anxiety and Denies memory loss Exam Const: General: cooperative, alert and awake Orientation/consciousness: patient oriented x3 HENMT: Head: normal to inspection Mouth: Yes moist mucous membranes Eyes: Sclera: sclerae normal Pupils: Equal, round and reactive pupils present Neck: Neck: normal visual inspection and no JVD Chest: Chest palpation & inspection: normal inspection of the chest Resp: Effort & Inspection: normal respiratory effort Auscultation: clear to auscultation bilaterally Cardio: Jugular venous distension: no JVD Rate: regular rate GI: Inspection: normal to inspection, Pannus present and no visible herniation GI Palp: Yes abdominal tenderness (Mainly above the level of the umbil
[2021-12-27] MEDS: diphenhydrAMINE HCl INJ 50 MG/ML VIAL IV PUSH (21:58)
[2021-12-27 22:00] VITALS: BP 137/58; PULSE 82; RESP 16; TEMP 36; O2SAT 100
[2021-12-28] MEDS: CENTRAL LINE FLUSH 10 ML IV PUSH ×3 (05:52→20:00)
[2021-12-28 06:00] VITALS: BP 121/59; PULSE 93; RESP 17; TEMP 35.8; O2SAT 100
[2021-12-28 06:38] LABS: Alanine Aminotransferase 13 U/L (6-35); Albumin Level 3.5 g/dL (3.5-5.1); Alkaline Phosphatase 64 U/L (38-126); Anion Gap 5 mmol/L (8-16); Aspartate Amino Transferase 28 U/L (14-36); Bilirubin,Total 0.4 mg/dL (0.2-1.3); Blood Urea Nitrogen 3 mg/dL (7-17); Calcium 8.7 mg/dL (8.4-10.2); Carbon Dioxide 30 mmol/L (22-30); Chloride 103 mmol/L (98-107); Estimated CRCL calculation 145 ml/min; Estimated Glomerular Filt Rate > 60; Glucose 140 mg/dL (65-110); Phosphorus 5.4 mg/dL (2.5-4.5); Potassium 3.9 mmol/L (3.4-5.0); Sodium 138 mmol/L (137-145)
[2021-12-28 06:45] LABS: Basophils Absolute Auto 0.1 K/mm3 (0.0-0.1); Basophils Percent Auto 0.8 % (0.2-1.2); Eosinophils Absolute Auto 0.1 K/mm3 (0-0.3); Eosinophils Percent Auto 2.3 % (0-4.4); Hematocrit 30.8 % (37.0-47.0); Hemoglobin 9.4 g/dL (12.0-15.0); Immature Granulocyte Absolute 0.02 K/mm3 (0.00-0.031); Immature Granulocyte Percent A 0.3 % (0-0.5); Lymphocytes Percent Auto 19.6 % (18.3-44.2); Mean Corpuscular HGB Conc 30.5 g/dl (32-36); Mean Corpuscular Hemoglobin 25.5 pg (26-34); Mean Corpuscular Volume 83.5 fl (80-100); Monocytes Absolute Auto 0.5 K/mm3 (0.1-0.6); Monocytes Percent Auto 8.8 % (2.6-8.5); Neutrophils Absolute Auto 4.2 K/mm3 (1.3-6.7); Neutrophils Percent Auto 68.2 % (45.5-73.1); Platelet Count Result 567 k/mm3 (150-375); Red Blood Count 3.69 M/mm3 (4.2-5.4); Red Cell Distribution Width 13.6 % (11.5-14.5); Transferrin 171 mg/dL (206-381); White Blood Count 6.1 K/mm3 (4.5-10.0)
[2021-12-28 07:48] LABS: INR 1.3; Prothrombin Time 15.2 Seconds (11.1-14.7)
[2021-12-28 07:49] LABS: Partial Thromboplastin Time 31.6 SECONDS (22.3-36.8)
[2021-12-28 08:24] LABS: Appearance Urine Clear (Clear); Bilirubin Urine Negative (Negative); Blood Urine Negative (Negative); Color Urine Yellow (Yellow); Glucose Urine UA Negative (Negative); Ketones Urine Negative (Negative); Leukocyte Esterase Ur Negative LEU/UL (NEGATIVE); Nitrate Urine Negative (Negative); Protein Urine Negative (Negative); Specific Grav Ur 1.015 (1.001-1.035); Urobilinogen Urine 0.2 mg/dL (<2.0); pH Urine 7.5 (5.0-9.0)
[2021-12-28] MEDS: ENOXAPARIN 40 MG/0.4 ML SYRINGE SUB-Q (08:57)
[2021-12-28] MEDS: PANTOPRAZOLE SODIUM IV 40 MG VIAL IV PUSH (08:57)
[2021-12-28 09:03] LABS: Add Urine Microscopic? NO
--- NOTE | 2021-12-28 10:50 | PM.IMPN ---
Progress Note: A&P Assessment and Plan (1) Acute pancreatitis: Code(s): K85.90 - Acute pancreatitis without necrosis or infection, unspecified Status: Acute Assessment and Plan: Recurrent, had recent admission for same Lipase was normal on discharge 12/18/21, now elevated again completed Augmentin course started on 12/18/21 NPO, IVF, pain control, anti emetics Awaiting for transfer to [facility] (2) Cholelithiasis: Code(s): K80.20 - Calculus of gallbladder without cholecystitis without obstruction Status: Acute Assessment and Plan: Cholelithiasis is present without symptoms of cholecystitis, appreciate surgery consultation, suspect this is contributing to patient's pancreatitis, patient will need to have her gallbladder removed to prevent recurrences, currently there are no signs of choledocholithiasis, however (3) Morbid obesity: Code(s): E66.01 - Morbid (severe) obesity due to excess calories Status: Acute (4) Hypertension: Code(s): I10 - Essential (primary) hypertension Status: Acute Assessment and Plan: Amlodipine held while NPO, blood pressure stable (5) Chronic anemia: Code(s): D64.9 - Anemia, unspecified Status: Acute Assessment and Plan: Pt found to be anemic on last admission, and was started on Iron supplementation Hgb has increased from 9.4-->11.0 over the past 6 days and she appears stable with her CBC and RBC indices Continue home iron supplementation (6) Elevated platelet count: Code(s): R79.89 - Other specified abnormal findings of blood chemistry Status: Acute Assessment and Plan: Suspect elevated platelets are reactive, monitor (7) Hypokalemia: Code(s): E87.6 - Hypokalemia Status: Acute Assessment and Plan: Replace with 40 mEq IVPB, recheck tomorrow Subjective Date/time seen: 12/28/21 10:50 No complaints Exam Narrative: General: No acute distress, alert and oriented per baseline HEENT: Atraumatic, normocephalic, mucous membranes moist CV: Regular rate and rhythm, S1, S2 no murmurs rubs or gallops noted Lungs: Clear to auscultation bilaterally, no rales or crackles noted, no wheezes, good air entry Abdomen: Soft, somewhat tender in the epigastric and right upper quadrant areas, no rebounding or guarding Extremities: Normal to inspection Skin: No rashes noted, no lesions or wounds seen Psych: Euthymic, normal affect Neuro: Cranial nerves 2-12 grossly intact, strength +5/5 upper and lower extremities bilaterally Const: General: uncomfortable Other: Morbidly obese HENMT: General nose exam: Normal nares present Mouth: Yes moist mucous membranes Eyes: General: appearance normal, both eyes and all related structures Sclera: sclerae normal Pupils: Equal, round and reactive pupils present EOM: EOMs intact bilaterally Neck: Neck: supple and no JVD Lymphatic: lymphadenopathy not noted Chest: Other: Not tender to palpation Resp: Effort & Inspection: normal respiratory effort Auscultation: clear to auscultation bilaterally Cardio: Rate: tachycardic Rhythm: regular rhythm Heart sounds: no gallops, no murmurs and no rubs GI: Inspection: non-distended Skin: General skin exam: normal color and no rashes or lesions noted Wounds: no wounds Neuro: General: gait normal Cranial nerves: Yes Equal, round and reactive pupils present Speech: normal speech Motor exam (neuro): 5/5 motor strength present throughout and Normal motor muscle tone present throughout Sensory Exam: normal sensation Extrem: General: normal to inspection, no edema and no pedal edema Other: MAEW and without deficit Psych: Mental Status: mental status grossly normal Affect: normal affect Objective Data Vital Signs Vital Signs: Vital Signs - 24 hr 12/27/21 14:00 12/27/21 22:00 12/28/21 06:00 Temperature 96.1 F L 96.8 F L 96.4 F L Pulse Rate 80 82 93
[2021-12-28] MEDS: ONDANSETRON INJ 4 MG/2 ML VIAL IV PUSH ×3 (11:43→19:58)
[2021-12-28 11:46] VITALS: BMI 48.5
[2021-12-28 12:41] LABS: Glucose Point of Care 114 mg/dl (65-105)
--- NOTE | 2021-12-28 13:31 | WPDGIPROGNO ---
Progress Note: A&P Assessment and Plan (1) Acute necrotizing pancreatitis: Code(s): K85.91 - Acute pancreatitis with uninfected necrosis, unspecified Status: Acute Assessment and Plan: She has acute necrotic collection around the pancreas measuring 12.3 x 4.9 cm, pain is improved started on tpn, no fever and no more nausea agree that will be better off at tertiary center, may need EUS to assess if evolving collection can be drainable or just treated medically (2) Chronic anemia: Code(s): D64.9 - Anemia, unspecified Status: Acute Assessment and Plan: stable (3) Cholelithiasis: Code(s): K80.20 - Calculus of gallbladder without cholecystitis without obstruction Status: Acute Assessment and Plan: will need interval cholecystectomy (4) Morbid obesity: Code(s): E66.01 - Morbid (severe) obesity due to excess calories Status: Acute Subjective Date/time seen: 12/28/21 13:31 Interval history: overall better, only minimal abdominal pain, no nausea. on TPN Review of Systems Review of Systems: Review of systems noncontributory. Exam Const: General: comfortable HENMT: General nose exam: Normal nares present Eyes: General: appearance normal, both eyes and all related structures Neck: Neck: supple Resp: Auscultation: clear to auscultation bilaterally Cardio: Rate: regular rate GI: GI Palp: Yes Soft to palpation and No Tenderness to palpation present (GI) Skin: General skin exam: normal color Neuro: Speech: normal speech Extrem: General: normal to inspection Psych: Mental Status: mental status grossly normal Objective Data Vital Signs Vital Signs: Vital Signs - 24 hr 12/27/21 14:00 12/27/21 22:00 12/28/21 06:00 Temperature 96.1 F L 96.8 F L 96.4 F L Pulse Rate 80 82 93 Respiratory Rate 18 16 17 Blood Pressure 135/78 137/58 L 121/59 L Pulse Oximetry 99 100 100 Oxygen Delivery 12/28/21 08:50 Temperature Pulse Rate Respiratory Rate Blood Pressure Pulse Oximetry Oxygen Delivery Room Air Intake/Output Intake/Output: Intake & Output 12/25/21 12/26/21 12/27/21 12/28/21 23:59 23:59 23:59 23:59 Intake Total 1999 3300 4755 400 Output Total 650 3600 1150 1050 Balance 1350 -300 3605 -650 Meds/Results Medications: Active Medications Generic Name Dose Route Start Last Admin Trade Name Freq PRN Reason Stop Dose Admin Dextrose 12.5 gm 12/26/21 11:34 Dextrose 50% 25 Gm/50 Ml Syringe IV PUSH PRN PRN Hypoglycemia Protocol Enoxaparin Sodium 40 mg 12/25/21 09:00 12/28/21 08:57 Enoxaparin 40 Mg/0.4 Ml Syringe SUB-Q 40 mg DAILY KIARA Administration Glucagon 1 mg 12/26/21 11:34 Glucagon For Inj 1 Mg Vial IM PRN PRN Hypoglycemia Protocol Glucose 15 gm 12/26/21 11:34 Glucose Oral Gel 15 Gm Of Glucse In 37.5 Gm Tube PO PRN PRN Hypoglycemia Protocol Hydromorphone HCl 0.5 mg 12/24/21 18:10 12/26/21 08:41 Hydromorphone Hcl Inj (*Crx) 1 Mg/Ml Syr IV PUSH 0.5 mg Q4H PRN Administration Pain Rated 7-10 Imipenem/Cilastatin Sodium 500 mg in 100 mls @ 300 mls/hr 12/26/21 12:00 12/28/21 12:44 Primaxin 500 Mg/Ns 100 Ml IVPB Infused Q6HR KIARA Infusion Dextrose 1,000 mls @ 50 mls/hr 12/26/21 14:23 Dextrose 10% IV CONT .Q20H PRN if PN is interrupted Multivitamins 2.5 ml/ 2,005 mls @ 40 mls/hr 12/26/21 15:00 12/27/21 15:31 Multivitamins 2.5 ml/ Amino IV CONT 40 mls/hr Acids/Electrolytes/Dextrose .Q24H KIARA Administration Protocol Fat Emulsion Intravenous 250 mls @ 20.833 mls/hr 12/26/21 15:00 12/27/21 15:31 Lipids 20% IVPB 20.83 mls/hr Q24H KIARA Administration Acetaminophen 1,000 mg in 100 mls @ 400 mls/hr 12/27/21 16:52 12/28/21 09:19 Ofirmev 1,000 Mg Ivpb IVPB 12/28/21 16:51 Infused Q8H PRN Infusion Pain Rated 1-3 Insulin Aspart 2 - 5 units 12/28/21 12:00 12/28/21 12:51
[2021-12-28 14:00] VITALS: BP 145/85; PULSE 75; RESP 14; TEMP 35.8; O2SAT 99
--- NOTE | 2021-12-28 15:33 | PM.PNGS ---
Progress Note: A&P Assessment and Plan (1) Acute pancreatitis: Code(s): K85.90 - Acute pancreatitis without necrosis or infection, unspecified Status: Acute Assessment and Plan: CT showed acute necrotizing pancreatitis with formation of a pseudocyst or necrotic collection. We would still recommend transfer to a tertiary care center where she can be evaluated by a hepatobiliary surgeon, therefore if she required further surgical intervention for the necrotizing pancreatitis and fluid collection, then they could potentially do a cholecystectomy at that time. Continue TPN/Clinimix, bowel rest, and analgesics as needed. Repeat labs with lipase tomorrow. Await transfer/bed availability. (2) Morbid obesity: Code(s): E66.01 - Morbid (severe) obesity due to excess calories Status: Acute (3) Chronic anemia: Code(s): D64.9 - Anemia, unspecified Status: Acute (4) Hypertension: Code(s): I10 - Essential (primary) hypertension Status: Acute Plan I have discussed the patient's case and plan of care with Dr. Monzon. Subjective Subjective Date/Time Seen: 12/28/21 11:33 Patient reports: no new complaints, flatus, bowel movement (this morning) and afebrile Interval history: This is a 26 year old who was recently admitted with necrotizing pancreatitis and found to have gallstones, who was discharged home and returned back to the ER with abdominal pain. She was found to have an elevated lipase and her CT abdomen/pelvis showed acute necrotizing pancreatitis with formation of a peripancreatic fluid collection or necrotic collection. She has been admitted and started on TPN with a PICC line. She is awaiting transfer to a tertiary care facility for further evaluation by a hepatobiliary surgeon. Chart reviewed. Patient seen and examined. She reports feeling about the same as when she came into the ER. Still having some very mild discomfort in the left upper quadrant. Reports intermittent nausea that is mild, but no vomiting. Review of Systems Review of Systems: All systems reviewed & are unremarkable except as noted in HPI and below Exam Const: General: comfortable, no acute distress and awake Nutritional Appearance: obese Orientation/consciousness: patient oriented x3 GI: Inspection: Pannus present and obesity GI Palp: Yes Soft to palpation, Yes Tenderness to palpation present (GI) (TTP epigastric and LUQ), No Guarding due to palpation present (GI), Yes No hepatosplenomegaly present and No Rebound tenderness present Auscultation: normal bowel sounds Psych: Mental Status: mental status grossly normal Thought process: Normal thought process present Objective Data Vital Signs Vital Signs: Vital Signs - 24 hr 12/27/21 22:00 12/28/21 06:00 12/28/21 08:50 Temperature 96.8 F L 96.4 F L Pulse Rate 82 93 Respiratory Rate 16 17 Blood Pressure 137/58 L 121/59 L Pulse Oximetry 100 100 Oxygen Delivery Room Air 12/28/21 14:00 Temperature 96.5 F L Pulse Rate 75 Respiratory Rate 14 Blood Pressure 145/85 H Pulse Oximetry 99 Oxygen Delivery Intake/Output Intake/Output: Intake & Output 12/25/21 12/26/21 12/27/21 12/28/21 23:59 23:59 23:59 23:59 Intake Total 1999 3300 4755 400 Output Total 650 3600 1150 1050 Balance 1350 -300 3605 -650 Meds/Results Medications: Active Medications Generic Name Dose Route Start Last Admin Trade Name Freq PRN Reason Stop Dose Admin Dextrose 12.5 gm 12/26/21 11:34 Dextrose 50% 25 Gm/50 Ml Syringe IV PUSH PRN PRN Hypoglycemia Protocol Enoxaparin Sodium 40 mg 12/25/21 09:00 12/28/21 08:57 Enoxaparin 40 Mg/0.4 Ml Syringe SUB-Q 40 mg DAILY KIARA Administration Glucagon 1 mg 12/26/21 11:34 Glucagon For Inj 1 Mg Vial IM PRN PRN Hypoglycemia Protocol Glucose 15 gm 12/26/21 11:34 Glucose Oral Gel 15 Gm Of Glucse In 37.5 Gm Tube PO PRN PRN Hypoglycemia Protoc
[2021-12-28] MEDS: FAT EMULSIONS IV 20% 250 ML 20.83 ML IVPB (15:56)
[2021-12-28] MEDS: AMINO ACIDS 5%/D15W/E-LYTES/CA 2,000 ML with MULTIVITAMINS-12 INJ VIAL 1 2.5 ML, MULTIV... 40 ML IV CONT (15:56)
[2021-12-28] MEDS: SODIUM CHLORIDE 0.9% IV 1,000 ML 60 ML IV CONT (17:50)
[2021-12-28 18:49] LABS: Glucose Point of Care 114 mg/dl (65-105)
[2021-12-28 22:00] VITALS: BP 138/83; PULSE 86; RESP 18; TEMP 37.1; O2SAT 100
[2021-12-28] MEDS: MELATONIN 3 MG TABLET PO (23:08)
[2021-12-28 23:15] LABS: Glucose Point of Care 116 mg/dl (65-105)
[2021-12-29] MEDS: CENTRAL LINE FLUSH 10 ML IV PUSH ×3 (05:17→22:18)
[2021-12-29 05:32] LABS: Hematocrit 30.4 % (37.0-47.0); Hemoglobin 9.3 g/dL (12.0-15.0); Mean Corpuscular HGB Conc 30.6 g/dl (32-36); Mean Corpuscular Hemoglobin 25.5 pg (26-34); Mean Corpuscular Volume 83.3 fl (80-100); Mean Platelet Volume 8.8 fl (7.4-10.4); Platelet Count Result 525 k/mm3 (150-375); Red Blood Count 3.65 M/mm3 (4.2-5.4); Red Cell Distribution Width 13.5 % (11.5-14.5); White Blood Count 5.5 K/mm3 (4.5-10.0)
[2021-12-29 05:42] LABS: Alanine Aminotransferase 14 U/L (6-35); Albumin Level 3.6 g/dL (3.5-5.1); Alkaline Phosphatase 65 U/L (38-126); Anion Gap 8 mmol/L (8-16); Aspartate Amino Transferase 34 U/L (14-36); Bilirubin,Total 0.4 mg/dL (0.2-1.3); Blood Urea Nitrogen 3 mg/dL (7-17); Calcium 8.7 mg/dL (8.4-10.2); Carbon Dioxide 29 mmol/L (22-30); Chloride 101 mmol/L (98-107); Estimated CRCL calculation 145 ml/min; Estimated Glomerular Filt Rate > 60; Glucose 138 mg/dL (65-110); Lipase 719 U/L (23-300); Phosphorus 5.9 mg/dL (2.5-4.5); Potassium 3.6 mmol/L (3.4-5.0); Sodium 138 mmol/L (137-145)
[2021-12-29 06:00] VITALS: BP 126/86; PULSE 91; RESP 18; TEMP 36.7; O2SAT 98
[2021-12-29] MEDS: PANTOPRAZOLE SODIUM IV 40 MG VIAL IV PUSH (08:36)
[2021-12-29] MEDS: ENOXAPARIN 40 MG/0.4 ML SYRINGE SUB-Q (08:36)
[2021-12-29] MEDS: ONDANSETRON INJ 4 MG/2 ML VIAL IV PUSH ×2 (08:36→22:18)
[2021-12-29 11:26] LABS: Glucose Point of Care 122 mg/dl (65-105)
--- NOTE | 2021-12-29 12:17 | PCNFU ---
Nutrition Follow-Up Complete: Inadequate po intake related to altered GI function as evidenced by NPO d/t pancreatitis, need for TPN for nutrition support. Goal: Meet 60-80% of nutritional needs via nutrition support Patient is progressing towards goal. We will continue current goal. Pt current nutrition is TPN. Last recorded weight is 118.6 kg, up from 116.6 kg on admit. Bowel Motility: +BM reported 12/28 Labs Reviewed: Glu 138, BUN 3, Hct 30.4,Hgb 9.3,Cr 0.6 Meds Noted:NS, Lovenox, Protonix, Zofran, Clinimix 5/15 at 40 ml/hr with 250 ml of 20% Lipid Emulsion. Skin: WNL Additional Notes: Patient remains on TPN providing 1180 kcals/48 gms protein. Meeting 69% kcal needs and 69% protein needs. NS at 60 ml/hr, Na 138 WNL. Will monitor fluids. Plans for transfer, awaiting bed availability. Agree with diet orders. Monitor TPN, wt, labs. Follow up every Tuesday and Tuesday.
--- NOTE | 2021-12-29 12:41 | WPDGIPROGNO ---
Progress Note: A&P Assessment and Plan (1) Acute necrotizing pancreatitis: Code(s): K85.91 - Acute pancreatitis with uninfected necrosis, unspecified Status: Acute Assessment and Plan: She has acute necrotic collection around the pancreas measuring 12.3 x 4.9 cm, pain is improved she is currently on tpn, no fever and no more nausea agree that will be better off at tertiary center, may need EUS to assess if evolving collection can be drainable or just treated medically should be ok to start clear liquid diet as tolerated in the meantime (2) Chronic anemia: Code(s): D64.9 - Anemia, unspecified Status: Acute Assessment and Plan: stable (3) Cholelithiasis: Code(s): K80.20 - Calculus of gallbladder without cholecystitis without obstruction Status: Acute Assessment and Plan: will need interval cholecystectomy (4) Morbid obesity: Code(s): E66.01 - Morbid (severe) obesity due to excess calories Status: Acute Subjective Date/time seen: 12/29/21 12:41 Interval history: no major changes, she is comfortable and thirsty Review of Systems Review of Systems: All systems reviewed & are unremarkable except as noted in HPI and below Exam Const: General: comfortable HENMT: General nose exam: Normal nares present Eyes: General: appearance normal, both eyes and all related structures Neck: Neck: supple Resp: Auscultation: clear to auscultation bilaterally Cardio: Rate: regular rate GI: GI Palp: Yes Soft to palpation and No Tenderness to palpation present (GI) Skin: General skin exam: normal color Neuro: Speech: normal speech Extrem: General: normal to inspection Psych: Mental Status: mental status grossly normal Objective Data Vital Signs Vital Signs: Vital Signs - 24 hr 12/28/21 14:00 12/28/21 22:00 12/29/21 06:00 Temperature 96.5 F L 98.7 F 98.1 F Pulse Rate 75 86 91 Respiratory Rate 14 18 18 Blood Pressure 145/85 H 138/83 126/86 Pulse Oximetry 99 100 98 Oxygen Delivery 12/29/21 08:30 Temperature Pulse Rate Respiratory Rate Blood Pressure Pulse Oximetry Oxygen Delivery Room Air Intake/Output Intake/Output: Intake & Output 12/26/21 12/27/21 12/28/21 12/29/21 23:59 23:59 23:59 23:59 Intake Total 3300 4755 2604 450 Output Total 3600 1150 1050 700 Balance -300 3605 1554 -250 Meds/Results Medications: Active Medications Generic Name Dose Route Start Last Admin Trade Name Freq PRN Reason Stop Dose Admin Dextrose 12.5 gm 12/26/21 11:34 Dextrose 50% 25 Gm/50 Ml Syringe IV PUSH PRN PRN Hypoglycemia Protocol Enoxaparin Sodium 40 mg 12/25/21 09:00 12/29/21 08:36 Enoxaparin 40 Mg/0.4 Ml Syringe SUB-Q 40 mg DAILY KIARA Administration Glucagon 1 mg 12/26/21 11:34 Glucagon For Inj 1 Mg Vial IM PRN PRN Hypoglycemia Protocol Glucose 15 gm 12/26/21 11:34 Glucose Oral Gel 15 Gm Of Glucse In 37.5 Gm Tube PO PRN PRN Hypoglycemia Protocol Hydromorphone HCl 0.5 mg 12/24/21 18:10 12/26/21 08:41 Hydromorphone Hcl Inj (*Crx) 1 Mg/Ml Syr IV PUSH 0.5 mg Q4H PRN Administration Pain Rated 7-10 Dextrose 1,000 mls @ 50 mls/hr 12/26/21 14:23 Dextrose 10% IV CONT .Q20H PRN if PN is interrupted Multivitamins 2.5 ml/ 2,005 mls @ 40 mls/hr 12/26/21 15:00 12/28/21 15:56 Multivitamins 2.5 ml/ Amino IV CONT 40 mls/hr Acids/Electrolytes/Dextrose .Q24H KIARA Administration Protocol Fat Emulsion Intravenous 250 mls @ 20.833 mls/hr 12/26/21 15:00 12/29/21 03:57 Lipids 20% IVPB Infused Q24H KIARA Infusion Sodium Chloride 1,000 mls @ 60 mls/hr 12/28/21 16:20 12/28/21 17:50 Normal Saline Iv IV CONT 60 mls/hr .[id number] KIARA Administration Piperacillin/Tazobactam/Dextrose 3.375 gm in 50 mls @ 100 mls/hr 12/29/21 12:00 Zosyn 3.375 Gm/D5w 50ml Pm IVPB Q6H KIARA Insulin Aspart 2 - 5 units 12/28
[2021-12-29] MEDS: SODIUM CHLORIDE 0.9% IV 1,000 ML 60 ML IV CONT (13:03)
--- NOTE | 2021-12-29 13:32 | PM.IMPN ---
Progress Note: A&P Assessment and Plan (1) Acute pancreatitis: Code(s): K85.90 - Acute pancreatitis without necrosis or infection, unspecified Status: Acute Assessment and Plan: Recurrent, had recent admission for same Lipase was normal on discharge 12/18/21, now elevated again Continue IV antibiotics NPO, IVF, pain control, anti emetics Awaiting for transfer to [facility] (2) Cholelithiasis: Code(s): K80.20 - Calculus of gallbladder without cholecystitis without obstruction Status: Acute Assessment and Plan: Cholelithiasis is present without symptoms of cholecystitis, appreciate surgery consultation, suspect this is contributing to patient's pancreatitis, patient will need to have her gallbladder removed to prevent recurrences, currently there are no signs of choledocholithiasis, however (3) Morbid obesity: Code(s): E66.01 - Morbid (severe) obesity due to excess calories Status: Acute (4) Hypertension: Code(s): I10 - Essential (primary) hypertension Status: Acute Assessment and Plan: Amlodipine held while NPO, blood pressure stable (5) Chronic anemia: Code(s): D64.9 - Anemia, unspecified Status: Acute Assessment and Plan: Pt found to be anemic on last admission, and was started on Iron supplementation Hgb has increased from 9.4-->11.0 over the past 6 days and she appears stable with her CBC and RBC indices Continue home iron supplementation (6) Elevated platelet count: Code(s): R79.89 - Other specified abnormal findings of blood chemistry Status: Acute Assessment and Plan: Suspect elevated platelets are reactive, monitor (7) Hypokalemia: Code(s): E87.6 - Hypokalemia Status: Acute Assessment and Plan: Replace with 40 mEq IVPB, recheck tomorrow Subjective Date/time seen: 12/29/21 13:32 No new complaints. Still having some mild abdominal pain. Exam Narrative: General: No acute distress, alert and oriented per baseline HEENT: Atraumatic, normocephalic, mucous membranes moist CV: Regular rate and rhythm, S1, S2 no murmurs rubs or gallops noted Lungs: Clear to auscultation bilaterally, no rales or crackles noted, no wheezes, good air entry Abdomen: Soft, somewhat tender in the epigastric and right upper quadrant areas, no rebounding or guarding Extremities: Normal to inspection Skin: No rashes noted, no lesions or wounds seen Psych: Euthymic, normal affect Neuro: Cranial nerves 2-12 grossly intact, strength +5/5 upper and lower extremities bilaterally Const: General: uncomfortable Other: Morbidly obese HENMT: General nose exam: Normal nares present Mouth: Yes moist mucous membranes Eyes: General: appearance normal, both eyes and all related structures Sclera: sclerae normal Pupils: Equal, round and reactive pupils present EOM: EOMs intact bilaterally Neck: Neck: supple and no JVD Lymphatic: lymphadenopathy not noted Chest: Other: Not tender to palpation Resp: Effort & Inspection: normal respiratory effort Auscultation: clear to auscultation bilaterally Cardio: Rate: tachycardic Rhythm: regular rhythm Heart sounds: no gallops, no murmurs and no rubs GI: Inspection: non-distended Skin: General skin exam: normal color and no rashes or lesions noted Wounds: no wounds Neuro: General: gait normal Cranial nerves: Yes Equal, round and reactive pupils present Speech: normal speech Motor exam (neuro): 5/5 motor strength present throughout and Normal motor muscle tone present throughout Sensory Exam: normal sensation Extrem: General: normal to inspection, no edema and no pedal edema Other: MAEW and without deficit Psych: Mental Status: mental status grossly normal Affect: normal affect Objective Data Vital Signs Vital Signs: Vital Signs - 24 hr 12/28/21 14:00 12/28/21 22:00 12/29/21 06:00 Temperature 96.5 F L 98.7 F 98.1 F
[2021-12-29 14:00] VITALS: BP 112/52; PULSE 80; RESP 18; TEMP 35.7; O2SAT 100
[2021-12-29] MEDS: FAT EMULSIONS IV 20% 250 ML 20.83 ML IVPB (16:18)
[2021-12-29] MEDS: AMINO ACIDS 5%/D15W/E-LYTES/CA 2,000 ML with MULTIVITAMINS-12 INJ VIAL 1 2.5 ML, MULTIV... 40 ML IV CONT (16:19)
--- NOTE | 2021-12-29 16:52 | PM.PNGS ---
Progress Note: A&P Assessment and Plan (1) Acute pancreatitis: Code(s): K85.90 - Acute pancreatitis without necrosis or infection, unspecified Status: Acute Assessment and Plan: CT showed acute necrotizing pancreatitis with formation of a pseudocyst or necrotic collection. We would still recommend transfer to a tertiary care center where she can be evaluated by a hepatobiliary surgeon, therefore if she required further surgical intervention for the necrotizing pancreatitis and fluid collection, then they could potentially do a cholecystectomy at that time. I have additionally called [facility] transfer line again today. Patient and family are okay with transfer to other facilities besides [facility] as long as they have hepatobiliary. Will also try calling [facility]. Continue TPN/[facility], bowel rest, and analgesics as needed. Lipase up to 700 today. Repeat labs tomorrow. (2) Morbid obesity: Code(s): E66.01 - Morbid (severe) obesity due to excess calories Status: Acute (3) Chronic anemia: Code(s): D64.9 - Anemia, unspecified Status: Acute (4) Hypertension: Code(s): I10 - Essential (primary) hypertension Status: Acute Plan I have discussed the patient's case and plan of care with Dr. Monzon. Subjective Subjective Date/Time Seen: 12/29/21 16:52 Patient reports: no new complaints, still having pain, flatus and afebrile Interval history: Patient seen and examined. She reports still having LUQ pain that seems to be radiating to the RUQ today. No other complaints at this time. Still with some intermittent nausea, but controlled. Review of Systems Review of Systems: All systems reviewed & are unremarkable except as noted in HPI and below Exam Const: General: comfortable, no acute distress and awake Nutritional Appearance: obese Orientation/consciousness: patient oriented x3 GI: Inspection: non-distended and obesity GI Palp: Yes Soft to palpation, Yes Tenderness to palpation present (GI) (LUQ), No Guarding due to palpation present (GI), Yes No hepatosplenomegaly present and No Rebound tenderness present Auscultation: normal bowel sounds Extrem: General: normal to inspection Psych: Mental Status: mental status grossly normal Thought process: Normal thought process present Objective Data Vital Signs Vital Signs: Vital Signs - 24 hr 12/28/21 22:00 12/29/21 06:00 12/29/21 08:30 Temperature 98.7 F 98.1 F Pulse Rate 86 91 Respiratory Rate 18 18 Blood Pressure 138/83 126/86 Pulse Oximetry 100 98 Oxygen Delivery Room Air 12/29/21 14:00 Temperature 96.3 F L Pulse Rate 80 Respiratory Rate 18 Blood Pressure 112/52 L Pulse Oximetry 100 Oxygen Delivery Intake/Output Intake/Output: Intake & Output 12/26/21 12/27/21 12/28/21 12/29/21 23:59 23:59 23:59 23:59 Intake Total 3300 4755 2604 3239 Output Total 3600 1150 1050 700 Balance -300 3605 1554 2539 Meds/Results Medications: Active Medications Generic Name Dose Route Start Last Admin Trade Name Freq PRN Reason Stop Dose Admin Dextrose 12.5 gm 12/26/21 11:34 Dextrose 50% 25 Gm/50 Ml Syringe IV PUSH PRN PRN Hypoglycemia Protocol Enoxaparin Sodium 40 mg 12/25/21 09:00 12/29/21 08:36 Enoxaparin 40 Mg/0.4 Ml Syringe SUB-Q 40 mg DAILY KIARA Administration Glucagon 1 mg 12/26/21 11:34 Glucagon For Inj 1 Mg Vial IM PRN PRN Hypoglycemia Protocol Glucose 15 gm 12/26/21 11:34 Glucose Oral Gel 15 Gm Of Glucse In 37.5 Gm Tube PO PRN PRN Hypoglycemia Protocol Hydromorphone HCl 0.5 mg 12/24/21 18:10 12/26/21 08:41 Hydromorphone Hcl Inj (*Crx) 1 Mg/Ml Syr IV PUSH 0.5 mg Q4H PRN Administration Pain Rated 7-10 Dextrose 1,000 mls @ 50 mls/hr 12/26/21 14:23 Dextrose 10% IV CONT .Q20H PRN if PN is interrupted Multivitamins 2.5 ml/ 2,005 mls @ 40 mls/hr 12/26/21 15:00 12/29/21 16:19 Multivitamins 2.5 ml/ Am
[2021-12-29 17:58] LABS: Glucose Point of Care 133 mg/dl (65-105)
[2021-12-29 22:00] VITALS: BP 131/77; PULSE 93; RESP 18; TEMP 36.1; O2SAT 100
[2021-12-29] MEDS: MELATONIN 3 MG TABLET PO (22:18)
[2021-12-30 01:16] LABS: Glucose Point of Care 146 mg/dl (65-105)
[2021-12-30 05:03] LABS: Hematocrit 28.5 % (37.0-47.0); Hemoglobin 8.6 g/dL (12.0-15.0); Mean Corpuscular HGB Conc 30.2 g/dl (32-36); Mean Corpuscular Hemoglobin 25.6 pg (26-34); Mean Corpuscular Volume 84.8 fl (80-100); Mean Platelet Volume 9.1 fl (7.4-10.4); Platelet Count Result 469 k/mm3 (150-375); Red Blood Count 3.36 M/mm3 (4.2-5.4); Red Cell Distribution Width 13.9 % (11.5-14.5); White Blood Count 5.2 K/mm3 (4.5-10.0)
[2021-12-30 05:21] LABS: Alanine Aminotransferase 13 U/L (6-35); Albumin Level 3.3 g/dL (3.5-5.1); Alkaline Phosphatase 44 U/L (38-126); Anion Gap 8 mmol/L (8-16); Aspartate Amino Transferase 29 U/L (14-36); Bilirubin,Total 0.4 mg/dL (0.2-1.3); Blood Urea Nitrogen 4 mg/dL (7-17); Calcium 8.7 mg/dL (8.4-10.2); Carbon Dioxide 26 mmol/L (22-30); Chloride 97 mmol/L (98-107); Estimated CRCL calculation 101 ml/min; Estimated Glomerular Filt Rate > 60; Lipase 785 U/L (23-300); Phosphorus 8.5 mg/dL (2.5-4.5); Potassium 5.3 mmol/L (3.4-5.0); Sodium 131 mmol/L (137-145)
[2021-12-30 05:43] VITALS: BP 108/77; PULSE 96; RESP 18; TEMP 35.9; O2SAT 100
[2021-12-30] MEDS: SODIUM CHLORIDE 0.9% IV 1,000 ML 60 ML IV CONT (06:59)
[2021-12-30 07:17] LABS: Glucose 788 mg/dL (65-110)
[2021-12-30] MEDS: ONDANSETRON INJ 4 MG/2 ML VIAL IV PUSH ×2 (07:38→19:23)
[2021-12-30] MEDS: PANTOPRAZOLE SODIUM IV 40 MG VIAL IV PUSH (07:40)
[2021-12-30] MEDS: ENOXAPARIN 40 MG/0.4 ML SYRINGE SUB-Q (07:40)
[2021-12-30 08:40] LABS: Anion Gap 4 mmol/L (8-16); Blood Urea Nitrogen 4 mg/dL (7-17); Calcium 8.7 mg/dL (8.4-10.2); Carbon Dioxide 30 mmol/L (22-30); Chloride 104 mmol/L (98-107); Estimated CRCL calculation 127 ml/min; Estimated Glomerular Filt Rate > 60; Glucose 139 mg/dL (65-110); Potassium 3.5 mmol/L (3.4-5.0); Sodium 138 mmol/L (137-145)
[2021-12-30 09:07] LABS: Glucose Point of Care 134 mg/dl (65-105)
[2021-12-30 11:46] LABS: Glucose Point of Care 116 mg/dl (65-105)
[2021-12-30] MEDS: ACETAMINOPHEN 325 MG TABLET 650 MG (12:01)
--- NOTE | 2021-12-30 13:30 | PM.PNGS ---
Progress Note: A&P Assessment and Plan (1) Acute pancreatitis: Code(s): K85.90 - Acute pancreatitis without necrosis or infection, unspecified Status: Acute Assessment and Plan: CT showed acute necrotizing pancreatitis with formation of a pseudocyst or necrotic collection. Spoke with Hepatobiliary at [place] yesterday, Dr. Milo Abbasi, who recommended to continue current treatment and advance her diet as tolerated with follow-up with him as an outpatient. He did not feel there was any indication for further surgical intervention of the pancreatic necrotic collection at this time, unless she began declining or becoming septic. Still on a waiting list at [facility] with no bed availability. Tolerating clear liquids. Start slowly advancing diet as tolerated. Lipase about the same today in the 700's. Will continue TPN until tolerating a more substantial diet. (2) Morbid obesity: Code(s): E66.01 - Morbid (severe) obesity due to excess calories Status: Acute (3) Chronic anemia: Code(s): D64.9 - Anemia, unspecified Status: Acute (4) Hypertension: Code(s): I10 - Essential (primary) hypertension Status: Acute Plan I have discussed the patient's case and plan of care with Dr. Monzon. Subjective Subjective Date/Time Seen: 12/30/21 13:30 Patient reports: no new complaints, feels better, flatus, bowel movement (Soft BM this morning) and afebrile Interval history: Patient seen and examined. She reports having some mild left upper quadrant abdominal pain this morning that has progressively improved over the day. She reports feeling about the same as yesterday, but overall feels better than when she was admitted. No nausea today. She reports some intermittent nausea yesterday and had 1 episode of vomiting after drinking apple juice, but felt it was associated to drinking juice too fast. No vomiting today. No other complaints at this time. Review of Systems Review of Systems: All systems reviewed & are unremarkable except as noted in HPI and below Exam Const: General: comfortable, no acute distress and awake Nutritional Appearance: obese Orientation/consciousness: patient oriented x3 GI: Inspection: non-distended, Pannus present and obesity GI Palp: Yes Soft to palpation, Yes Tenderness to palpation present (GI) (LUQ and epigastric), No Guarding due to palpation present (GI) and No Rebound tenderness present Auscultation: normal bowel sounds Psych: Mental Status: mental status grossly normal Thought process: Normal thought process present Objective Data Vital Signs Vital Signs: Vital Signs - 24 hr 12/29/21 14:00 12/29/21 20:00 12/29/21 22:00 Temperature 96.3 F L 96.9 F L Pulse Rate 80 93 Respiratory Rate 18 18 Blood Pressure 112/52 L 131/77 Pulse Oximetry 100 100 Oxygen Delivery Room Air 12/30/21 05:43 Temperature 96.7 F L Pulse Rate 96 Respiratory Rate 18 Blood Pressure 108/77 Pulse Oximetry 100 Oxygen Delivery Intake/Output Intake/Output: Intake & Output 12/27/21 12/28/21 12/29/21 12/30/21 23:59 23:59 23:59 23:59 Intake Total 4755 2604 3711 1300 Output Total 1150 1050 700 600 Balance 3605 1554 3011 700 Meds/Results Medications: Active Medications Generic Name Dose Route Start Last Admin Trade Name Freq PRN Reason Stop Dose Admin Acetaminophen 650 mg 12/30/21 11:47 Acetaminophen 325 Mg Tablet PO Q4H PRN Headache Dextrose 12.5 gm 12/26/21 11:34 Dextrose 50% 25 Gm/50 Ml Syringe IV PUSH PRN PRN Hypoglycemia Protocol Enoxaparin Sodium 40 mg 12/25/21 09:00 12/30/21 07:40 Enoxaparin 40 Mg/0.4 Ml Syringe SUB-Q 40 mg DAILY KIARA Administration Glucagon 1 mg 12/26/21 11:34 Glucagon For Inj 1 Mg Vial IM PRN PRN Hypoglycemia Protocol Glucose 15 gm 12/26/21 11:34 Glucose Oral Gel 15 Gm Of Glucse In 37.5 Gm Tube PO PRN PRN Hypoglycemia Protocol
[2021-12-30 14:00] VITALS: BP 119/71; PULSE 75; RESP 16; TEMP 36.4; O2SAT 94
--- NOTE | 2021-12-30 14:47 | PM.IMPN ---
Progress Note: A&P Assessment and Plan (1) Acute pancreatitis: Code(s): K85.90 - Acute pancreatitis without necrosis or infection, unspecified Status: Acute (2) Cholelithiasis: Code(s): K80.20 - Calculus of gallbladder without cholecystitis without obstruction Status: Acute (3) Morbid obesity: Code(s): E66.01 - Morbid (severe) obesity due to excess calories Status: Acute (4) Acute necrotizing pancreatitis: Code(s): K85.91 - Acute pancreatitis with uninfected necrosis, unspecified Status: Acute Plan ?26 year old female patient with significant PMH of morbid obesity, Recent Pancreatitis Hospitalization, Cholelithiasis without Cholecystitis, HTN, and chronic anemia presented to the ER with complaints of having abdominal pain after being discharged from the hospital on 12/18/21 when she was treated for acute necrotizing pancreatitis. 1)Acute Necrotizing Pancreatitis: patient symptomatically better on clear liquid diet Currently on TPN Appreciate surgery help Awaits bed at [facility], back up plan would be to stabilize and discharge with outpatient follow up with hepato biliary service in [facility] c/w [facility] c/w pain control meds 2)Cholelithiasis: present without symptoms of cholecystitis, appreciate surgery consultation, suspect this is contributing to patient's pancreatitis, patient will need to have her gallbladder removed to prevent recurrences, currently there are no signs of choledocholithiasis, however 3)HTN: Amlodipine on hOLD BP stable 4)DVT ppx: Lovenox 5)Code:Full 6)Dispo:pending improvement/await bed at [facility] Time Spent With Patient Time with patient: 15 - 25 minutes Subjective Date/time seen: 12/30/21 14:47 Interval history: no acute events overnight, feeling ok, tolerating clears Review of Systems Review of Systems: All systems reviewed & are unremarkable except as noted in HPI and below Constitutional: Constitutional: Reports no additional constitutional complaints Eyes: Eyes: Reports no additional eye complaints ENT: Reports system reviewed and no additional complaints, except as documented Cardiovascular: Cardiovascular: Reports no additional cardiovascular complaints Respiratory: Respiratory: Reports no additional respiratory complaints Gastrointestinal: Gastrointestinal: Reports no additional gastrointestinal complaints Musculoskeletal: Musculoskeletal: Reports no additional musculoskeletal complaints Neurologic: Reports system reviewed and no additional complaints, except as documented Exam Const: General: comfortable and no acute distress HENMT: Mouth: Yes moist mucous membranes Eyes: Sclera: sclerae normal Neck: Neck: supple Resp: Auscultation: clear to auscultation bilaterally Cardio: Rate: regular rate Rhythm: regular rhythm GI: GI Palp: Yes Soft to palpation Auscultation: normal bowel sounds Other: mild discomfort with palpation Skin: General skin exam: normal color Neuro: Speech: normal speech Extrem: General: normal to inspection Psych: Mental Status: mental status grossly normal Objective Data Vital Signs Vital Signs: Vital Signs - 24 hr 12/29/21 20:00 12/29/21 22:00 12/30/21 05:43 Temperature 96.9 F L 96.7 F L Pulse Rate 93 96 Respiratory Rate 18 18 Blood Pressure 131/77 108/77 Pulse Oximetry 100 100 Oxygen Delivery Room Air 12/30/21 14:00 Temperature 97.5 F L Pulse Rate 75 Respiratory Rate 16 Blood Pressure 119/71 Pulse Oximetry 94 Oxygen Delivery Intake/Output Intake/Output: Intake & Output 12/27/21 12/28/21 12/29/21 12/30/21 23:59 23:59 23:59 23:59 Intake Total 4755 2604 3711 2140 Output Total 1150 1050 700 600 Balance 3605 1554 3011 1540 Meds/Results Medications: Active Medications Generic Name Dose Route Start Last Admin Trade Name Freq PRN Reason Stop Dose Admin Acetaminophen 650 mg 12/30/21 11:47 Acetaminophen 325 Mg Tablet PO Q4H PRN
--- NOTE | 2021-12-30 15:02 | WPDGIPROGNO ---
Progress Note: A&P Assessment and Plan (1) Acute necrotizing pancreatitis: Code(s): K85.91 - Acute pancreatitis with uninfected necrosis, unspecified Status: Acute Assessment and Plan: She has acute necrotic collection around the pancreas measuring 12.3 x 4.9 cm- no need of acute intervention as she is comfortable and not signs of sepsis pain is improved, will advance diet slowly and eventually discontinue TPN when she is tolerating more diet she will need follow-up at tertiary center but currently no beds, also may need EUS to assess if evolving collection can be drainable or just treated medically (2) Chronic anemia: Code(s): D64.9 - Anemia, unspecified Status: Acute Assessment and Plan: stable (3) Cholelithiasis: Code(s): K80.20 - Calculus of gallbladder without cholecystitis without obstruction Status: Acute Assessment and Plan: will need interval cholecystectomy (4) Morbid obesity: Code(s): E66.01 - Morbid (severe) obesity due to excess calories Status: Acute Subjective Date/time seen: 12/30/21 15:02 Interval history: no changes, she is comfortable tolerated CL diet Review of Systems Review of Systems: All systems reviewed & are unremarkable except as noted in HPI and below Exam Const: General: comfortable and no acute distress Other: obese HENMT: Mouth: Yes moist mucous membranes Eyes: Sclera: sclerae normal Neck: Neck: supple Resp: Auscultation: clear to auscultation bilaterally Cardio: Rate: regular rate Rhythm: regular rhythm GI: GI Palp: Yes Soft to palpation Auscultation: normal bowel sounds Other: mild discomfort with palpation Skin: General skin exam: normal color Neuro: Speech: normal speech Extrem: General: normal to inspection Psych: Mental Status: mental status grossly normal Objective Data Vital Signs Vital Signs: Vital Signs - 24 hr 12/29/21 20:00 12/29/21 22:00 12/30/21 05:43 Temperature 96.9 F L 96.7 F L Pulse Rate 93 96 Respiratory Rate 18 18 Blood Pressure 131/77 108/77 Pulse Oximetry 100 100 Oxygen Delivery Room Air 12/30/21 14:00 Temperature 97.5 F L Pulse Rate 75 Respiratory Rate 16 Blood Pressure 119/71 Pulse Oximetry 94 Oxygen Delivery Intake/Output Intake/Output: Intake & Output 12/27/21 12/28/21 12/29/21 12/30/21 23:59 23:59 23:59 23:59 Intake Total 4751 2602 3711 2140 Output Total 1150 1050 700 600 Balance 3605 1554 3011 1540 Meds/Results Medications: Active Medications Generic Name Dose Route Start Last Admin Trade Name Freq PRN Reason Stop Dose Admin Acetaminophen 650 mg 12/30/21 11:47 Acetaminophen 325 Mg Tablet PO Q4H PRN Headache Dextrose 12.5 gm 12/26/21 11:34 Dextrose 50% 25 Gm/50 Ml Syringe IV PUSH PRN PRN Hypoglycemia Protocol Enoxaparin Sodium 40 mg 12/25/21 09:00 12/30/21 07:40 Enoxaparin 40 Mg/0.4 Ml Syringe SUB-Q 40 mg DAILY KIARA Administration Glucagon 1 mg 12/26/21 11:34 Glucagon For Inj 1 Mg Vial IM PRN PRN Hypoglycemia Protocol Glucose 15 gm 12/26/21 11:34 Glucose Oral Gel 15 Gm Of Glucse In 37.5 Gm Tube PO PRN PRN Hypoglycemia Protocol Hydromorphone HCl 0.5 mg 12/24/21 18:10 12/26/21 08:41 Hydromorphone Hcl Inj (*Crx) 1 Mg/Ml Syr IV PUSH 0.5 mg Q4H PRN Administration Pain Rated 7-10 Dextrose 1,000 mls @ 50 mls/hr 12/26/21 14:23 Dextrose 10% IV CONT .Q20H PRN if PN is interrupted Multivitamins 2.5 ml/ 2,005 mls @ 40 mls/hr 12/26/21 15:00 12/29/21 16:19 Multivitamins 2.5 ml/ Amino IV CONT 40 mls/hr Acids/Electrolytes/Dextrose .Q24H KIARA Administration Protocol Fat Emulsion Intravenous 250 mls @ 20.833 mls/hr 12/26/21 15:00 12/29/21 16:18 Lipids 20% IVPB 20.83 mls/hr Q24H KIARA Administration Sodium Chloride 1,000 mls @ 60 mls/hr 12/28/21 16:20 12/30/21 06:59 Normal Salin
[2021-12-30] MEDS: AMINO ACIDS 5%/D15W/E-LYTES/CA 2,000 ML with MULTIVITAMINS-12 INJ VIAL 1 2.5 ML, MULTIV... 40 ML IV CONT (15:16)
[2021-12-30] MEDS: CENTRAL LINE FLUSH 10 ML IV PUSH ×2 (15:16→21:51)
[2021-12-30] MEDS: FAT EMULSIONS IV 20% 250 ML 20.83 ML IVPB (15:18)
[2021-12-30 17:28] VITALS: O2SAT 97
[2021-12-30 17:39] LABS: Glucose Point of Care 131 mg/dl (65-105)
[2021-12-30 22:00] VITALS: BP 123/73; PULSE 88; RESP 18; TEMP 36.8; O2SAT 100
[2021-12-30] MEDS: MELATONIN 3 MG TABLET PO (22:39)
[2021-12-30 22:49] LABS: Glucose Point of Care 130 mg/dl (65-105)
[2021-12-31] MEDS: SODIUM CHLORIDE 0.9% IV 1,000 ML 60 ML IV CONT (00:13)
[2021-12-31] MEDS: ONDANSETRON INJ 4 MG/2 ML VIAL IV PUSH ×4 (02:31→18:30)
[2021-12-31] MEDS: HYDROmorphone HCL INJ (*CRX) 1 MG/ML SYR 0.5 MG IV PUSH ×2 (02:34→20:09)
[2021-12-31] MEDS: CENTRAL LINE FLUSH 10 ML IV PUSH ×3 (05:45→23:46)
[2021-12-31 06:00] VITALS: BP 102/53; PULSE 70; RESP 18; TEMP 36.8; O2SAT 100
[2021-12-31 06:03] LABS: Basophils Absolute Auto 0.1 K/mm3 (0.0-0.1); Basophils Percent Auto 1.5 % (0.2-1.2); Eosinophils Absolute Auto 0.1 K/mm3 (0-0.3); Eosinophils Percent Auto 3.5 % (0-4.4); Hematocrit 27.5 % (37.0-47.0); Immature Granulocyte Absolute 0.01 K/mm3 (0.00-0.031); Immature Granulocyte Percent A 0.3 % (0-0.5); Lymphocytes Absolute Auto 1.23 K/mm3 (0.9-3.2); Lymphocytes Percent Auto 31.1 % (18.3-44.2); Mean Corpuscular HGB Conc 29.1 g/dl (32-36); Mean Corpuscular Hemoglobin 25.4 pg (26-34); Mean Corpuscular Volume 87.3 fl (80-100); Mean Platelet Volume 9.4 fl (7.4-10.4); Monocytes Absolute Auto 0.4 K/mm3 (0.1-0.6); Monocytes Percent Auto 9.6 % (2.6-8.5); Neutrophils Absolute Auto 2.1 K/mm3 (1.3-6.7); Platelet Count Result 414 k/mm3 (150-375); Red Blood Count 3.15 M/mm3 (4.2-5.4); Red Cell Distribution Width 14.2 % (11.5-14.5)
[2021-12-31 06:04] LABS: Glucose Point of Care 141 mg/dl (65-105)
[2021-12-31] MEDS: ENOXAPARIN 40 MG/0.4 ML SYRINGE SUB-Q (08:39)
[2021-12-31] MEDS: PANTOPRAZOLE SODIUM IV 40 MG VIAL IV PUSH (08:39)
[2021-12-31 09:10] LABS: Alanine Aminotransferase 17 U/L (6-35); Albumin Level 3.6 g/dL (3.5-5.1); Alkaline Phosphatase 69 U/L (38-126); Anion Gap 4 mmol/L (8-16); Aspartate Amino Transferase 31 U/L (14-36); Bilirubin,Total 0.4 mg/dL (0.2-1.3); Blood Urea Nitrogen 4 mg/dL (7-17); Calcium 8.7 mg/dL (8.4-10.2); Carbon Dioxide 31 mmol/L (22-30); Chloride 104 mmol/L (98-107); Estimated CRCL calculation 127 ml/min; Estimated Glomerular Filt Rate > 60; Glucose 133 mg/dL (65-110); Lipase 683 U/L (23-300); Phosphorus 5.6 mg/dL (2.5-4.5); Sodium 139 mmol/L (137-145); Triglycerides 138 mg/dL (<150)
[2021-12-31] MEDS: ACETAMINOPHEN 325 MG TABLET 650 MG PO ×2 (11:14→17:53)
--- NOTE | 2021-12-31 11:17 | WPDGIPROGNO ---
Progress Note: A&P Assessment and Plan (1) Acute necrotizing pancreatitis: Code(s): K85.91 - Acute pancreatitis with uninfected necrosis, unspecified Status: Acute Assessment and Plan: She has acute necrotic collection around the pancreas measuring 12.3 x 4.9 cm- no need of acute intervention as she is comfortable and not signs of sepsis pain is improved, will advance diet slowly and eventually discontinue TPN when she is tolerating more diet she will need follow-up at tertiary center but currently no beds, also may need EUS to assess if evolving collection can be drainable or just treated medically 12/31/2021 she is improving. She is tolerating full liquids and I think that we can gradually advance her to a low-fat diet. She should be able to get off TPN soon. (2) Chronic anemia: Code(s): D64.9 - Anemia, unspecified Status: Acute Assessment and Plan: 12/31/2021 no evidence of bleeding (3) Cholelithiasis: Code(s): K80.20 - Calculus of gallbladder without cholecystitis without obstruction Status: Acute Assessment and Plan: will need interval cholecystectomy at some point. (4) Morbid obesity: Code(s): E66.01 - Morbid (severe) obesity due to excess calories Status: Acute (5) Hypokalemia: Code(s): E87.6 - Hypokalemia Status: Acute Assessment and Plan: She is still receiving TPN with appropriate electrolytes. She will be able to get off this hopefully and a year so. Subjective Date/time seen: 12/31/21 11:17 She is feeling good this morning. She tolerated full liquids yesterday evening. She states that around 1 in the morning she had pain that required taking medications but has been fine since then. Denies nausea or vomiting. Remains on TPN but that should be able to be tapered soon. Exam Narrative: Physical exam reveals patient be alert. Vital signs are stable. HEENT exam reveals no icterus. Lungs are clear to auscultation and percussion. Heart is without murmur or extra sounds. Abdomen is obese. Bowel sounds are present soft mild left upper quadrant discomfort. Extremities are without clubbing cyanosis or edema. Const: General: comfortable, no acute distress and uncomfortable; No confusion Orientation/consciousness: No confusion Other: obese HENMT: General nose exam: Normal nares present Mouth: Yes moist mucous membranes Eyes: General: appearance normal, both eyes and all related structures Sclera: sclerae normal Pupils: Equal, round and reactive pupils present EOM: EOMs intact bilaterally Neck: Neck: supple and no JVD Resp: Effort & Inspection: normal respiratory effort Auscultation: clear to auscultation bilaterally Cardio: Rate: regular rate and tachycardic Rhythm: regular rhythm Heart sounds: no gallops, no murmurs and no rubs GI: Inspection: non-distended Auscultation: normal bowel sounds Other: mild discomfort with palpation Skin: General skin exam: normal color and no rashes or lesions noted Wounds: no wounds Neuro: General: No confusion Cranial nerves: Yes Equal, round and reactive pupils present and Yes Normal hearing present Speech: normal speech and No Abnormal speech present Motor exam (neuro): 5/5 motor strength present throughout and Normal motor muscle tone present throughout Sensory Exam: normal sensation Extrem: General: normal to inspection, no edema and no pedal edema Psych: Mental Status: mental status grossly normal Affect: normal affect Objective Data Vital Signs Vital Signs: Vital Signs - 24 hr 12/30/21 14:00 12/30/21 17:28 12/30/21 22:00 Temperature 36.4 C L 36.8 C Pulse Rate 75 88 Respiratory Rate 16 18 Blood Pressure 119/71 123/73 Pulse Oximetry 94 97 100 Oxygen Delivery Room Air 12/30/21 19:30 12/31/21 06:00 Temperature 36.8 C Pulse Rate 70 Respiratory Rate 18 Blood Pressure 102/53 L Pulse Oximetry 100 Oxygen Delivery Room Air Inta
--- NOTE | 2021-12-31 11:21 | PM.PNGS ---
Progress Note: A&P Assessment and Plan (1) Acute pancreatitis: Code(s): K85.90 - Acute pancreatitis without necrosis or infection, unspecified Status: Acute Assessment and Plan: CT showed acute necrotizing pancreatitis with formation of a pseudocyst or necrotic collection. Having more abdominal pain through the night and into this morning. Will leave on full liquids. Add supplements per dietitian's recommendations. Will stop TPN since she is tolerating the full liquids. Lipase down to the 600's. Repeat labs tomorrow. (2) Morbid obesity: Code(s): E66.01 - Morbid (severe) obesity due to excess calories Status: Acute (3) Chronic anemia: Code(s): D64.9 - Anemia, unspecified Status: Acute (4) Hypertension: Code(s): I10 - Essential (primary) hypertension Status: Acute Plan I have discussed the patient's case and plan of care with Dr. Monzon. Additional Plan Spoke with Hepatobiliary at [place], Dr. Milo Abbasi, who recommended to continue current treatment and advance her diet as tolerated with follow-up with him as an outpatient. He did not feel there was any indication for further surgical intervention of the pancreatic necrotic collection at this time, unless she began declining or becoming septic. Still on a waiting list at [facility] with no bed availability. Subjective Subjective Date/Time Seen: 12/31/21 11:21 Patient reports: still having pain, tolerating liquids well, flatus, bowel movement and afebrile Interval history: Patient seen and examined. She reports having an episode of LUQ pain last night around 2:00 am. She did require pain medication, which helped. She reports feeling more uncomfortable today than she has the past few days, reportedly abdominal discomfort but no longer feels like it is pain . She denies nausea or vomiting. She is tolerating the full liquids. Review of Systems Review of Systems: All systems reviewed & are unremarkable except as noted in HPI and below Exam Const: General: comfortable, no acute distress and awake Nutritional Appearance: obese Orientation/consciousness: patient oriented x3 GI: Inspection: non-distended and obesity GI Palp: Yes Soft to palpation, Yes Tenderness to palpation present (GI) (epigastric LUQ), No Guarding due to palpation present (GI), Yes No hepatosplenomegaly present and No Rebound tenderness present Auscultation: normal bowel sounds Skin: General skin exam: normal color Neuro: General: moves all extremities and no focal motor deficits Extrem: General: normal to inspection Psych: Mental Status: mental status grossly normal Thought process: Normal thought process present Objective Data Vital Signs Vital Signs: Vital Signs - 24 hr 12/30/21 14:00 12/30/21 17:28 12/30/21 22:00 Temperature 97.5 F L 98.3 F Pulse Rate 75 88 Respiratory Rate 16 18 Blood Pressure 119/71 123/73 Pulse Oximetry 94 97 100 Oxygen Delivery Room Air 12/30/21 19:30 12/31/21 06:00 Temperature 98.2 F Pulse Rate 70 Respiratory Rate 18 Blood Pressure 102/53 L Pulse Oximetry 100 Oxygen Delivery Room Air Intake/Output Intake/Output: Intake & Output 12/28/21 12/29/21 12/30/21 12/31/21 23:59 23:59 23:59 23:59 Intake Total 2604 3711 5145 700 Output Total 1050 700 600 Balance 1554 3011 4545 700 Meds/Results Medications: Active Medications Generic Name Dose Route Start Last Admin Trade Name Freq PRN Reason Stop Dose Admin Acetaminophen 650 mg 12/30/21 11:47 12/31/21 11:14 Acetaminophen 325 Mg Tablet PO 650 mg Q4H PRN Administration Headache Dextrose 12.5 gm 12/26/21 11:34 Dextrose 50% 25 Gm/50 Ml Syringe IV PUSH PRN PRN Hypoglycemia Protocol Enoxaparin Sodium 40 mg 12/25/21 09:00 12/31/21 08:39 Enoxaparin 40 Mg/0.4 Ml Syringe SUB-Q 40 mg DAILY KIARA Administration Glucagon 1 mg 12/26/21 11:34 Glucagon For Inj 1 Mg Vial IM PRN PRN
[2021-12-31 11:49] LABS: Glucose Point of Care 123 mg/dl (65-105)
--- NOTE | 2021-12-31 13:56 | PM.IMPN ---
Progress Note: A&P Assessment and Plan (1) Acute pancreatitis: Code(s): K85.90 - Acute pancreatitis without necrosis or infection, unspecified Status: Acute (2) Cholelithiasis: Code(s): K80.20 - Calculus of gallbladder without cholecystitis without obstruction Status: Acute (3) Morbid obesity: Code(s): E66.01 - Morbid (severe) obesity due to excess calories Status: Acute (4) Acute necrotizing pancreatitis: Code(s): K85.91 - Acute pancreatitis with uninfected necrosis, unspecified Status: Acute Plan ?26 year old female patient with significant PMH of morbid obesity, Recent Pancreatitis Hospitalization, Cholelithiasis without Cholecystitis, HTN, and chronic anemia presented to the ER with complaints of having abdominal pain after being discharged from the hospital on 12/18/21 when she was treated for acute necrotizing pancreatitis. 1)Acute Necrotizing Pancreatitis: pain little worse today but tolerating oral C/w full liquid diet TPN has been stopped Currently on TPN Awaits bed at [facility], back up plan would be to stabilize and discharge with outpatient follow up with hepato biliary service in [facility] c/w [facility] c/w pain control meds 2)Cholelithiasis: present without symptoms of cholecystitis, appreciate surgery consultation, suspect this is contributing to patient's pancreatitis, patient will need to have her gallbladder removed to prevent recurrences, currently there are no signs of choledocholithiasis, however 3)HTN: Amlodipine on hOLD BP stable 4)DVT ppx: Lovenox 5)Code:Full 6)Dispo:pending improvement to be discharged home/await bed at [facility] Time Spent With Patient Time with patient: 15 - 25 minutes Subjective Date/time seen: 12/31/21 13:56 Interval history: slight worsening of abdominal pain, but tolerating full liquid diet Review of Systems Review of Systems: All systems reviewed & are unremarkable except as noted in HPI and below Constitutional: Constitutional: Reports no additional constitutional complaints Eyes: Eyes: Reports no additional eye complaints ENT: Reports system reviewed and no additional complaints, except as documented Cardiovascular: Cardiovascular: Reports no additional cardiovascular complaints Respiratory: Respiratory: Reports no additional respiratory complaints Gastrointestinal: Gastrointestinal: Reports no additional gastrointestinal complaints Musculoskeletal: Musculoskeletal: Reports no additional musculoskeletal complaints Neurologic: Reports system reviewed and no additional complaints, except as documented Exam Const: General: comfortable and no acute distress HENMT: Mouth: Yes moist mucous membranes Eyes: Sclera: sclerae normal Neck: Neck: supple Resp: Auscultation: clear to auscultation bilaterally Cardio: Rate: regular rate Rhythm: regular rhythm GI: Inspection: non-distended Auscultation: normal bowel sounds Other: mild epigastric discomfort with palpation Skin: General skin exam: normal color Neuro: General: gait normal Speech: normal speech Extrem: General: normal to inspection and no edema Psych: Mental Status: mental status grossly normal Affect: normal affect Objective Data Vital Signs Vital Signs: Vital Signs - 24 hr 12/30/21 14:00 12/30/21 17:28 12/30/21 22:00 Temperature 97.5 F L 98.3 F Pulse Rate 75 88 Respiratory Rate 16 18 Blood Pressure 119/71 123/73 Pulse Oximetry 94 97 100 Oxygen Delivery Room Air 12/30/21 19:30 12/31/21 06:00 12/31/21 08:40 Temperature 98.2 F Pulse Rate 70 Respiratory Rate 18 Blood Pressure 102/53 L Pulse Oximetry 100 Oxygen Delivery Room Air Room Air Intake/Output Intake/Output: Intake & Output 12/28/21 12/29/21 12/30/21 12/31/21 23:59 23:59 23:59 23:59 Intake Total 2601 4021 5145 1160 Output Total 1050 700 600 Balance 1554 7062 3789 1160 Meds/Results Medications: Active Medications Generic Name Dos
[2021-12-31 14:00] VITALS: BP 133/83; PULSE 100; RESP 18; TEMP 36.4; O2SAT 100
--- NOTE | 2021-12-31 14:02 | PCCCNOTE ---
On 12/31/21, the student, Promise Carlton, provided care and completed [facility] documentation on this patient. I have reviewed the student's documentation and agree with the findings.
--- NOTE | 2021-12-31 14:53 | PCDIET ---
Consult for recommendation of low fat supplement. MD orders for Ensure Clear BID: 0 grams fat, 240 kcals, 8 grams protein per bottle. Will continue to monitor every Tuesday/Tuesday.
--- NOTE | 2021-12-31 14:57 | PCNSR ---
On 12/31/21, the student, Lizeth Dash, provided care and completed [facility] documentation on this patient. I have reviewed the student's documentation and agree with the findings.
[2021-12-31 17:15] VITALS: O2SAT 98
[2021-12-31 21:36] VITALS: BP 103/91; PULSE 79; RESP 16; TEMP 37; O2SAT 99
[2022-01-01] MEDS: ACETAMINOPHEN 325 MG TABLET 650 MG PO ×2 (02:52→23:58)
[2022-01-01 04:37] LABS: Hematocrit 28.9 % (37.0-47.0); Hemoglobin 8.7 g/dL (12.0-15.0); Mean Corpuscular HGB Conc 30.1 g/dl (32-36); Mean Corpuscular Hemoglobin 25.2 pg (26-34); Mean Corpuscular Volume 83.8 fl (80-100); Mean Platelet Volume 8.8 fl (7.4-10.4); Platelet Count Result 427 k/mm3 (150-375); Red Blood Count 3.45 M/mm3 (4.2-5.4); Red Cell Distribution Width 13.6 % (11.5-14.5)
[2022-01-01 04:48] LABS: Alanine Aminotransferase 17 U/L (6-35); Albumin Level 3.5 g/dL (3.5-5.1); Alkaline Phosphatase 67 U/L (38-126); Anion Gap 3 mmol/L (8-16); Aspartate Amino Transferase 34 U/L (14-36); Bilirubin,Total 0.4 mg/dL (0.2-1.3); Blood Urea Nitrogen 5 mg/dL (7-17); Calcium 8.6 mg/dL (8.4-10.2); Carbon Dioxide 32 mmol/L (22-30); Chloride 102 mmol/L (98-107); Estimated CRCL calculation 127 ml/min; Estimated Glomerular Filt Rate > 60; Glucose 130 mg/dL (65-110); Lipase 497 U/L (23-300); Potassium 3.6 mmol/L (3.4-5.0); Sodium 137 mmol/L (137-145)
[2022-01-01 05:45] VITALS: BP 146/71; PULSE 71; RESP 16; TEMP 37; O2SAT 98
[2022-01-01] MEDS: CENTRAL LINE FLUSH 10 ML IV PUSH ×3 (05:50→22:00)
[2022-01-01] MEDS: LIPASE/AMYLASE/PROTEASE 12,000 UNITS CAP 2 CAP PO ×3 (08:30→16:58)
[2022-01-01] MEDS: ENOXAPARIN 40 MG/0.4 ML SYRINGE SUB-Q (08:30)
[2022-01-01] MEDS: PANTOPRAZOLE SODIUM IV 40 MG VIAL IV PUSH (08:30)
--- NOTE | 2022-01-01 10:21 | PCNFU ---
Nutrition Follow-Up Complete: Inadequate po intake related to altered GI function as evidenced by NPO d/t pancreatitis, need for TPN for nutrition support. Goal: Meet 60-80% of nutrtional needs via nutrition support. Noted TPN is now d/c'd, pt advanced to a po diet. New Goal: PO intake 75% of meals. Pt is progressing towards goal. Pt current nutrition is Full liquids. Nutrition recommendation: Continue to advance diet as tolerated. Last recorded weight is 118.2 kg- stable at this time. Bowel Motility: +BM 12/29 Labs Reviewed: Hgb:8.7, HCT:28.4, BUN:5, Glu:130 Meds Noted: lovenox, novolog, protonix, zofran Skin: WNL Additional Notes: Pt diet advanced to full liquids, reports tolerating it fair, intake 100% most meals. Orders for Ensure Clear TID but pt states she has not received. Will make sure they are sent on trays as pt prefers the Ensure Clear for supplement. Agree with diet orders, advance as tolerated. Monitor intake, wt, labs. Follow up every 3 days.
[2022-01-01 10:24] VITALS: O2SAT 97
--- NOTE | 2022-01-01 12:04 | PM.PNGS ---
Progress Note: A&P Assessment and Plan (1) Acute pancreatitis: Code(s): K85.90 - Acute pancreatitis without necrosis or infection, unspecified Status: Acute Assessment and Plan: CT showed acute necrotizing pancreatitis with formation of a pseudocyst or necrotic collection.(no gas/air in the cavity) Not having any more abdominal pain through the night or into this morning. Will leave on full liquids. Add supplements per dietitian's recommendations. Will stop TPN since she is tolerating the full liquids. Lipase down to the 400's. even though taking a diet. This may be promising but we need to remember that she is on IV antibiotics at this time. Repeat labs tomorrow. If tolerating diet may increase to low-fat soft tomorrow and consider discharge. If so will plan ahead and see if we can get an outpatient appointment with the pancreatobiliary surgeon at either [facility] or [facility] for early next week. Recommend that we also leave her PICC line and so she will need home health to have flushes and care of the PICC line. Since this will be left in, may consider sending her home on once a day or to [place] to continue antibiotics until she is seen at a higher level of care. (I think it would be wing to proactively get an appointment with a pancreatobiliary surgeon as an outpatient either at [facility] or at [facility]. (Dr. Milo Abbasi at [place] has stated that he would be willing to see the patient as an outpatient-edwin Richards our nurse practitioner at called him earlier.) (2) Morbid obesity: Code(s): E66.01 - Morbid (severe) obesity due to excess calories Status: Acute (3) Chronic anemia: Code(s): D64.9 - Anemia, unspecified Status: Acute (4) Hypertension: Code(s): I10 - Essential (primary) hypertension Status: Acute Plan Have discussed her situation with case coordination and asked them to help schedule an appointment with Dr. Abbasi or a pancreatic biliary surgeon at [facility] where they have previously accepted the patient but been unable to get her to the hospital because the hospital was full. Now that she will be outpatient perhaps we can accomplish this referral. Additional Plan Sometime in the last 2 days Susie our nurse practitioner spoke with Hepatobiliary at [place], Dr. Milo Abbasi, who recommended to continue current treatment and advance her diet as tolerated with follow-up with him as an outpatient. He did not feel there was any indication for further surgical intervention of the pancreatic necrotic collection at this time, unless she began declining or becoming septic. Still on a waiting list at [facility] with no bed availability. Subjective Subjective Date/Time Seen: 01/01/22 12:04 Patient reports: no new complaints, feels better and tolerating liquids well Interval history: Patient is sitting at side of bed. She states she is walking the halls. She tried full liquids for breakfast and did okay. States that Dr. Velez was by for GI today and is starting her on some oral pancreatic supplement and planning on increasing her diet more over the weekend and possibly discharging. (I think it would be wing to proactively get an appointment with a pancreatobiliary surgeon as an outpatient either at [facility] or at [facility]. (Dr. Milo Abbasi at [place] has stated that he would be willing to see the patient as an outpatient-edwin Richards our nurse practitioner at called him earlier.) Review of Systems Review of Systems: All systems reviewed & are unremarkable except as noted in HPI and below Exam Const: General: comfortable, no acute distress and awake Nutritional Appearance: obese Orientation/consciousness: patient oriented x3 GI: Inspection: non-distended and obesity GI Palp: Yes Soft to palpation, Yes Tenderness to palpation present (GI) (epigastric LUQ), No Guarding due to palpation present (GI) and No Rebound tenderness present Auscultation: normal bowel sounds Skin: General skin exam: normal col
[2022-01-01 12:08] LABS: Glucose Point of Care 118 mg/dl (65-105)
--- NOTE | 2022-01-01 13:56 | WPDGIPROGNO ---
Progress Note: A&P Assessment and Plan (1) Acute necrotizing pancreatitis: Code(s): K85.91 - Acute pancreatitis with uninfected necrosis, unspecified Status: Acute Assessment and Plan: She has acute necrotic collection around the pancreas measuring 12.3 x 4.9 cm- no need of acute intervention as she is comfortable and not signs of sepsis pain is improved, will advance diet slowly and eventually discontinue TPN when she is tolerating more diet she will need follow-up at tertiary center but currently no beds, also may need EUS to assess if evolving collection can be drainable or just treated medically 12/31/2021 she is improving. She is tolerating full liquids and I think that we can gradually advance her to a low-fat diet. She should be able to get off TPN soon. 01/01/2022 clinically she seems better although she did have more pain last evening which is a concern. (2) Chronic anemia: Code(s): D64.9 - Anemia, unspecified Status: Acute Assessment and Plan: 12/31/2021 no evidence of bleeding (3) Cholelithiasis: Code(s): K80.20 - Calculus of gallbladder without cholecystitis without obstruction Status: Acute Assessment and Plan: 01/01/2022 will need interval cholecystectomy at some point. surgery feels she would be best served at a pancreatico biliary surgery Center and they have spoken with Dr. Abbasi who was willing to see her after discharge. (4) Morbid obesity: Code(s): E66.01 - Morbid (severe) obesity due to excess calories Status: Acute (5) Hypokalemia: Code(s): E87.6 - Hypokalemia Status: Acute Assessment and Plan: She is still receiving TPN with appropriate electrolytes. She will be able to get off this hopefully Tomorrow. Subjective Date/time seen: 01/01/22 13:56 she tolerated her full liquids yesterday but did have more pain. She thinks that at least sometimes the pain was worse after meal. She had required pain medicine during the night but feels better now. I am starting pancreatic enzyme supplements. Depending on how she does today we may try her on a low-fat diet. . She denies any new symptoms Exam Narrative: Physical exam reveals patient be alert. Vital signs are stable. HEENT exam reveals no icterus. Lungs are clear to auscultation and percussion. Heart is without murmur or extra sounds. Abdomen is obese. Bowel sounds are present soft mild left upper quadrant discomfort. Extremities are without clubbing cyanosis or edema. Const: General: comfortable; No confusion Orientation/consciousness: No confusion Other: obese HENMT: General nose exam: Normal nares present Mouth: Yes moist mucous membranes Eyes: General: appearance normal, both eyes and all related structures Sclera: sclerae normal Pupils: Equal, round and reactive pupils present EOM: EOMs intact bilaterally Neck: Neck: supple and no JVD Resp: Effort & Inspection: normal respiratory effort Auscultation: clear to auscultation bilaterally Cardio: Rate: regular rate and tachycardic Rhythm: regular rhythm Heart sounds: no gallops, no murmurs and no rubs GI: Inspection: non-distended and obesity GI Palp: No abdominal tenderness Auscultation: normal bowel sounds Other: mild discomfort with palpation Skin: General skin exam: normal color and no rashes or lesions noted Wounds: no wounds Neuro: General: No confusion Cranial nerves: Yes Equal, round and reactive pupils present and Yes Normal hearing present Speech: normal speech and No Abnormal speech present Motor exam (neuro): 5/5 motor strength present throughout and Normal motor muscle tone present throughout Sensory Exam: normal sensation Extrem: General: normal to inspection, no edema and no pedal edema Psych: Mental Status: mental status grossly normal Affect: normal affect Objective Data Vital Signs Vital Signs: Vital Signs - 24 hr 12/31/21 14:00 12/31/21 17:15 07
[2022-01-01 15:06] VITALS: BP 128/92; PULSE 88; RESP 16; TEMP 36.5; O2SAT 93
--- NOTE | 2022-01-01 16:38 | PM.IMPN ---
Progress Note: A&P Assessment and Plan (1) Acute pancreatitis: Code(s): K85.90 - Acute pancreatitis without necrosis or infection, unspecified Status: Acute (2) Cholelithiasis: Code(s): K80.20 - Calculus of gallbladder without cholecystitis without obstruction Status: Acute (3) Morbid obesity: Code(s): E66.01 - Morbid (severe) obesity due to excess calories Status: Acute (4) Acute necrotizing pancreatitis: Code(s): K85.91 - Acute pancreatitis with uninfected necrosis, unspecified Status: Acute Plan ?26 year old female patient with significant PMH of morbid obesity, Recent Pancreatitis Hospitalization, Cholelithiasis without Cholecystitis, HTN, and chronic anemia presented to the ER with complaints of having abdominal pain after being discharged from the hospital on 12/18/21 when she was treated for acute necrotizing pancreatitis. 1)Acute Necrotizing Pancreatitis: pain little worse today but tolerating oral C/w full liquid diet TPN has been stopped Currently on TPN Awaits bed at [facility], back up plan would be to stabilize and discharge with outpatient follow up with hepato biliary service in [facility] c/w zosyn c/w pain control meds 2)Cholelithiasis: present without symptoms of cholecystitis, appreciate surgery consultation, suspect this is contributing to patient's pancreatitis, patient will need to have her gallbladder removed to prevent recurrences, currently there are no signs of choledocholithiasis, however 3)HTN: Amlodipine on hOLD BP stable 4)DVT ppx: Lovenox 5)Code:Full 6)Dispo:pending improvement to be discharged home/await bed at [facility] 01/01/2022 interval history: patient is a 26 y/o female with abdominal pain is found to have acute necrotizing pancreatitis patient clinical symptoms are improving, her lipase levels are trending down to 497 compared to 718 upon arrival, patient has been followed by GI and surgery service patient was able to tolerate clear liquid and TPN was stopped, and currently on full liquid diet, today discussed with pharmacy id recommending to stop Zosyn after 7th dose today, and will start Omnicef and Flagyl from tomorrow, patient has been accepted by hepatobiliary surgical department at [facility] pending bed availability, discussed with Dr. Monzon general surgeon suggested patient will benefit going to the hospital or if possible close follow-up at biliary department as an outpatient as soon as possible, plan is to monitor patient until Tuesday and reach out to [facility] for transfer or early clinical outpatient appointment. patient continue to have abdominal pain on and off, remains clinically stable denies any nausea or vomiting fever or chills. Subjective Date/time seen: 01/01/22 16:38 01/01/2022 interval history: patient is a 26 y/o female with abdominal pain is found to have acute necrotizing pancreatitis patient clinical symptoms are improving, her lipase levels are trending down to 497 compared to 718 upon arrival, patient has been followed by GI and surgery service patient was able to tolerate clear liquid and TPN was stopped, and currently on full liquid diet, today discussed with pharmacy id recommending to stop Zosyn after 7th dose today, and will start Omnicef and Flagyl from tomorrow, patient has been accepted by hepatobiliary surgical department at [facility] pending bed availability, discussed with Dr. Monzon general surgeon suggested patient will benefit going to the hospital or if possible close follow-up at biliary department as an outpatient as soon as possible, plan is to monitor patient until Tuesday and reach out to [facility] for transfer or early clinical outpatient appointment. patient continue to have abdominal pain on and off, remains clinically stable denies any nausea or vomiting fever or chills. Review of Systems Review of Systems: All systems reviewed & are unremarkable except as noted in HPI and below Exam Narrativ
[2022-01-01] MEDS: ONDANSETRON INJ 4 MG/2 ML VIAL IV PUSH (18:28)
[2022-01-01 18:38] LABS: Glucose Point of Care 107 mg/dl (65-105)
[2022-01-01 22:00] VITALS: BP 127/85; PULSE 78; RESP 17; TEMP 36.4; O2SAT 100
[2022-01-01] MEDS: MELATONIN 3 MG TABLET PO (23:58)
[2022-01-02 05:26] VITALS: BP 108/76; PULSE 89; RESP 18; TEMP 37.1; O2SAT 99
[2022-01-02] MEDS: metroNIDAZOLE 250 MG TABLET 500 MG PO ×4 (05:43→23:57)
[2022-01-02] MEDS: CENTRAL LINE FLUSH 10 ML IV PUSH ×3 (05:44→21:13)
[2022-01-02 06:01] LABS: Hematocrit 30.9 % (37.0-47.0); Hemoglobin 9.6 g/dL (12.0-15.0); Mean Corpuscular HGB Conc 31.1 g/dl (32-36); Mean Corpuscular Hemoglobin 25.5 pg (26-34); Mean Corpuscular Volume 82.2 fl (80-100); Platelet Count Result 452 k/mm3 (150-375); Red Blood Count 3.76 M/mm3 (4.2-5.4); Red Cell Distribution Width 13.7 % (11.5-14.5); White Blood Count 4.5 K/mm3 (4.5-10.0)
[2022-01-02 06:23] LABS: Alanine Aminotransferase 24 U/L (6-35); Albumin Level 3.6 g/dL (3.5-5.1); Alkaline Phosphatase 80 U/L (38-126); Anion Gap 6 mmol/L (8-16); Aspartate Amino Transferase 45 U/L (14-36); Bilirubin,Total 0.5 mg/dL (0.2-1.3); Blood Urea Nitrogen 5 mg/dL (7-17); Calcium 9.2 mg/dL (8.4-10.2); Carbon Dioxide 30 mmol/L (22-30); Chloride 102 mmol/L (98-107); Estimated CRCL calculation 111 ml/min; Estimated Glomerular Filt Rate > 60; Glucose 120 mg/dL (65-110); Lipase 397 U/L (23-300); Potassium 3.7 mmol/L (3.4-5.0); Sodium 138 mmol/L (137-145)
--- NOTE | 2022-01-02 08:34 | WPDGIPROGNO ---
Progress Note: A&P Assessment and Plan (1) Acute necrotizing pancreatitis: Code(s): K85.91 - Acute pancreatitis with uninfected necrosis, unspecified Status: Acute Assessment and Plan: She has acute necrotic collection around the pancreas measuring 12.3 x 4.9 cm- no need of acute intervention as she is comfortable and not signs of sepsis pain is improved, will advance diet slowly and eventually discontinue TPN when she is tolerating more diet she will need follow-up at tertiary center but currently no beds, also may need EUS to assess if evolving collection can be drainable or just treated medically 12/31/2021 she is improving. She is tolerating full liquids and I think that we can gradually advance her to a low-fat diet. She should be able to get off TPN soon. 01/01/2022 clinically she seems better although she did have more pain last evening which is a concern. 01/02/2022 she tolerated the full liquid diet. I told her that we are going to start a low-fat diet. I think she will tolerate this well. TPN has been discontinued (2) Chronic anemia: Code(s): D64.9 - Anemia, unspecified Status: Acute Assessment and Plan: 12/31/2021 no evidence of bleeding (3) Cholelithiasis: Code(s): K80.20 - Calculus of gallbladder without cholecystitis without obstruction Status: Acute Assessment and Plan: 01/01/2022 will need interval cholecystectomy at some point. surgery feels she would be best served at a pancreatico biliary surgery Center and they have spoken with Dr. Abbasi who was willing to see her after discharge. (4) Morbid obesity: Code(s): E66.01 - Morbid (severe) obesity due to excess calories Status: Acute Assessment and Plan: we talked about diet and the importance of a low-fat diet. She understands that she needs to cut back on calories in general. (5) Hypokalemia: Code(s): E87.6 - Hypokalemia Status: Acute Assessment and Plan: Resolve Subjective Date/time seen: 01/02/22 08:34 Review of Systems Review of Systems: All systems reviewed & are unremarkable except as noted in HPI and below Exam Const: General: alert Nutritional Appearance: obese Orientation/consciousness: patient oriented x3 Resp: Auscultation: clear to auscultation bilaterally Cardio: Rhythm: regular rhythm GI: Inspection: obesity GI Palp: Yes Soft to palpation and No Tenderness to palpation present (GI) Auscultation: normal bowel sounds Neuro: General: patient oriented x3 Objective Data Vital Signs Vital Signs: Vital Signs - 24 hr 01/01/22 08:35 01/01/22 10:24 01/01/22 15:06 Temperature 36.5 C Pulse Rate 88 Respiratory Rate 16 Blood Pressure 128/92 H Pulse Oximetry 97 93 Oxygen Delivery Room Air Room Air 01/01/22 22:00 01/01/22 20:00 01/02/22 05:26 Temperature 36.4 C L 37.1 C Pulse Rate 78 89 Respiratory Rate 17 18 Blood Pressure 127/85 108/76 Pulse Oximetry 100 99 Oxygen Delivery Room Air Intake/Output Intake/Output: Intake & Output 12/30/21 12/31/21 01/01/22 01/02/22 23:59 23:59 23:59 23:59 Intake Total 5145 1930 3555 450 Output Total 600 Balance 4545 1930 3555 450 Meds/Results Medications: Active Medications Generic Name Dose Route Start Last Admin Trade Name Freq PRN Reason Stop Dose Admin Acetaminophen 650 mg 12/30/21 11:47 01/01/22 23:58 Acetaminophen 325 Mg Tablet PO 650 mg Q4H PRN Administration Headache Lipase/Protease/Amylase 2 cap 01/01/22 08:00 01/01/22 16:58 Lipase/Amylase/Protease 12,000 Units Cap PO 2 cap TIDWM KIARA Administration Cefdinir 300 mg 01/02/22 09:00 Cefdinir 300 Mg Capsule PO Q12HR KIARA Enoxaparin Sodium 40 mg 12/25/21 09:00 01/01/22 08:30 Enoxaparin 40 Mg/0.4 Ml Syringe SUB-Q 40 mg DAILY KIARA Administration Hydromorphone HCl 0.5 mg 12/24/21 18:10 12/31/21 20:09 Hydromorphone Hcl Inj (*Crx)
[2022-01-02] MEDS: CEFDINIR 300 MG CAPSULE PO ×2 (09:19→21:13)
[2022-01-02] MEDS: PANTOPRAZOLE SODIUM IV 40 MG VIAL IV PUSH (09:19)
[2022-01-02] MEDS: LIPASE/AMYLASE/PROTEASE 12,000 UNITS CAP 2 CAP PO ×3 (09:19→16:41)
[2022-01-02] MEDS: ENOXAPARIN 40 MG/0.4 ML SYRINGE SUB-Q (09:20)
--- NOTE | 2022-01-02 11:50 | PM.IMPN ---
Progress Note: A&P Assessment and Plan (1) Acute pancreatitis: Code(s): K85.90 - Acute pancreatitis without necrosis or infection, unspecified Status: Acute (2) Cholelithiasis: Code(s): K80.20 - Calculus of gallbladder without cholecystitis without obstruction Status: Acute (3) Morbid obesity: Code(s): E66.01 - Morbid (severe) obesity due to excess calories Status: Acute (4) Acute necrotizing pancreatitis: Code(s): K85.91 - Acute pancreatitis with uninfected necrosis, unspecified Status: Acute Plan ?26 year old female patient with significant PMH of morbid obesity, Recent Pancreatitis Hospitalization, Cholelithiasis without Cholecystitis, HTN, and chronic anemia presented to the ER with complaints of having abdominal pain after being discharged from the hospital on 12/18/21 when she was treated for acute necrotizing pancreatitis. 1)Acute Necrotizing Pancreatitis: pain little worse today but tolerating oral C/w full liquid diet TPN has been stopped Currently on TPN Awaits bed at [facility], back up plan would be to stabilize and discharge with outpatient follow up with hepato biliary service in [facility] c/w zosyn c/w pain control meds 2)Cholelithiasis: present without symptoms of cholecystitis, appreciate surgery consultation, suspect this is contributing to patient's pancreatitis, patient will need to have her gallbladder removed to prevent recurrences, currently there are no signs of choledocholithiasis, however 3)HTN: Amlodipine on hOLD BP stable 4)DVT ppx: Lovenox 5)Code:Full 6)Dispo:pending improvement to be discharged home/await bed at [facility] 01/01/2022 interval history: patient is a 26 y/o female with abdominal pain is found to have acute necrotizing pancreatitis patient clinical symptoms are improving, her lipase levels are trending down to 497 compared to 718 upon arrival, patient has been followed by GI and surgery service patient was able to tolerate clear liquid and TPN was stopped, and currently on full liquid diet, today discussed with pharmacy id recommending to stop Zosyn after 7th dose today, and will start Omnicef and Flagyl from tomorrow, patient has been accepted by hepatobiliary surgical department at [facility] pending bed availability, discussed with Dr. Monzon general surgeon suggested patient will benefit going to the hospital or if possible close follow-up at biliary department as an outpatient as soon as possible, plan is to monitor patient until Tuesday and reach out to [facility] for transfer or early clinical outpatient appointment. patient continue to have abdominal pain on and off, remains clinically stable denies any nausea or vomiting fever or chills. 01/02: patient has appt with [facility] at [facility] for January 18, they do not see any need to see her sooner. If she does well on the cefdinir + flagyl, will d/c her on those with close outpatient f/u with HBS and ultimately she will edda her GB out. Subjective Date/time seen: 01/02/22 11:50 Objective Data Vital Signs Vital Signs: Vital Signs - 24 hr 01/01/22 15:06 01/01/22 22:00 01/01/22 20:00 Temperature 97.7 F 97.5 F L Pulse Rate 88 78 Respiratory Rate 16 17 Blood Pressure 128/92 H 127/85 Pulse Oximetry 93 100 Oxygen Delivery Room Air 01/02/22 05:26 Temperature 98.7 F Pulse Rate 89 Respiratory Rate 18 Blood Pressure 108/76 Pulse Oximetry 99 Oxygen Delivery Intake/Output Intake/Output: Intake & Output 12/30/21 12/31/21 01/01/22 01/02/22 23:59 23:59 23:59 23:59 Intake Total 5145 1930 3555 450 Output Total 600 Balance 4545 1930 3555 450 Meds/Results Medications: Active Medications Generic Name Dose Route Start Last Admin Trade Name Freq PRN Reason Stop Dose Admin Acetaminophen 650 mg 12/30/21 11:47 01/01/22 23:58 Acetaminophen 325 Mg Tablet PO 650 mg Q4H PRN Administration Headache Lipase/Protease/Amylase 2 cap 01/01/22 08:00 01/02/22 09:19
--- NOTE | 2022-01-02 13:45 | PM.PNGS ---
Progress Note: A&P Assessment and Plan (1) Cholelithiasis: Code(s): K80.20 - Calculus of gallbladder without cholecystitis without obstruction Status: Acute Assessment and Plan: Continuing to improve tolerating a low-fat diet. Will need to follow up as an outpatient for eventual laparoscopic cholecystectomy. Patient already has appointment with hepatobiliary surgeon as outpatient. Okay to discharge from surgical standpoint. (2) Acute necrotizing pancreatitis: Code(s): K85.91 - Acute pancreatitis with uninfected necrosis, unspecified Status: Acute (3) BMI 45.0-49.9, adult: Code(s): Z68.42 - Body mass index [BMI] 45.0-49.9, adult Status: Acute Subjective Subjective Date/Time Seen: 01/02/22 13:45 Interval history: Pain continuing to improve. No nausea or vomiting. Tolerating diet. Exam GI: GI Palp: Yes Soft to palpation, No Tenderness to palpation present (GI) and No Guarding due to palpation present (GI) Objective Data Vital Signs Vital Signs: Vital Signs - 24 hr 01/01/22 15:06 01/01/22 22:00 01/01/22 20:00 Temperature 36.5 C 36.4 C L Pulse Rate 88 78 Respiratory Rate 16 17 Blood Pressure 128/92 H 127/85 Pulse Oximetry 93 100 Oxygen Delivery Room Air 01/02/22 05:26 01/02/22 09:10 Temperature 37.1 C Pulse Rate 89 Respiratory Rate 18 Blood Pressure 108/76 Pulse Oximetry 99 Oxygen Delivery Room Air Intake/Output Intake/Output: Intake & Output 12/30/21 12/31/21 01/01/22 01/02/22 23:59 23:59 23:59 23:59 Intake Total 5145 1930 3555 450 Output Total 600 Balance 4545 1930 3555 450 Meds/Results Medications: Active Medications Generic Name Dose Route Start Last Admin Trade Name Freq PRN Reason Stop Dose Admin Acetaminophen 650 mg 12/30/21 11:47 01/01/22 23:58 Acetaminophen 325 Mg Tablet PO 650 mg Q4H PRN Administration Headache Lipase/Protease/Amylase 2 cap 01/01/22 08:00 01/02/22 12:30 Lipase/Amylase/Protease 12,000 Units Cap PO 2 cap TIDWM KIARA Administration Cefdinir 300 mg 01/02/22 09:00 01/02/22 09:19 Cefdinir 300 Mg Capsule PO 300 mg Q12HR KIARA Administration Enoxaparin Sodium 40 mg 12/25/21 09:00 01/02/22 09:20 Enoxaparin 40 Mg/0.4 Ml Syringe SUB-Q 40 mg DAILY KIARA Administration Hydromorphone HCl 0.5 mg 12/24/21 18:10 12/31/21 20:09 Hydromorphone Hcl Inj (*Crx) 1 Mg/Ml Syr IV PUSH 0.5 mg Q4H PRN Administration Pain Rated 7-10 Melatonin 3 mg 12/27/21 17:51 01/01/22 23:58 Melatonin 3 Mg Tablet PO 3 mg HS PRN Administration Sleep Metronidazole 500 mg 01/02/22 06:00 01/02/22 12:29 Metronidazole 250 Mg Tablet PO 500 mg Q6HR KIARA Administration Ondansetron HCl 4 mg 12/24/21 18:10 01/01/22 18:28 Ondansetron Inj 4 Mg/2 Ml Vial IV PUSH 4 mg Q4H PRN Administration Nausea Pantoprazole Sodium 40 mg 12/25/21 09:00 01/02/22 09:19 Pantoprazole Sodium Iv 40 Mg Vial IV PUSH 40 mg QAM KIARA Administration Sodium Chloride 10 ml 12/26/21 14:00 01/02/22 12:31 Central Line Flush IV PUSH 10 ml Q8HR KIARA Administration Sodium Chloride 10 ml 12/26/21 10:55 Central Line Flush IV PUSH PRN PRN with TPN bag changes Sodium Chloride 20 ml 12/26/21 10:55 Central Line Flush IV PUSH PRN PRN after blood draws Radiology Results: ITS Impressions Abdomen Ultrasound 12/25/21 11:36 IMPRESSION: 1. 3.3 x 3.3 cm complex fluid collection in the region of the head of the pancreas with differential including an acute necrotic collection or acute peripancreatic collection related to acute pancreatitis or fluid and debris within the duodenum or duodenal diverticulum. 2. Cholelithiasis. No intra-axial hepatic biliary ductal dilation or findings to suggest acute cholecystitis. Abdomen CT 12/25/21 13:32 IMPRESSION: 1. Acute necrotic pancreatitis with peripancreatic acute necrotic collecti
[2022-01-02 14:00] VITALS: BP 126/87; PULSE 82; RESP 18; TEMP 36.2; O2SAT 100
[2022-01-02] MEDS: MELATONIN 3 MG TABLET PO (21:16)
[2022-01-02] MEDS: ONDANSETRON INJ 4 MG/2 ML VIAL IV PUSH (21:45)
[2022-01-02 22:00] VITALS: BP 146/93; PULSE 96; RESP 18; TEMP 36.3; O2SAT 100
[2022-01-03] MEDS: metroNIDAZOLE 250 MG TABLET 500 MG PO ×2 (05:14→13:49)
[2022-01-03] MEDS: CENTRAL LINE FLUSH 10 ML IV PUSH ×2 (05:15→13:50)
[2022-01-03 05:30] LABS: Hematocrit 31.4 % (37.0-47.0); Hemoglobin 9.5 g/dL (12.0-15.0); Mean Corpuscular HGB Conc 30.3 g/dl (32-36); Mean Corpuscular Hemoglobin 25.2 pg (26-34); Mean Corpuscular Volume 83.3 fl (80-100); Platelet Count Result 411 k/mm3 (150-375); Red Blood Count 3.77 M/mm3 (4.2-5.4); Red Cell Distribution Width 13.8 % (11.5-14.5); White Blood Count 4.9 K/mm3 (4.5-10.0)
[2022-01-03 05:43] LABS: Alanine Aminotransferase 31 U/L (6-35); Albumin Level 3.8 g/dL (3.5-5.1); Alkaline Phosphatase 84 U/L (38-126); Anion Gap 9 mmol/L (8-16); Aspartate Amino Transferase 44 U/L (14-36); Bilirubin,Total 0.6 mg/dL (0.2-1.3); Blood Urea Nitrogen 7 mg/dL (7-17); Calcium 8.8 mg/dL (8.4-10.2); Carbon Dioxide 29 mmol/L (22-30); Chloride 101 mmol/L (98-107); Estimated CRCL calculation 126 ml/min; Estimated Glomerular Filt Rate > 60; Glucose 127 mg/dL (65-110); Lipase 418 U/L (23-300); Potassium 3.9 mmol/L (3.4-5.0); Sodium 139 mmol/L (137-145)
[2022-01-03 06:00] VITALS: BP 115/76; PULSE 98; RESP 18; TEMP 36.7; O2SAT 100
[2022-01-03] MEDS: LIPASE/AMYLASE/PROTEASE 12,000 UNITS CAP 2 CAP PO ×2 (08:50→13:49)
[2022-01-03] MEDS: ENOXAPARIN 40 MG/0.4 ML SYRINGE SUB-Q (08:51)
[2022-01-03] MEDS: PANTOPRAZOLE SODIUM IV 40 MG VIAL IV PUSH (08:51)
[2022-01-03] MEDS: CEFDINIR 300 MG CAPSULE PO (08:51)
[2022-01-03 09:08] VITALS: PULSE 88; O2SAT 98
--- NOTE | 2022-01-03 10:19 | WPDGIPROGNO ---
Progress Note: A&P Assessment and Plan (1) Acute necrotizing pancreatitis: Code(s): K85.91 - Acute pancreatitis with uninfected necrosis, unspecified Status: Acute Assessment and Plan: She has acute necrotic collection around the pancreas measuring 12.3 x 4.9 cm- no need of acute intervention as she is comfortable and not signs of sepsis pain is improved, will advance diet slowly and eventually discontinue TPN when she is tolerating more diet she will need follow-up at tertiary center but currently no beds, also may need EUS to assess if evolving collection can be drainable or just treated medically 12/31/2021 she is improving. She is tolerating full liquids and I think that we can gradually advance her to a low-fat diet. She should be able to get off TPN soon. 01/01/2022 clinically she seems better although she did have more pain last evening which is a concern. 01/02/2022 she tolerated the full liquid diet. I told her that we are going to start a low-fat diet. I think she will tolerate this well. 01/03/2022 TPN has been discontinued. She is tolerating her low-fat diet. Explain her that she will stay on a low-fat diet for the next few weeks along with her pancreatic enzyme supplement. I explained she should take 1 Creon at the beginning of a meal and another 1 about a [address] through. (2) Chronic anemia: Code(s): D64.9 - Anemia, unspecified Status: Acute Assessment and Plan: 12/31/2021 no evidence of bleeding (3) Cholelithiasis: Code(s): K80.20 - Calculus of gallbladder without cholecystitis without obstruction Status: Acute Assessment and Plan: 01/01/2022 will need interval cholecystectomy at some point. surgery feels she would be best served at a pancreatico biliary surgery Center and they have spoken with Dr. Abbasi who was willing to see her after discharge. She has an appointment to see him on January 18. She was also given the name of the physician at [facility] who will she will try to see sooner if possible. (4) Morbid obesity: Code(s): E66.01 - Morbid (severe) obesity due to excess calories Status: Acute Assessment and Plan: we talked about diet and the importance of a low-fat diet. She understands that she needs to cut back on calories in general. (5) Hypokalemia: Code(s): E87.6 - Hypokalemia Status: Acute Assessment and Plan: Resolved Subjective Date/time seen: 01/03/22 10:19 Exam Const: General: comfortable, no acute distress and alert; No confusion Nutritional Appearance: obese Orientation/consciousness: patient oriented x3 and No confusion Other: obese HENMT: General nose exam: Normal nares present Mouth: Yes moist mucous membranes Eyes: General: appearance normal, both eyes and all related structures Sclera: sclerae normal Pupils: Equal, round and reactive pupils present EOM: EOMs intact bilaterally Neck: Neck: supple and no JVD Resp: Effort & Inspection: normal respiratory effort Auscultation: clear to auscultation bilaterally Cardio: Rate: regular rate and tachycardic Rhythm: regular rhythm Heart sounds: no gallops, no murmurs and no rubs GI: Inspection: non-distended and obesity Auscultation: normal bowel sounds Other: mild discomfort with palpation Skin: General skin exam: normal color and no rashes or lesions noted Wounds: no wounds Neuro: General: patient oriented x3 and No confusion Cranial nerves: Yes Equal, round and reactive pupils present and Yes Normal hearing present Speech: normal speech and No Abnormal speech present Motor exam (neuro): 5/5 motor strength present throughout and Normal motor muscle tone present throughout Sensory Exam: normal sensation Extrem: General: normal to inspection, no edema and no pedal edema Psych: Mental Status: mental status grossly normal Affect: normal affect Objective Data Vital Signs Vital Signs:
[2022-01-03 10:58] LABS: CRP 2.2 mg/dL (<1.0)
[2022-01-03 11:12] LABS: Procalcitonin 0.1 ng/mL
--- NOTE | 2022-01-03 11:37 | PM.PNGS ---
Progress Note: A&P Assessment and Plan (1) Cholelithiasis: Code(s): K80.20 - Calculus of gallbladder without cholecystitis without obstruction Status: Acute Assessment and Plan: Continuing to improve tolerating a low-fat diet. Will need to follow up as an outpatient for eventual laparoscopic cholecystectomy. Patient already has appointment with hepatobiliary surgeon as outpatient. Okay to discharge from surgical standpoint. (2) Acute necrotizing pancreatitis: Code(s): K85.91 - Acute pancreatitis with uninfected necrosis, unspecified Status: Acute (3) BMI 45.0-49.9, adult: Code(s): Z68.42 - Body mass index [BMI] 45.0-49.9, adult Status: Acute Subjective Subjective Date/Time Seen: 01/03/22 11:37 Interval history: Not much abdominal pain. Tolerating low-fat diet. No fevers. Exam GI: Inspection: non-distended GI Palp: Yes Soft to palpation, No Tenderness to palpation present (GI) and No Guarding due to palpation present (GI) Objective Data Vital Signs Vital Signs: Vital Signs - 24 hr 01/02/22 14:00 01/02/22 22:00 01/03/22 06:00 Temperature 36.2 C L 36.3 C L 36.7 C Pulse Rate 82 96 98 Respiratory Rate 18 18 18 Blood Pressure 126/87 146/93 H 115/76 Pulse Oximetry 100 100 100 Intake/Output Intake/Output: Intake & Output 12/31/21 01/01/22 01/02/22 01/03/22 23:59 23:59 23:59 23:59 Intake Total 1930 3555 1170 1040 Output Total 300 Balance 1930 3555 1170 740 Meds/Results Medications: Active Medications Generic Name Dose Route Start Last Admin Trade Name Freq PRN Reason Stop Dose Admin Acetaminophen 650 mg 12/30/21 11:47 01/01/22 23:58 Acetaminophen 325 Mg Tablet PO 650 mg Q4H PRN Administration Headache Lipase/Protease/Amylase 2 cap 01/01/22 08:00 01/03/22 08:50 Lipase/Amylase/Protease 12,000 Units Cap PO 2 cap TIDWM KIARA Administration Cefdinir 300 mg 01/02/22 09:00 01/03/22 08:51 Cefdinir 300 Mg Capsule PO 300 mg Q12HR KIARA Administration Enoxaparin Sodium 40 mg 12/25/21 09:00 01/03/22 08:51 Enoxaparin 40 Mg/0.4 Ml Syringe SUB-Q 40 mg DAILY KIARA Administration Hydromorphone HCl 0.5 mg 12/24/21 18:10 12/31/21 20:09 Hydromorphone Hcl Inj (*Crx) 1 Mg/Ml Syr IV PUSH 0.5 mg Q4H PRN Administration Pain Rated 7-10 Melatonin 3 mg 12/27/21 17:51 01/02/22 21:16 Melatonin 3 Mg Tablet PO 3 mg HS PRN Administration Sleep Metronidazole 500 mg 01/02/22 06:00 01/03/22 05:14 Metronidazole 250 Mg Tablet PO 500 mg Q6HR KIARA Administration Miscellaneous Information 1 each 01/02/22 00:01 Hydromorphone Will Auto Discontinue On 24 @ 18:00 If Not Continued. XX 02/01/22 00:00 CLARIFY KIARA Ondansetron HCl 4 mg 12/24/21 18:10 01/02/22 21:45 Ondansetron Inj 4 Mg/2 Ml Vial IV PUSH 4 mg Q4H PRN Administration Nausea Pantoprazole Sodium 40 mg 12/25/21 09:00 01/03/22 08:51 Pantoprazole Sodium Iv 40 Mg Vial IV PUSH 40 mg QAM KIARA Administration Sodium Chloride 10 ml 12/26/21 14:00 01/03/22 05:15 Central Line Flush IV PUSH 10 ml Q8HR KIARA Administration Sodium Chloride 10 ml 12/26/21 10:55 Central Line Flush IV PUSH PRN PRN with TPN bag changes Sodium Chloride 20 ml 12/26/21 10:55 Central Line Flush IV PUSH PRN PRN after blood draws Radiology Results: ITS Impressions Abdomen Ultrasound 12/25/21 11:36 IMPRESSION: 1. 3.3 x 3.3 cm complex fluid collection in the region of the head of the pancreas with differential including an acute necrotic collection or acute peripancreatic collection related to acute pancreatitis or fluid and debris within the duodenum or duodenal diverticulum. 2. Cholelithiasis. No intra-axial hepatic biliary ductal dilation or findings to suggest acute cholecystitis. Abdomen CT 12/25/21 13:32 IMPRESSION: 1. Acute necrotic pancreatitis with peripancreatic acute necro
[2022-01-03 13:18] LABS: Pregnancy On Board Control Positive; Urine Pregnancy Test Negative
[2022-01-03 14:00] VITALS: BP 128/96; PULSE 93; RESP 18; TEMP 35.7; O2SAT 100
--- NOTE | 2022-01-03 15:13 | PM.DS ---
DS: Admitting Diagnosis Discharge Date January 03, 2022 Admitting Diagnosis acute on chronic pancreatitis DS: Discharge Diagnosis Discharge Diagnosis (1) Acute pancreatitis: Code(s): K85.90 - Acute pancreatitis without necrosis or infection, unspecified Status: Acute (2) Cholelithiasis: Code(s): K80.20 - Calculus of gallbladder without cholecystitis without obstruction Status: Acute (3) Morbid obesity: Code(s): E66.01 - Morbid (severe) obesity due to excess calories Status: Acute (4) Acute necrotizing pancreatitis: Code(s): K85.91 - Acute pancreatitis with uninfected necrosis, unspecified Status: Acute Plan Patient is a 26 y/o female with abdominal pain is found to have acute necrotizing pancreatitis patient clinical symptoms are improving, her lipase levels are trending down to 497 compared to 718 upon arrival, patient has been followed by GI and surgery service patient was able to tolerate clear liquid and TPN was stopped, and currently on full liquid diet, today discussed with pharmacy id recommending to stop Zosyn after 7th dose today, and will start Omnicef and Flagyl from tomorrow, patient has been accepted by hepatobiliary surgical department at [facility] pending bed availability, discussed with Dr. Monzon general surgeon suggested patient will benefit going to the hospital or if possible close follow-up at biliary department as an outpatient as soon as possible, plan is to monitor patient until Tuesday and reach out to [facility] for transfer or early clinical outpatient appointment. patient continue to have abdominal pain on and off, remains clinically stable denies any nausea or vomiting fever or chills. patient has appt with HBS at [facility] for January 18, they do not see any need to see her sooner. If she does well on the cefdinir + flagyl, will d/c her on those with close outpatient f/u with HBS and ultimately she will edda her GB out. DS: Summary Hospital Course Hospital Course: 26-year-old female past medical history significant for morbid obesity, recent pancreatitis hospitalization, cholelithiasis, hypertension chronic anemia presented with abdominal pain was found to be in pancreatitis again. CT scan showed necrotizing pancreatitis and she was placed on broad-spectrum antibiotics. See above for details. She was discharged on oral cefdinir and Flagyl with close outpatient follow-up with hepatobiliary surgery and eventually General surgery to take her gallbladder out. Time Spent with Patient Time attestation: Total time spent providing and/or coordinating discharge services: Exam Narrative: morbidly obese Patient is comfortable, NAD HEENT: eyes are clear and none icteric LUNGS: normal respiratory effort ABD: distended Lower extremities: no edema SKIN: nonjaundiced Neuro: grossly intact. DS: Data Data Completed and Pending Labs on day of discharge: Labs from last 24 hours 01/03/22 01/03/22 01/03/22 10:27 10:23 10:23 WBC RBC Hgb Hct MCV MCH MCHC RDW Plt Count MPV Sodium Potassium Chloride Carbon Dioxide Anion Gap BUN Creatinine Estim Creat Clear Calc Estimated GFR Glucose Calcium Total Bilirubin AST ALT Alkaline Phosphatase C-Reactive Protein 2.2 H Total Protein Albumin Lipase Procalcitonin 0.1 Urine Test Negative 01/03/22 01/03/22 05:23 05:23 WBC 4.9 RBC 3.77 L Hgb 9.5 L Hct 31.4 L MCV 83.3 MCH 25.2 L MCHC 30.3 L RDW 13.8 Plt Count 411 H MPV 9.0 Sodium 139 Potassium 3.9 Chloride 101 Carbon Dioxide 29 Anion Gap 9 BUN 7 Creatinine 0.70 Estim Creat Clear Calc 126 Estimated GFR > 60 Glucose 127 H Calcium 8.8 Total Bilirubin 0.6 AST 44 H ALT 31 Alkaline Phosphatase 84 C-Reactive Protein Total Protein 8.0 Albumin 3.8 Lipase 418 H Procalcitonin Ur
== END 2022-01-03 18:05 | disposition home health service (06) | DRG 282 ==
LOC: ANHED 18:15 → ANH3MEDSUR 19:19
PROVIDERS: Internal Medicine; Physician Assistant; Surgery; Admitting Provider Chiropractor; Emergency Provider General Practice; PCP Nurse Practitioner Family; Visit Provider Student in an Organized Health Care Education/Training Program
DX: K85.11 Biliary acute pancreatitis with uninfected necrosis (principal); K80.20 Calculus of gallbladder without cholecystitis without obstruction; K86.3 Pseudocyst of pancreas; E66.01 Morbid (severe) obesity due to excess calories; Z68.41 Body mass index [BMI] 40.0-44.9, adult; D64.9 Anemia, unspecified; I10 Essential (primary) hypertension; Z20.822 Contact with and (suspected) exposure to COVID-19; R79.89 Other specified abnormal findings of blood chemistry; E87.6 Hypokalemia
CPT/HCPCS: 36415; 36569; 74160; 74177; 76705; 80048; 80053; 81001; 81003; 81025; 82948; 83605; 83615; 83690; 83735; 84100; 84145; 84466; 84478; 85025; 85027; 85610; 85730; 86140; 87040; 96361; 96374; 96375; 96376; 99285; A9270; C1751; C9113; C9803; G0378; G0379; J0131; J0743; J1170; J1200; J1650; J2270; J2405; J2543; J3480; J7030; J7040; Q9967; U0003; U0005

== ENCOUNTER 2022-01-10 05:25 | Emergency (ER) | payer OTHER, SELFPAY ==
--- NOTE | ~2022-01-10 | CT_ITS ---
EXAMINATION: CT abdomen pelvis w con DATE: 01/10/2022 08:46 INDICATION: Abdominal pain TECHNIQUE: Computed tomography (CT) of the abdomen and pelvis was performed with 100 mL Omnipaque-300 intravenous contrast. Automated exposure control and iterative reconstruction technique were employe d. The dose-length product was 1435.33 mGy-cm. COMPARISON: 01/03/2022 FINDINGS: Mild dependent atelectasis in the bilateral lower lobes. Heart size is normal. No pericardial or pleu ral effusion. Liver, gallbladder, spleen, bilateral adrenal glands and kidneys are normal. Again seen is an organized-appearing multi lobulated peripancreatic fluid collection with thickened enhancing w alls surrounding the body and tail the pancreas cyst with acute necrotizing pancreatitis. The acute n ecrotic fluid collection is slightly increased in size measuring 12.2 x 8.0 x 10.0 cm where previousl y it measured 11.3 x 6.8 x 9.3 cm. The fluid collection exerts mass effect upon the lesser curvature of the stomach. There is surrounding peripancreatic stranding which extends around the head of the pa ncreas and in the retroperitoneum caudal to the duodenum. Very small amount of likely reactive ascite s in the pelvis. No other abnormal fluid collections identified. No free intraperitoneal gas. Bowels including the appendix are normal. Bladder, anteverted uterus and bilateral adnexa are unremarkable. Vasculature of the abdomen and pelvis is unremarkable. Specifically the superior mesenteric, splenic and portal veins are patent with no evident thrombosis. A few mildly prominent but still normal-sized likely reactive lymph nodes in the upper abdomen. No pathologically enlarged abdominal or pelvic lym phadenopathy. Bones are unremarkable. IMPRESSION: 1. Uncoiling acute necrotic pancreatitis with slight increase in size of a large multilobulated acute necrotic collection along the body and tail of the pancreas. Reviewed, dictated and finalized at location A. IMPRESSION: 1. Uncoiling acute necrotic pancreatitis with slight increase in size of a larg e multilobulated acute necrotic collection along the body and tail of the pancr eas.
[2022-01-10 05:31] VITALS: BP 149/98; PULSE 120; RESP 16; TEMP 36.5; O2SAT 100
[2022-01-10 07:03] LABS: Basophils Percent Auto 0.6 % (0.2-1.2); Eosinophils Absolute Auto 0.1 K/mm3 (0-0.3); Eosinophils Percent Auto 0.9 % (0-4.4); Hematocrit 36.7 % (37.0-47.0); Hemoglobin 11.3 g/dL (12.0-15.0); Immature Granulocyte Absolute 0.02 K/mm3 (0.00-0.031); Immature Granulocyte Percent A 0.4 % (0-0.5); Mean Corpuscular HGB Conc 30.8 g/dl (32-36); Mean Corpuscular Hemoglobin 25.6 pg (26-34); Monocytes Absolute Auto 0.5 K/mm3 (0.1-0.6); Neutrophils Absolute Auto 3.9 K/mm3 (1.3-6.7); Neutrophils Percent Auto 73.1 % (45.5-73.1); Platelet Count Result 362 k/mm3 (150-375); Red Blood Count 4.42 M/mm3 (4.2-5.4); Red Cell Distribution Width 15.2 % (11.5-14.5); White Blood Count 5.3 K/mm3 (4.5-10.0)
[2022-01-10 07:15] LABS: Alanine Aminotransferase 31 U/L (6-35); Albumin Level 3.8 g/dL (3.5-5.1); Alkaline Phosphatase 235 U/L (38-126); Anion Gap 12 mmol/L (8-16); Aspartate Amino Transferase 87 U/L (14-36); Bilirubin,Total 1.5 mg/dL (0.2-1.3); Blood Urea Nitrogen 3 mg/dL (7-17); Carbon Dioxide 27 mmol/L (22-30); Chloride 100 mmol/L (98-107); Estimated CRCL calculation 124 ml/min; Estimated Glomerular Filt Rate > 60; Glucose 172 mg/dL (65-110); Potassium 3.1 mmol/L (3.4-5.0); Sodium 139 mmol/L (137-145)
--- NOTE | 2022-01-10 07:23 | ED.ABDPAIN ---
HPI - Abdominal Pain General Chief Complaint: Abdominal Pain Stated Complaint: abd pain, hx pancreatitis Time Seen by Provider: 01/10/22 07:02 Source: RN notes reviewed History of Present Illness HPI narrative: Patient presents emergency department from home for abdominal pain. Patient states symptoms began yesterday pain is located in the upper abdomen and the right side of the abdomen described as sharp and stabbing in nature associate with nausea but denies any vomiting. Denies any fevers or chills diarrhea or any other symptoms states she has a history of pancreatitis x2 and was just discharged in the hospital proximally 1 week ago for pancreatitis states her pancreatitis is secondary to gallstone Related Data Home Medications Medication Instructions Recorded Confirmed norethindrone (contraceptive) 0.35 1 tablet PO DAILY 12/13/21 12/24/21 mg tablet Allergies Allergy/AdvReac Type Severity Reaction Status Date / Time lactose Allergy Abdominal Verified 12/16/21 17:34 Pain hydrochlorothiazide AdvReac Other Verified 12/18/21 12:49 Review of Systems Review of Systems: Gen.: Denies fevers or chills ENT: Denies congestion Respiratory: Denies shortness of breath or cough CV: Denies chest pain or palpitations GI: See HPI Musculoskeletal: Denies back pain or muscle pain Neuro: Denies numbness, tingling, weakness or focal weakness Skin: Denies rash Except as documented, all other systems reviewed and negative Gen.: Denies fevers or chills PMFSH Past Medical History Medical History Cholelithiasis Hypertension Morbid obesity Family History Family History Mother Heart disease Renal failure Hypertension Grandparent Hypertension History of TIAs Social History Social History Social History: Patient currently lives with her mother and her grandmother. She has no pets. Her mother Anita will be her surrogate. She wishes to be a full code. Smoking status: Never smoker Second hand tobacco smoke exposure: No Alcohol intake: current Drinks per week: 1 Substance use: current Substance use type: marijuana Other substance usage details: marijuana not often once every 2 months Last use: 11/09/21 Additional living arrangements comments: Lives with her mother and grandmother Additional occupation/education comments: [employer] in [place] Gender identity (if verbalized by the patient): Female Sexual Orientation (if Verbalized by the Patient): Straight or Heterosexual Spiritual care concerns: No Agree to blood products: Yes Exam Narrative: APPEARANCE: No acute distress, nontoxic, resting in bed HEENT: Normocephalic, atraumatic, OMM RESPIRATORY: No respiratory distress, clear to auscultation bilaterally with no rhonchi wheezing or rales CARDIOVASCULAR: RRR s murmur ABDOMINAL: Soft nondistended tender palpation in epigastric and right upper quadrant and left upper quadrant and right lower quadrant no tenderness in the left lower quadrant no rebound or guarding MUSCULOSKELETAl: Moves all extremities. No clubbing, cyanosis or edema. NEURO: Awake and alert. Following commands, speech normal, no focal deficits SKIN:: Warm, dry. Normal Color PSYCHIATRIC: Normal affect/mood Course Course Emergency Course: Reviewed old records patient was admitted to our facility for necrotizing pancreatitis she was seen by general surgery and GI is felt the patient need to see hepatobiliary secondary to her complicated case and has been scheduled to see hepatobiliary as an outpatient Discussed with the patient she states she is scheduled to see Dr. Abbasi at [facility] on January 18 I discussed her need for admission and she does request transfer to [facility] at this time Discussed with Dr. Witt or hepatobiliary at [facility] a
[2022-01-10 07:41] LABS: Lipase 8074 U/L (23-300)
[2022-01-10] MEDS: SODIUM CHLORIDE 0.9% IV 1,000 ML 999 ML IV CONT ×2 (07:45→09:31)
[2022-01-10 07:49] LABS: Appearance Urine Slightly Cloudy (Clear); Bilirubin Urine 2+ (Negative); Color Urine Amber (Yellow); Glucose Urine UA Negative (Negative); Ketones Urine 1+ mg/dL (Negative); Leukocyte Esterase Ur 1+ LEU/UL (Negative); Nitrate Urine Positive (Negative); Protein Urine 1+ mg/dL (Negative); Specific Grav Ur 1.025 (1.001-1.035); Urobilinogen Urine 0.2 mg/dL (<2.0); pH Urine 5.5 (5.0-9.0)
[2022-01-10] MEDS: ONDANSETRON INJ 4 MG/2 ML VIAL IV PUSH (07:51)
[2022-01-10] MEDS: MORPHINE SULFATE (*CRX) 4 MG/ML INJ IV PUSH (07:51)
[2022-01-10 07:54] LABS: Add Urine Microscopic? YES; Bacteria Urine Trace /hpf; Blood Urine Trace-Intact (Negative); Calcium Oxalate Crystals Urine Present /hpf; Mucus Urine Rare /lpf; Squamous Epithelial Cell Urine Moderate /hpf (Few); WBC Urine 0-3 /hpf
[2022-01-10 09:17] VITALS: BP 161/98; PULSE 72; O2SAT 99
[2022-01-10] MEDS: POTASSIUM CHLORIDE INJ 40 MEQ in SODIUM CHLORIDE 0.9% IV 500 ML 130 MEQ IVPB (09:59)
[2022-01-10 10:53] LABS: SARS-CoV-2 RNA PCR Negative
[2022-01-10] MEDS: SODIUM CHLORIDE 0.9% IV 1,000 ML 150 ML IV CONT (11:15)
[2022-01-10 11:34] VITALS: BP 156/93; PULSE 80; TEMP 36.6; O2SAT 100
== END 2022-01-10 13:30 | disposition short-term general hospital (02) ==
PROVIDERS: Emergency Medicine; Emergency Provider Emergency Medicine; PCP Nurse Practitioner Family
DX: K85.91 Acute pancreatitis with uninfected necrosis, unspecified (principal); E87.6 Hypokalemia; Z20.822 Contact with and (suspected) exposure to COVID-19; I10 Essential (primary) hypertension; E66.01 Morbid (severe) obesity due to excess calories; Z68.42 Body mass index [BMI] 45.0-49.9, adult
CPT/HCPCS: 36415; 74177; 80053; 81001; 81025; 83690; 85025; 96361; 96365; 96366; 96375; 99285; C9803; J2270; J2405; J3480; J7030; J7040; Q9967; U0003; U0005

== ENCOUNTER 2022-05-27 11:10 | Outpatient (CLI) | payer OTHER, SELFPAY ==
[2022-05-27 20:46] LABS: Alanine Aminotransferase 19 U/L (6-35); Albumin Level 4.3 g/dL (3.5-5.1); Alkaline Phosphatase 105 U/L (38-126); Anion Gap 5 mmol/L (8-16); Aspartate Amino Transferase 36 U/L (14-36); Basophils Absolute Auto 0.1 K/mm3 (0.0-0.1); Basophils Percent Auto 1.4 % (0.2-1.2); Bilirubin,Total 0.6 mg/dL (0.2-1.3); Blood Urea Nitrogen 9 mg/dL (7-17); Calcium 8.6 mg/dL (8.4-10.2); Carbon Dioxide 30 mmol/L (22-30); Chloride 101 mmol/L (98-107); Cholesterol 210 mg/dL (0-200); Eosinophils Absolute Auto 0.2 K/mm3 (0-0.3); Eosinophils Percent Auto 3.8 % (0-4.4); Estimated Glomerular Filt Rate > 60; Glucose 106 mg/dL (65-110); HDL Direct 46 mg/dL; Hemoglobin 13.3 g/dL (12.0-15.0); Immature Granulocyte Absolute 0.01 K/mm3 (0.00-0.031); Immature Granulocyte Percent A 0.2 % (0-0.5); Lipase 24 U/L (23-300); Lymphocytes Absolute Auto 1.97 K/mm3 (0.9-3.2); Lymphocytes Percent Auto 35.2 % (18.3-44.2); Mean Corpuscular HGB Conc 31.7 g/dl (32-36); Mean Corpuscular Hemoglobin 26.6 pg (26-34); Mean Platelet Volume 9.4 fl (7.4-10.4); Monocytes Absolute Auto 0.5 K/mm3 (0.1-0.6); Monocytes Percent Auto 9.1 % (2.6-8.5); Neutrophils Absolute Auto 2.8 K/mm3 (1.3-6.7); Neutrophils Percent Auto 50.3 % (45.5-73.1); Platelet Count Result 360 k/mm3 (150-375); Potassium 3.7 mmol/L (3.4-5.0); Red Cell Distribution Width 13.2 % (11.5-14.5); Sodium 136 mmol/L (137-145); Triglycerides 89 mg/dL (<150); White Blood Count 5.6 K/mm3 (4.5-10.0)
[2022-05-27 20:56] LABS: LDL Cholesterol Direct 110 mg/dL
[2022-05-27 21:06] LABS: Hemoglobin A1C 5.2 % (<5.7)
== END 2022-05-27 11:11 | disposition home or self-care (01) ==
LOC: ANHGOSHLAB 11:11
PROVIDERS: PCP Emergency Medicine; Visit Provider Emergency Medicine
DX: D64.9 Anemia, unspecified (principal); Z68.42 Body mass index [BMI] 45.0-49.9, adult; E66.01 Morbid (severe) obesity due to excess calories; Z87.19 Personal history of other diseases of the digestive system
CPT/HCPCS: 36415; 80053; 80061; 83036; 83690; 84443; 85025

== ENCOUNTER 2022-07-15 13:43 | Outpatient (CLI) | payer OTHER, SELFPAY ==
--- NOTE | ~2022-07-15 | CT_ITS ---
EXAMINATION: CT diagnostic chest wo con DATE: 07/15/2022 13:59 INDICATION: Lung nodule TECHNIQUE: Computed tomography (CT) of the chest was performed without intravenous contrast. The dose -length product (DLP) was 295.56 mGy-cm. Automated exposure control and iterative reconstruction tech nique were employed. COMPARISON: 12/14/2021 FINDINGS: There is a new nodular opacity in the left lower lobe measuring 1.9 x 1.8 cm. This has cent ral groundglass opacity surrounded by crescentic consolidation. There are also minimal airspace opaci ties in the medial aspect of the left upper lobe. No pleural effusion or pneumothorax. No pathologica lly enlarged thoracic lymph nodes are identified. The heart size is normal. There has been interval i nsertion of a drain into the upper abdomen draining pseudocysts into the stomach. No residual pseudoc yst is identified in the partially imaged upper abdomen. IMPRESSION: 1. Airspace opacities of the left lung, including one demonstrating an apparent atoll sign in the lef t lower lobe, which could reflect infection (such as fungal pneumonia) or less likely organizing pneu monia. Follow-up CT in three months is recommended. Reviewed, dictated and finalized at location L. E FE[facility]ER IMPRESSION: 1. Airspace opacities of the left lung, including one demonstrating an apparent atoll sign in the left lower lobe, which could reflect infection (such as marva al pneumonia) or less likely organizing pneumonia. Follow-up CT in three months is recommended.
== END 2022-07-15 13:44 | disposition home or self-care (01) ==
LOC: ANHIMG 13:47
PROVIDERS: PCP Emergency Medicine; Visit Provider Emergency Medicine
DX: R91.1 Solitary pulmonary nodule (principal); R91.8 Other nonspecific abnormal finding of lung field
CPT/HCPCS: 71250

== ENCOUNTER 2023-04-29 08:20 | Outpatient (CLI) | payer OTHER, SELFPAY ==
[2023-04-29 18:54] LABS: Alanine Aminotransferase 39 U/L (6-35); Albumin Level 3.9 g/dL (3.5-5.1); Alkaline Phosphatase 102 U/L (38-126); Anion Gap 9 mmol/L (8-16); Aspartate Amino Transferase 56 U/L (14-36); Bilirubin,Total 0.7 mg/dL (0.2-1.3); Blood Urea Nitrogen 8 mg/dL (7-17); Carbon Dioxide 27 mmol/L (22-30); Chloride 100 mmol/L (98-107); Cholesterol 162 mg/dL (0-200); Estimated Glomerular Filt Rate > 60; Glucose 170 mg/dL (65-110); HDL Direct 45 mg/dL; Potassium 3.7 mmol/L (3.4-5.0); Sodium 136 mmol/L (137-145); Triglycerides 120 mg/dL (<150)
[2023-04-29 19:05] LABS: LDL Cholesterol Direct 85 mg/dL
== END 2023-04-29 08:21 | disposition home or self-care (01) ==
LOC: ANHGOSHLAB 08:22
PROVIDERS: PCP Emergency Medicine; Visit Provider Emergency Medicine
DX: R91.1 Solitary pulmonary nodule (principal); Z68.43 Body mass index [BMI] 50.0-59.9, adult
CPT/HCPCS: 36415; 80053; 80061

== ENCOUNTER 2023-09-01 09:21 | Outpatient (CLI) | payer OTHER, SELFPAY ==
[2023-09-01 16:44] LABS: Basophils Percent Auto 0.4 % (0.2-1.2); Eosinophils Absolute Auto 0.1 K/mm3 (0-0.3); Eosinophils Percent Auto 2.3 % (0-4.4); Hematocrit 40.5 % (37.0-47.0); Hemoglobin 12.9 g/dL (12.0-15.0); Immature Granulocyte Absolute 0.02 K/mm3 (0.00-0.031); Immature Granulocyte Percent A 0.4 % (0-0.5); Lymphocytes Absolute Auto 1.24 K/mm3 (0.9-3.2); Lymphocytes Percent Auto 26.4 % (18.3-44.2); Mean Corpuscular HGB Conc 31.9 g/dl (32-36); Mean Corpuscular Volume 81.5 fl (80-100); Mean Platelet Volume 9.8 fl (7.4-10.4); Monocytes Absolute Auto 0.5 K/mm3 (0.1-0.6); Monocytes Percent Auto 10.4 % (2.6-8.5); Neutrophils Absolute Auto 2.8 K/mm3 (1.3-6.7); Neutrophils Percent Auto 60.1 % (45.5-73.1); Platelet Count Result 365 k/mm3 (150-375); Red Blood Count 4.97 M/mm3 (4.2-5.4); Red Cell Distribution Width 12.1 % (11.5-14.5); White Blood Count 4.7 K/mm3 (4.5-10.0)
[2023-09-01 17:07] LABS: Alanine Aminotransferase 57 U/L (6-35); Albumin Level 3.8 g/dL (3.5-5.1); Alkaline Phosphatase 121 U/L (38-126); Anion Gap 5 mmol/L (8-16); Aspartate Amino Transferase 90 U/L (14-36); Bilirubin,Total 0.8 mg/dL (0.2-1.3); Blood Urea Nitrogen 8 mg/dL (7-17); Calcium 9.2 mg/dL (8.4-10.2); Carbon Dioxide 31 mmol/L (22-30); Chloride 100 mmol/L (98-107); Cholesterol 161 mg/dL (0-200); Estimated Glomerular Filt Rate > 60; Glucose 205 mg/dL (65-110); HDL Direct 35 mg/dL; Potassium 3.7 mmol/L (3.4-5.0); Sodium 136 mmol/L (137-145); Triglycerides 115 mg/dL (<150)
[2023-09-01 17:17] LABS: LDL Cholesterol Direct 105 mg/dL
[2023-09-02 03:09] LABS: Hemoglobin A1C 8.9 % (<5.7)
== END 2023-09-01 09:22 | disposition home or self-care (01) ==
LOC: ANHGOSHLAB 09:22
PROVIDERS: PCP Emergency Medicine; Visit Provider Emergency Medicine
DX: D64.9 Anemia, unspecified (principal); R73.01 Impaired fasting glucose; Z68.43 Body mass index [BMI] 50.0-59.9, adult
CPT/HCPCS: 36415; 80053; 80061; 83036; 84443; 85025

== ENCOUNTER 2023-12-19 08:41 | Outpatient (CLI) | payer OTHER, SELFPAY ==
[2023-12-19 19:33] LABS: Alanine Aminotransferase 29 U/L (6-35); Albumin Level 3.7 g/dL (3.5-5.1); Alkaline Phosphatase 103 U/L (38-126); Anion Gap 7 mmol/L (4-12); Aspartate Amino Transferase 46 U/L (14-36); Bilirubin,Total 0.6 mg/dL (0.2-1.3); Blood Urea Nitrogen 9 mg/dL (7-17); Calcium 8.7 mg/dL (8.4-10.2); Carbon Dioxide 28 mmol/L (22-30); Chloride 102 mmol/L (98-107); Estimated Glomerular Filt Rate > 60; Glucose 180 mg/dL (65-110); Potassium 3.7 mmol/L (3.4-5.0); Sodium 137 mmol/L (137-145)
[2023-12-19 20:35] LABS: Creatinine Urine 343.2 mg/dL
[2023-12-19 20:37] LABS: MALB Creatinine Ratio 10.1 mg/g (0-30); Microalbumin Urine Random 34.5 mg/L (0-16.7)
[2023-12-21 13:20] LABS: Hemoglobin A1C 7.2 % (<5.7)
== END 2023-12-19 08:42 | disposition home or self-care (01) ==
LOC: ANHGOSHLAB 08:43
PROVIDERS: PCP Emergency Medicine; Visit Provider Emergency Medicine
DX: E11.9 Type 2 diabetes mellitus without complications (principal)
CPT/HCPCS: 36415; 80053; 82043; 83036

== ENCOUNTER 2024-01-31 09:28 | Outpatient (CLI) | payer OTHER, SELFPAY ==
--- NOTE | 2024-01-31 11:30 | NEURO_ITS ---
Impression: # Complains of numbness of hands. Non-diabetic. # Left ulnar neuropathy across the elbow. # Early sensory right Carpal Tunnel Syndrome. # Normal needle/EMG exam. Nerve Conduction Studies Anti Sensory Summary Table Stim Site NR Peak (ms) P-T Amp (?V) Site1 Site2 Delta-P (ms) Dist (cm) Adrián (m/s) Left Median Anti Sensory (2-3nd Digit) Wrist 2.8 85.1 Wrist 2-3nd Digit 2.8 14.0 50 Wrist 2.8 75.3 Wrist 2-3nd Digit 2.8 14.0 50 Right Median Anti Sensory (2-3nd Digit) Wrist 3.2 50.5 Wrist 2-3nd Digit 3.2 14.0 44 Wrist 3.3 73.3 Wrist 2-3nd Digit 3.2 14.0 44 Left Radial Anti Sensory (Base 1st Digit) Wrist 1.8 21.4 Wrist Base 1st Digit 1.8 0.0 Right Radial Anti Sensory (Base 1st Digit) Wrist 1.9 5.8 Wrist Base 1st Digit 1.9 0.0 Left Ulnar Anti Sensory (5th Digit) Wrist 2.1 54.1 Wrist 5th Digit 2.1 14.0 67 Right Ulnar Anti Sensory (5th Digit) Wrist 2.2 71.6 Wrist 5th Digit 2.2 14.0 64 Motor Summary Table Stim Site NR Onset (ms) O-P Amp (mV) Site1 Site2 Delta-0 (ms) Dist (cm) Adrián (m/s) Left Median Motor (Abd Poll Brev) Wrist 3.2 4.0 Elbow Wrist 4.4 27.0 61 Elbow 7.6 2.6 Right Median Motor (Abd Poll Brev) Wrist 3.4 2.5 Elbow Wrist 4.7 27.0 57 Elbow 8.1 1.8 Left Ulnar Motor (Abd Dig Minimi) Wrist 2.7 4.0 A Elbow Wrist 5.7 28.0 49 A Elbow 8.4 3.2 B Elbow Wrist 3.4 20.0 59 B Elbow 6.1 4.6 Right Ulnar Motor (Abd Dig Minimi) Wrist 2.3 4.3 A Elbow Wrist 4.9 28.0 57 A Elbow 7.2 3.8 F Wave Studies NR F-Lat (ms) L-R F-Lat (ms) Left Median (Mrkrs) (Abd Poll Brev) 25.97 2.42 Right Median (Mrkrs) (Abd Poll Brev) 28.38 2.42 Left Ulnar (Mrkrs) (Abd Dig Min) 27.82 0.18 Right Ulnar (Mrkrs) (Abd Dig Min) 27.64 0.18 EMG Side Muscle Nerve Root Ins Act Fibs Amp Dur Recrt Comment Right 1stDorInt Ulnar C8-T1 Nml Nml Nml Nml Nml Right Ext Indicis Radial (Post Int) C7-8 Nml Nml Nml Nml Nml Right Ext Digitorum Radial (Post Int) C7-8 Nml Nml Nml Nml Nml Right BrachioRad Radial C5-6 Nml Nml Nml Nml Nml Right PronatorTeres Median C6-7 Nml Nml Nml Nml Nml Right Abd Poll Brev Median C8-T1 Nml Nml Nml Nml Nml Right ABD Dig Min Ulnar C8-T1 Nml Nml Nml Nml Nml Left 1stDorInt Ulnar C8-T1 Nml Nml Nml Nml Nml Left Ext Indicis Radial (Post Int) C7-8 Nml Nml Nml Nml Nml Left Ext Digitorum Radial (Post Int) C7-8 Nml Nml Nml Nml Nml Left BrachioRad Radial C5-6 Nml Nml Nml Nml Nml Left PronatorTeres Median C6-7 Nml Nml Nml Nml Nml Left Abd Poll Brev Median C8-T1 Nml Nml Nml Nml Nml Left ABD Dig Min Ulnar C8-T1 Nml Nml Nml Nml Nml MTDD
== END 2024-01-31 09:29 | disposition home or self-care (01) ==
PROVIDERS: PCP Emergency Medicine; Visit Provider Emergency Medicine
DX: G56.22 Lesion of ulnar nerve, left upper limb (principal)
CPT/HCPCS: 95886; 95911

== ENCOUNTER 2024-04-05 15:00 | Outpatient (RCR) | payer OTHER, SELFPAY ==
--- NOTE | 2024-03-06 15:06 | OTOPEVAL1 ---
Assessment and note entered by PATT Yoon/Devin, CHT Evaluation Information Assessment Status Evaluation Diagnosis Carpal tunnel syndrome, bilateral UE; Lesion of ulnar nerve, left UE Subjective Information Patient is right handed. 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 She reports symptoms began around June 2023. She describes issues with her elbows - difficulties straightening the elbows, states they get stuck . She reports her wrists pop all the time and become painful, reporting she had a hard time driving the other day. At the end of the day she reports a burning sensation in bilateral palms and she uses ice to help calm this down. She reports intermittent tingling in bilateral hands. She notices tingling in the right hand when writing for 2+ minutes or so. She notes tingling in the left hand when her arm is in particular positions for a period of time. She also reports the joints of her hands are stiff, difficulties making a fist, difficulties gripping objects with any sort of strength. Reporting she has been unable to open drinks, jars, etc. EMG 01/31/24: # Left ulnar neuropathy across the elbow. # Early sensory right Carpal Tunnel Syndrome. # Normal needle/EMG exam. Reported Pain Level Pain Score 2: Self Report Assessment OT Clinical Summary Patient referred to OT with dx of bilateral carpal tunnel syndrome and left lesion of ulnar nerve. She presents with positive median nerve tension test bilaterally and ulnar nerve tension test on the left. Educated on ergonomics and UE positioning, nerve glides, and orthotic use to help facilitate reduced nerve compression. Continued follow up indicated for use of modalities, manual therapy, HEP progression, and therapeutic exercise to facilitate improved functional strength, reduced pain, and reduced paresthesia in bilateral UEs. Plan of Care Interventions Therapeutic Exercise,Manual Therapy,Therapeutic Activities,Hot Pack/Cold Pack,Ultrasound,Paraffin OT Services Indicated Yes Treatment Frequency and 1x/week for 5 visits Duration These treatments will address the objective and functional deficits as defined above. The patient will be advanced safely and appropriately in order fo
--- NOTE | 2024-03-06 15:07 | OPREHPOC ---
Outpatient Therapy Plan of Care This is a Multidisciplinary Plan of Care that may contain components documented by all disciplines (PT, OT, and ST.) OT Problem 1 OT Problem #1 Knowledge Deficit OT Goal 1 Goal / Goal Update Patient to be independent with instructed materials. Target Visit 5 OT Goal 1 Goal / Goal Update Patient to report reduced pain in bilateral hands to 0/10 at rest. Target Visit 5 OT Goal 2 Goal / Goal Update Patient to report reduced pain in bilateral hands to 2/10 with ADLs. Target Visit 5 OT Problem 3 OT Problem #3 Impaired Flexibility OT Goal 1 Goal / Goal Update Patient to have negative median and ulnar nerve compression tests. Target Visit 5 OT Problem 4 OT Problem #4 Impaired Strength OT Goal 1 Goal / Goal Update To improve functional UE strength for ADLs, patient to be able to complete - gross shoulder strengthening with red t-band 1x10 - gross elbow/forearm strengthening with 5 lb. free weight 1x10 - gross wrist strengthening with 3 lb. free weight 1x10 - finished stock inspector strengthening with red putty x5 minutes Target Visit 5
--- NOTE | 2024-04-05 15:59 | OTOPDC ---
Assessment and note entered by Reginald Haque, OTR/Devin, SOLITARIOT OT D/C SUMMARY 04/05/24 Diagnosis Carpal tunnel syndrome, bilateral UE; Lesion of ulnar nerve, left UE ICD-10 Condition Codes (OT) M79.641,M79.642,Paresthesia of skin R20.2 Subjective Information Patient reports no change in her symptoms. She reports continued generalized joint stiffness in bilateral wrists and hands. She reports her elbows continue to pop and get stuck . She continues to report a burning sensation in bilateral hands on a daily basis. She reports tingling in her hands are activity dependent and it is not necessarily happening to both hands at the same time. functionally she reports no change - she continues to have difficulties with opening jars, lifting objects, and gripping. Patient had an adverse reaction to heat - using paraffin at the clinic for example. She reports increased burning in her palms and increased hand stiffness after the heat treatment. EMG 01/31/24: # Left ulnar neuropathy across the elbow. # Early sensory right Carpal Tunnel Syndrome. # Normal needle/EMG exam. Reported Pain Level Pain Score 0: Self Report Additional Pain Score Comments Patient has no pain at rest. With movement, she reports all the joints in bilateral hands increase to 4/10. With movement, she reports the pain in bilateral wrists increases to 3/10. Assessment OT Clinical Summary Patient referred to OT with dx of bilateral carpal tunnel syndrome and left lesion of ulnar nerve. She has attended 5 sessions. Unfortunately she is reporting no change in her symptoms. Upper limb tension testing today shows reduced sensitivity in the ulnar nerve on the left, but bilateral median nerve tests are positive. With wall angels exercise the patient experiences onset of tingling in digits II-V. She also is experiencing symptoms completely unrelated to nerve compression which she does not have a diagnosis for. She had an adverse reaction to heat and generalized joint stiffness and pain in bilateral hands, wrists, and elbows. Unfortunately at this time the patient has not progressed with therapy. She continues to have symptoms that are consistent with more proximal nerve compression, potentially cervical in nature, whi
== END 2024-04-06 10:31 | disposition home or self-care (01) ==
LOC: ANHOT 15:00
PROVIDERS: PCP Emergency Medicine; Visit Provider Emergency Medicine
DX: G56.03 Carpal tunnel syndrome, bilateral upper limbs (principal); G56.22 Lesion of ulnar nerve, left upper limb
CPT/HCPCS: 97018; 97035; 97110; 97166